=== PATIENT | male | born 1945 | race Two or more races ===

== ENCOUNTER → 2016-08-05 | Outpatient (CLI) | payer OTHER ==
--- NOTE | 2016-08-05 10:56 | RAD ---
Abdominal ultrasound - limited to the kidneys Indication: Stage III chronic kidney disease. Comparison: CT abdomen pelvis 11/04/2010. Procedure: Transabdominal ultrasound images are obtained of the kidneys and bladder. Findings: Right kidney measures 11.4 cm in length. Right kidney is without evidence of obstruction or stone. Parenchymal echogenicity of the right kidney appears appropriate. Left kidney demonstrates severe hydronephrosis which has developed from the previous study. Left kidney measures 10.2 cm in length. There is marked cortical thinning of left kidney. Visualized left ureter is also dilated. Urinary bladder wall appears thickened. The prevoid bladder volume is estimated at 75 mL. Post void bladder volume is small 45 mL. Impression: 1. Severe left hydroureteronephrosis. Definitive cause is not identified.Severe cortical thinning and atrophy of left kidney. 2. Unremarkable appearance of the right kidney. 3. Urinary bladder wall appears thickened. This is nonspecific, but could be indicative of chronic bladder outlet obstruction or cystitis. Recommend clinical correlation.
== END | disposition home or self-care (01) ==
LOC: US 09:04
PROVIDERS: ATTEND Internal Medicine Nephrology
DX: N18.3 Chronic kidney disease, stage 3 (moderate) (principal); N13.30 Unspecified hydronephrosis
CPT/HCPCS: 76770

== ENCOUNTER 2018-03-02 13:20 | Emergency (ER) | payer OTHER ==
[2018-03-02] MEDS ORDERED: ASPIRIN 81 MG TAB.CHEW PO ONE (13:45)
--- NOTE | 2018-03-02 13:49 | RAD ---
CT head without contrast 03/02/2018 CLINICAL INDICATION: Facial droop, left-sided weakness. COMPARISON: None. TECHNIQUE: Right temporal left occipital encephalomalacia. Patchy and confluent periventricular and deep white matter low-attenuation. No midline shift. No acute intracranial hemorrhage. Mild prominence of the ventricles and subarachnoid spaces. Incidental dural calcifications of the tentorium cerebelli the basal cisterns are patent. The visualized mastoid air cells and paranasal sinuses are well aerated. IMPRESSION: 1. No acute intracranial hemorrhage. 2. 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 3. Moderate nonspecific white matter disease, most commonly seen with chronic small vessel ischemic disease. These results were discussed with Dr. Simmons of the emergency service by telephone at 1:45 PM 03/02/[address] Reece Sigala. Electronically signed by: Reece Sigala MD (03/02/2018 1:46 PM) [facility]
[2018-03-02 13:59] LABS: BASO # 0.1 x10^3/uL (0.0-0.2); BASO % 1 % (0-3); EOS # 0.2 x10^3/uL (0.0-0.7); EOS % 2 % (0-3); HEMATOCRIT 41.2 % (39.0-53.0); HEMOGLOBIN 13.6 g/dL (13.0-17.5); LYMPH # 1.2 x10^3/uL (1.0-4.8); LYMPH % 17 % (24-48); MEAN CORPUSCULAR HEMOGLOBIN 30 pg (25-35); MEAN CORPUSCULAR HGB CONC 33 g/dL (31-37); MEAN CORPUSCULAR VOLUME 92 fL (79-100); MONO # 0.8 x10^3/uL (0.0-1.1); MONO % 11 % (0-9); NEUT % 70 % (31-73); PLATELET COUNT 236 x10^3/uL (140-400); RED BLOOD COUNT 4.48 x10^6/uL (4.30-5.70); RED CELL DISTRIBUTION WIDTH 13.9 % (11.5-14.5); WHITE BLOOD COUNT 7.2 x10^3/uL (4.0-11.0)
[2018-03-02] MEDS ORDERED: IV NORMAL SALINE 50ML 50 ML IV ONE (14:00)
[2018-03-02] MEDS ORDERED: ALTEPLASE 0 MG IV ONE (14:00)
[2018-03-02] MEDS ORDERED: LABETALOL 20 MG/4 ML DISP.SYRIN. IV PRN (14:00)
[2018-03-02] MEDS ORDERED: ALTEPLASE 0 MG IV SCH (14:00)
--- NOTE | 2018-03-02 14:13 | EKG ---
[address] [address] Test Date: 2018-03-02 Test Time: 13:35:39 Pat Name: TIESHA YOUSIF Department: Room: Gender: M Branch Assistant: : 1945 Requested By: ANGLE OVALLES Order Number: [id number] Reading MD: Deep Spaulding Measurements Intervals [place] Rate: 78 P: 31 TN: 174 QRS: -3 QRSD: 82 T: 11 QT: 364 QTc: 418 Interpretive Statements SINUS RHYTHM LEFTWARD AXIS LOW LIMB LEAD VOLTAGE QRS(T) CONTOUR ABNORMALITY CONSIDER ANTEROSEPTAL MYOCARDIAL DAMAGE POSSIBLY ABNORMAL ECG Electronically Signed On 03-06-2018 10:53:19 [employer] by Deep Spaulding
--- NOTE | 2018-03-02 14:29 | PHYS DOC ---
Adult General Chief Complaint Chief Complaint: NEURO SYMPTOMS/DEFICITS HPI HPI Patient is a 72-year-old male who presents with acute onset of left-sided weakness and facial droop. EMS had reported symptom onset at 12:15 PM. Upon arrival, patient has a complete left sided david-neglect. Upon patient's sister arrival, she indicates that patient had actually started with symptoms at about 11 PM. She states that he had gone to the bathroom and had fallen and when family went to help him up, he was slurring speech. Symptoms had acutely worsened at about 12:15 after which she was noted to have a left-sided facial droop and left-sided weakness. Patient denies any chest pain or shortness of breath. He also denies any headache. Review of Systems Review of Systems Constitutional: Denies fever or chills [] Respiratory: Denies cough or shortness of breath [] Cardiovascular: No additional information not addressed in HPI [] GI: Denies abdominal pain, nausea, vomiting or diarrhea [] Neurologic: Denies headache. Positive left sided weakness, sensory change and facial droop. [] All other systems were reviewed and found to be within normal limits, except as documented in this note. Current Medications Current Medications Current Medications Medications (Trade) Dose Ordered Sig/Sabi Start Time Stop Time Status Last Admin Dose Admin Alteplase, Recombinant 0 ml @ 0 mls/hr Q1H 03/02/18 14:00 03/02/18 14:01 UNV Aspirin (Children'S Aspirin) 324 mg 1X ONCE 03/02/18 13:45 03/02/18 13:46 UNV Labetalol HCl (Normodyne) 10 mg PRN Q10MIN PRN 03/02/18 14:00 UNV Nicardipine HCl 50 mg/Sodium Chloride 270 ml @ 27 mls/hr CONT PRN PRN 03/02/18 14:00 UNV Sodium Chloride 50 ml @ 0 mls/hr 1X ONCE 03/02/18 14:00 03/02/18 14:01 UNV Physical Exam Physical Exam Constitutional: Well developed, well nourished, no acute distress, non-toxic appearance. [] HENT: Normocephalic, atraumatic, bilateral external ears normal, oropharynx moist, no oral exudates, nose normal. [] Eyes: PERRLA, EOMI, conjunctiva normal, no discharge. [] Neck: Normal range of motion, no tenderness, supple. [] Cardiovascular: Regular rate and rhythm[] Lungs & Thorax: Bilateral breath sounds clear to auscultation [] Abdomen: Bowel sounds normal, soft, no tenderness. [] Skin: Warm, dry, no erythema, no rash. [] Back: No tenderness, no CVA tenderness. [] Extremities: No tenderness, no cyanosis, no clubbing, ROM intact, no edema. [] Neurologic: Awake and alert. Cranial nerve testing demonstrates cranial nerve deficits 2, 3, 5, 7 and 12 on the left, there is markedly left-sided weakness with near flaccid paralysis of the left upper extremity and significant weakness of 1+ to 2 minus out of 5 in the lower extremity, patient has full loss of sensation in the left arm and loss of light touch in the leg. [] Current Patient Data Lab Results Laboratory Tests Test 03/02/18 13:35 White Blood Count 7.2 x10^3/uL (4.0-11.0) Red Blood Count 4.48 x10^6/uL (4.30-5.70) Hemoglobin 13.6 g/dL (13.0-17.5) Hematocrit 41.2 % (39.0-53.0) Mean Corpuscular Volume 92 fL (79-100) Mean Corpuscular Hemoglobin 30 pg (25-35) Mean Corpuscular Hemoglobin Concent 33 g/dL (31-37) Red Cell Distribution Width 13.9 % (11.5-14.5) Platelet Count 236 x10^3/uL (140-400) Neutrophils (%) (Auto) 70 % (31-73) Lymphocytes (%) (Auto) 17 % (24-48) L Monocytes (%) (Auto) 11 % (0-9) H Eosinophils (%) (Auto) 2 % (0-3) Basophils (%) (Auto) 1 % (0-3) Neutrophils # (Auto) 5.0 x10^3uL (1.8-7.7) Lymphocytes # (Auto) 1.2 x10^3/uL (1.0-4.8) Monocytes # (Auto) 0.8 x10^3/uL (0.0-1.1) Eosinophils # (Auto) 0.2 x10^3/uL (0.0-0.7) Basophils # (Auto) 0.1 x10^3/uL (0.0-0.2) EKG EKG [] Radiology/Procedures Radiology/Procedures [] Impressions: CT head without contrast 03/02/2018 CLINICAL INDICATION: Facial droop, left-sided weakness. COMPARISON: None. TECHNIQUE: Right temporal left occipital encephalomalacia. Patchy and confluent periventricular and deep white matter low-attenuation. No midline shift. No acute intracranial hemorrhage. Mild prominence of the ventricles and subarachnoid spaces. Incidental dural calcifications of the tentorium cerebelli the basal cisterns are patent. The visualized mastoid air cells and paranasal sinuses are well aerated. IMPRESSION: 1. No acute intracranial hemorrhage. 2. 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 3. Moderate nonspecific white matter disease, most commonly seen with chronic small vessel ischemic disease. These results were discussed with Dr. Simmons of the emergency service by telephone at 1:45 PM 03/02/[address] Reece Sigala. Course & Med Decision Making Course & Med Decision Making Pertinent Labs and Imaging studies reviewed. (See chart for details) Patient moved to CT scanner upon arrival and upon arrival back from CT scanner was evaluated by your medical staff. IV was established and blood work drawn. NIH stroke scale was completed to the best of staff ability. Please refer to report. [facility] urology was consultation and they recommend transfer to for possible thrombectomy. At this point the bat line was contacted and Dr. Viera will accept patient in transfer. Dragon Disclaimer Dragon Disclaimer This electronic medical record was generated, in whole or in part, using a voice recognition dictation system. Departure Departure: Impression: Primary Impression: Neurologic deficit due to acute ischemic cerebrovascular accident (CVA) Disposition: 02 XFER SHT-TRM HOSP Condition: GUARDED Referrals: KATHIA EASTON (PCP) ANGLE SIMMONS Jr. DO Mar 02, 2018 14:29
[2018-03-02 14:35] LABS: ALBUMIN 2.5 g/dL (3.4-5.0); ALBUMIN/GLOBULIN RATIO 0.8 (1.0-1.7); CREATININE 1.5 mg/dL (0.7-1.3); POTASSIUM 3.4 mmol/L (3.5-5.1); TOTAL BILIRUBIN 0.6 mg/dL (0.2-1.0); TOTAL PROTEIN 5.6 g/dL (6.4-8.2)
[2018-03-02 15:16] VITALS: BP 145/71
--- NOTE | 2018-03-02 16:17 | RAD ---
Single view chest 03/02/2018 CLINICAL INDICATION: Code stroke. COMPARISON: None. FINDINGS: There is a rounded mass overlying the left lung base does not silhouette the left heart border. Right lung is clear. No pneumothorax. IMPRESSION: Suspicion for left lower lobe mass. CT chest is recommended for further evaluation. This result was discussed with Dr. Simmons of the emergency service by telephone at 4:15 PM 03/02/[address] Reece Sigala. Electronically signed by: Reece Sigala MD (03/02/2018 4:14 PM) [facility]
== END 2018-03-02 14:10 | disposition short-term general hospital (02) ==
LOC: ER 13:20
DX: I63.89 Other cerebral infarction (principal); G93.89 Other specified disorders of brain
CPT/HCPCS: 36415; 37195; 70450; 71045; 80053; 84484; 85025; 85610; 85730; 93005; 99285; J2997

== ENCOUNTER 2018-06-04 09:26 | Emergency (ER) | payer OTHER ==
[2018-06-04 09:49] VITALS: BP 138/84
--- NOTE | 2018-06-04 10:15 | PHYS DOC ---
Past History Past Medical History: CVA, Diabetes, Hypertension Past Surgical History: No Surgical History Alcohol Use: None Drug Use: None Adult General Chief Complaint Chief Complaint: FOOT INJURY PAIN HPI HPI 72-year-old male presents with right foot pain. The patient states that he noticed the ends of his toe starting a black 4 days ago. He comes in today because he took off his sock and had soreness and pain in his distal foot and noticed there was lots of black skin across his toes. The patient is a diabetic. He admits his blood sugar is not well-controlled though does not know what his usual blood sugar is. He denies fever or chills. He also has an ulcer on the bottom of his left big toe but that has been there for a long time. Review of Systems Review of Systems Constitutional: Denies fever or chills [] Eyes: Denies change in visual acuity, redness, or eye pain [] HENT: Denies nasal congestion or sore throat [] Respiratory: Denies cough or shortness of breath [] Cardiovascular: No additional information not addressed in HPI [] GI: Denies abdominal pain, nausea, vomiting, bloody stools or diarrhea [] : Denies dysuria or hematuria [] Musculoskeletal: Right foot pain[] Integument: Denies rash or skin lesions [] Neurologic: Denies headache, focal weakness or sensory changes [] Endocrine: Denies polyuria or polydipsia [] All other systems were reviewed and found to be within normal limits, except as documented in this note. Allergies Allergies Allergies Coded Allergies Type Severity Reaction Last Updated Verified No Known Drug Allergies 03/02/18 No Physical Exam Physical Exam Constitutional: Well developed, well nourished, no acute distress, non-toxic appearance. [] HENT: Normocephalic, atraumatic, bilateral external ears normal, oropharynx moist, no oral exudates, nose normal. [] Eyes: PERRLA, EOMI, conjunctiva normal, no discharge. [] Neck: Normal range of motion, no tenderness, supple, no stridor. [] Cardiovascular:Heart rate regular rhythm, no murmur [] Lungs & Thorax: Bilateral breath sounds clear to auscultation [] Abdomen: Bowel sounds normal, soft, no tenderness, no masses, no pulsatile masses. [] Skin: Warm, dry, no erythema, no rash. [] Back: No tenderness, no CVA tenderness. [] Extremities: Right distal toes with black skin necrosis on all 5. Almost the entire fifth digit is involved. Half centimeter ulceration in the bottom of the left great toe. No obvious cellulitis. Surrounding skin with normal cap refill.[ ] Neurologic: Alert and oriented X 3, normal motor function, normal sensory function, no focal deficits noted. [] Psychologic: Affect normal, judgement normal, mood normal. [] Current Patient Data Vital Signs Vital Signs Date Time Temp Pulse Resp B/P (MAP) Pulse Ox O2 Delivery O2 Flow Rate FiO2 06/04/18 09:49 Room Air 06/04/18 09:49 97.8 83 20 99 EKG EKG [] Radiology/Procedures Radiology/Procedures [] Impressions: CT of the left foot without contrast Indication: RIGHT FOOT NECROSIS, ULCER ON BOTTOM ASPECT OF 1ST DIGIT, ALL OF DIGITS ARE BLACK ONSET 4 DAYS AGO PER PATIENT, OOZING, PT DIABETIC. FOOT IS PAINFUL TO TOUCH. Exposure: One or more of the following individualized dose reduction techniques were utilized for this examination: 1. Automated exposure control 2. Adjustment of the mA and/or kV according to patient size 3. Use of iterative reconstruction technique. Comparison: None are available. TECHNIQUE: Routine multiplanar reconstructions are obtained after scanning of the right foot. No intravenous contrast. FINDINGS: Generalized bone demineralization. Small accessory navicular bone identified with mild degenerative changes at the synchondrosis. No evidence of an acute fracture or dislocation. Primary osteoarthritis is identified. No aggressive bone destruction is suggested. No obvious acute soft tissue fluid collection. The distal tibia demonstrates fixation screws at the medial malleolus. There is also plate and screw fixation of the distal fibula with evidence of an old fracture. Calcaneal enthesophytes. IMPRESSION: Primary osteoarthritis. No acute fracture or aggressive bone destruction. MR of the foot could be of benefit to evaluate for osteomyelitis or abscess. Electronically signed by: Toni Lopez MD (06/04/2018 10:56 AM) [facility] DICTATED AND SIGNED BY: TONI LOPEZ MD DATE: 06/04/18 1046 CC: CELINA JOYNER DO; KATHIA EASTON Course & Med Decision Making Course & Med Decision Making Pertinent Labs and Imaging studies reviewed. (See chart for details) The patient has obvious ischemic ulcers on the right distal toes. I have ordered a CT of the foot. The CT does not show any aggressive bone erosion. His chest x-ray is negative for acute findings. I will consult orthopedics work on transferring him to [facility]. I discussed the patient with Dr. Rucker, orthopedics and he would like the patient transferred to [facility]. I discussed the patient with Dr. Perez, the hospitalist and he has accepted the patient for transfer and admission. [] Dragon Disclaimer Dragon Disclaimer This electronic medical record was generated, in whole or in part, using a voice recognition dictation system. Departure Departure: Impression: Primary Impression: Dry gangrene Disposition: XFER SHT-TRM HOSP Condition: STABLE Referrals: KATHIA EASTON (PCP) CELINA JOYNER DO Jun 04, 2018 10:15
--- NOTE | 2018-06-04 10:32 | RAD ---
CHEST PA LATERAL History: PRE OP FOR RIGHT FOOT. RIGHT FOOT NECROSIS. DIABETIC PT. Comparison: March 02, 2018 Heart size is not enlarged. No evidence of pneumothorax, pleural effusion or focal airspace consolidation. Straightening of the normal thoracic kyphosis. Mild wedging of thoracolumbar vertebral body could be developmental or due to a prior compression fracture. IMPRESSION: No acute consolidating infiltrate. Electronically signed by: Wilson Lopez MD (06/04/2018 10:29 AM) [facility]
[2018-06-04 10:39] LABS: BASO # 0.1 x10^3/uL (0.0-0.2); BASO % 1 % (0-3); EOS # 0.1 x10^3/uL (0.0-0.7); EOS % 1 % (0-3); HEMATOCRIT 35.3 % (39.0-53.0); HEMOGLOBIN 11.7 g/dL (13.0-17.5); LYMPH # 1.6 x10^3/uL (1.0-4.8); LYMPH % 13 % (24-48); MEAN CORPUSCULAR HEMOGLOBIN 30 pg (25-35); MEAN CORPUSCULAR HGB CONC 33 g/dL (31-37); MEAN CORPUSCULAR VOLUME 91 fL (79-100); MONO # 1.2 x10^3/uL (0.0-1.1); MONO % 10 % (0-9); NEUT # 9.6 x10^3uL (1.8-7.7); NEUT % 76 % (31-73); PLATELET COUNT 519 x10^3/uL (140-400); RED CELL DISTRIBUTION WIDTH 14.1 % (11.5-14.5); WHITE BLOOD COUNT 12.7 x10^3/uL (4.0-11.0)
[2018-06-04 10:54] LABS: ALBUMIN 2.6 g/dL (3.4-5.0); ALBUMIN/GLOBULIN RATIO 0.5 (1.0-1.7); CALCIUM 9.5 mg/dL (8.5-10.1); POTASSIUM 4.1 mmol/L (3.5-5.1); TOTAL BILIRUBIN 0.7 mg/dL (0.2-1.0); TOTAL PROTEIN 8.3 g/dL (6.4-8.2)
--- NOTE | 2018-06-04 10:59 | RAD ---
CT of the left foot without contrast Indication: RIGHT FOOT NECROSIS, ULCER ON BOTTOM ASPECT OF 1ST DIGIT, ALL OF DIGITS ARE BLACK ONSET 4 DAYS AGO PER PATIENT, OOZING, PT DIABETIC. FOOT IS PAINFUL TO TOUCH. Exposure: One or more of the following individualized dose reduction techniques were utilized for this examination: 1. Automated exposure control 2. Adjustment of the mA and/or kV according to patient size 3. Use of iterative reconstruction technique. Comparison: None are available. TECHNIQUE: Routine multiplanar reconstructions are obtained after scanning of the right foot. No intravenous contrast. FINDINGS: Generalized bone demineralization. Small accessory navicular bone identified with mild degenerative changes at the synchondrosis. No evidence of an acute fracture or dislocation. Primary osteoarthritis is identified. No aggressive bone destruction is suggested. No obvious acute soft tissue fluid collection. The distal tibia demonstrates fixation screws at the medial malleolus. There is also plate and screw fixation of the distal fibula with evidence of an old fracture. Calcaneal enthesophytes. IMPRESSION: Primary osteoarthritis. No acute fracture or aggressive bone destruction. MR of the foot could be of benefit to evaluate for osteomyelitis or abscess. Electronically signed by: Wilson Lopez MD (06/04/2018 10:56 AM) [facility]
[2018-06-04 11:33] LABS: BACTERIA,URINE 0 /HPF (0-FEW); BILIRUBIN,URINE NEG (NEG); CLARITY,URINE CLEAR; COLOR,URINE YELLOW; GLUCOSE,URINE NEG (NEG); NITRITE,URINE NEG (NEG); RBC,URINE 0 /HPF (0-2); UROBILINOGEN,URINE 0.2 mg/dL (0.2 mg/dL); WBC,URINE RARE /HPF (0-4)
[2018-07-28] MEDS ORDERED: METO5TAB4 PO (12:12)
[2018-07-28] MEDS ORDERED: AMOX1TAB58 PO (12:12)
[2018-07-28] MEDS ORDERED: FURO-68 PO (12:12)
== END 2018-06-04 14:27 | disposition short-term general hospital (02) ==
LOC: ER 09:26
DX: E11.52 Type 2 diabetes mellitus with diabetic peripheral angiopathy with gangrene (principal); I96 Gangrene, not elsewhere classified; I10 Essential (primary) hypertension; M19.072 Primary osteoarthritis, left ankle and foot; Z86.73 Personal history of transient ischemic attack (TIA), and cerebral infarction without residual deficits
CPT/HCPCS: 36415; 71046; 73700; 80053; 81001; 85025; 85610; 85730; 99285

== ENCOUNTER 2018-06-23 19:26 | Inpatient (IN) | payer OTHER ==
[~2018-06-23] VITALS: Ht 170.2 cm; Wt 103.1 kg
[2018-06-23 20:15] LABS: BASO % 1 % (0-3); EOS # 0.2 x10^3/uL (0.0-0.7); EOS % 5 % (0-3); HEMATOCRIT 20.3 % (39.0-53.0); LYMPH # 0.8 x10^3/uL (1.0-4.8); LYMPH % 17 % (24-48); MEAN CORPUSCULAR HEMOGLOBIN 30 pg (25-35); MEAN CORPUSCULAR HGB CONC 34 g/dL (31-37); MEAN CORPUSCULAR VOLUME 89 fL (79-100); MONO # 0.5 x10^3/uL (0.0-1.1); MONO % 10 % (0-9); NEUT # 3.1 x10^3uL (1.8-7.7); NEUT % 66 % (31-73); PLATELET COUNT 103 x10^3/uL (140-400); RED BLOOD COUNT 2.29 x10^6/uL (4.30-5.70); RED CELL DISTRIBUTION WIDTH 13.9 % (11.5-14.5); WHITE BLOOD COUNT 4.6 x10^3/uL (4.0-11.0)
[2018-06-23 20:21] LABS: HEMOGLOBIN 6.9 g/dL (13.0-17.5)
[2018-06-23 20:34] LABS: ALBUMIN 2.2 g/dL (3.4-5.0); ALBUMIN/GLOBULIN RATIO 0.7 (1.0-1.7); CALCIUM 8.4 mg/dL (8.5-10.1); CREATININE 1.8 mg/dL (0.7-1.3); GFR 37.3; MAGNESIUM 1.6 mg/dL (1.8-2.4); TOTAL BILIRUBIN 0.6 mg/dL (0.2-1.0); TOTAL PROTEIN 5.5 g/dL (6.4-8.2)
--- NOTE | 2018-06-23 20:59 | PHYS DOC ---
Past History Past Medical History: CVA, Diabetes, Hypertension Past Surgical History: Other Alcohol Use: None Drug Use: None Adult General Chief Complaint Chief Complaint: ALTERED MENTAL STATUS [facility] HPI Patient is a 72-year-old male who presents via EMS with reports of mental status change. Patient reportedly had woken up from a nap and was confused as to his surroundings, with report that he Stating that he was not in his room when it was indeed his room. Upon arrival, patient is oriented 4 and states that he was confused because when he awoke he found that his furniture had been moved around and that made him feel disoriented. Currently he denies any complaints to include chest pain, shortness of breath, abdominal pain, nausea or vomiting. Review of Systems Review of Systems Constitutional: Denies fever or chills [] Respiratory: Denies cough or shortness of breath [] Cardiovascular: No additional information not addressed in HPI [] GI: Denies abdominal pain, nausea, vomiting, bloody stools. Patient does admit to diarrhea. [] Neurologic: Denies headache, focal weakness or sensory changes [] All other systems were reviewed and found to be within normal limits, except as documented in this note. Allergies Allergies Allergies Coded Allergies Type Severity Reaction Last Updated Verified No Known Drug Allergies 03/02/18 No Physical Exam Physical Exam Constitutional: Well developed, well nourished, no acute distress, non-toxic appearance. [] HENT: Normocephalic, atraumatic, bilateral external ears normal, oropharynx moist, no oral exudates, nose normal. [] Eyes: PERRLA, EOMI, conjunctiva normal, no discharge. [] Neck: Normal range of motion, no tenderness, supple, no stridor. [] Cardiovascular:Heart rate regular rhythm, no murmur [] Lungs & Thorax: Bilateral breath sounds clear to auscultation [] Abdomen: Bowel sounds normal, soft, no tenderness. [] Skin: Warm, dry, no erythema, no rash. [] Extremities: No tenderness, no cyanosis, ROM intact. [] Neurologic: Alert and oriented X 3, no focal deficits noted. [] Current Patient Data Vital Signs Vital Signs Date Time Temp Pulse Resp B/P (MAP) Pulse Ox O2 Delivery O2 Flow Rate FiO2 06/23/18 19:45 98.0 78 18 98 Room Air Lab Results Laboratory Tests Test 06/23/18 20:03 White Blood Count 4.6 x10^3/uL (4.0-11.0) Red Blood Count 2.29 x10^6/uL (4.30-5.70) L Hemoglobin 6.9 g/dL (13.0-17.5) *L Hematocrit 20.3 % (39.0-53.0) L Mean Corpuscular Volume 89 fL (79-100) Mean Corpuscular Hemoglobin 30 pg (25-35) Mean Corpuscular Hemoglobin Concent 34 g/dL (31-37) Red Cell Distribution Width 13.9 % (11.5-14.5) Platelet Count 103 x10^3/uL (140-400) L Neutrophils (%) (Auto) 66 % (31-73) Lymphocytes (%) (Auto) 17 % (24-48) L Monocytes (%) (Auto) 10 % (0-9) H Eosinophils (%) (Auto) 5 % (0-3) H Basophils (%) (Auto) 1 % (0-3) Neutrophils # (Auto) 3.1 x10^3uL (1.8-7.7) Lymphocytes # (Auto) 0.8 x10^3/uL (1.0-4.8) L Monocytes # (Auto) 0.5 x10^3/uL (0.0-1.1) Eosinophils # (Auto) 0.2 x10^3/uL (0.0-0.7) Basophils # (Auto) 0.0 x10^3/uL (0.0-0.2) Sodium Level 143 mmol/L (136-145) Potassium Level 4.0 mmol/L (3.5-5.1) Chloride Level 108 mmol/L (98-107) H Carbon Dioxide Level 27 mmol/L (21-32) Anion Gap 8 (6-14) Blood Urea Nitrogen 17 mg/dL (8-26) Creatinine 1.8 mg/dL (0.7-1.3) H Estimated GFR (Cockcroft-Gault) 37.3 BUN/Creatinine Ratio 9 (6-20) Glucose Level 103 mg/dL (70-99) H Calcium Level 8.4 mg/dL (8.5-10.1) L Magnesium Level 1.6 mg/dL (1.8-2.4) L Total Bilirubin 0.6 mg/dL (0.2-1.0) Aspartate Amino Transferase (AST) 22 U/L (15-37) Alanine Aminotransferase (ALT) 18 U/L (16-63) Alkaline Phosphatase 105 U/L (46-116) Total Protein 5.5 g/dL (6.4-8.2) L Albumin 2.2 g/dL (3.4-5.0) L Albumin/Globulin Ratio 0.7 (1.0-1.7) L EKG EKG [] Radiology/Procedures Radiology/Procedures [] Course & Med Decision Making Course & Med Decision Making Pertinent Labs and Imaging studies reviewed. (See chart for details) [] Dragon Disclaimer Dragon Disclaimer This electronic medical record was generated, in whole or in part, using a voice recognition dictation system. Departure Departure: Impression: Primary Impression: Anemia Disposition: ADMITTED INPATIENT Admitting Physician: Vitor Rg Condition: GOOD Referrals: KATHIA STEELE MD (PCP) Problem Qualifiers Primary Impression: Anemia Anemia type: unspecified type Qualified Codes: D64.9 - Anemia, unspecified ANGLE OVALLES Jr. DO Jun 23, 2018 20:59
[2018-06-23] MEDS ORDERED: ACETAMINOPHEN 325 MG TABLET PO PRN (21:15)
[2018-06-23] MEDS ORDERED: MAGNESIUM OXIDE 400 MG TABLET PO ONE (21:30)
[2018-06-23 21:55] VITALS: BP 150/86
[2018-06-23] MEDS ORDERED: ACET-704 PO (22:08)
[2018-06-23] MEDS ORDERED: AMLO5TAB10 PO (22:10)
[2018-06-23] MEDS ORDERED: ATOR40TA59 PO (22:10)
[2018-06-23] MEDS ORDERED: ASPI-630 PO (22:10)
[2018-06-23 22:20] VITALS: BP 150/86
[2018-06-23] MEDS ORDERED: PIPE2.255 IV (22:38)
[2018-06-23] MEDS ORDERED: CHOL2000 PO (22:38)
[2018-06-23] MEDS ORDERED: DULA1.5P SQ (22:38)
[2018-06-23] MEDS ORDERED: INSU300I SQ (22:38)
[2018-06-23] MEDS ORDERED: METO-239 PO (22:38)
[2018-06-23] MEDS ORDERED: GLIM1TAB2 PO (22:38)
[2018-06-23] MEDS ORDERED: TAMS0.4C97 PO (22:38)
[2018-06-23] MEDS ORDERED: NIAC500T PO (22:38)
[2018-06-23] MEDS ORDERED: HYDR-2145 PO (22:38)
[2018-06-23] MEDS ORDERED: LEVO50TA5 PO (22:38)
[2018-06-23] MEDS ORDERED: MULT1TAB52 PO (22:38)
[2018-06-23] MEDS ORDERED: CLOP75TA PO (22:38)
[2018-06-23] MEDS ORDERED: LACT1CAP2 PO (22:38)
[2018-06-23 22:40] VITALS: BP_SYST 139; BP_DIAS 64; BP_DIAS 67
[2018-06-23 23:39] VITALS: BP 148/73
[2018-06-23 23:40] VITALS: BP 148/73
[2018-06-23] MEDS ORDERED: PIP/TAZO PER PHARMACY MC PRN (23:45)
[2018-06-24] VITALS (7 sets, daily range): BP systolic 111–153; BP diastolic 66–78
[2018-06-24] MEDS: PIPERACILLIN/TAZOBACTAM 2.25 GM in IV NORMAL SALINE 50ML 50 ML IV SCH ×4 (01:25→16:43)
[2018-06-24 06:05] LABS: CALCIUM 8.5 mg/dL (8.5-10.1); CREATININE 1.8 mg/dL (0.7-1.3); GFR 37.3; POTASSIUM 3.8 mmol/L (3.5-5.1)
[2018-06-24 06:12] LABS: BASO % 1 % (0-3); EOS # 0.2 x10^3/uL (0.0-0.7); EOS % 5 % (0-3); HEMATOCRIT 22.7 % (39.0-53.0); HEMOGLOBIN 7.7 g/dL (13.0-17.5); LYMPH # 0.9 x10^3/uL (1.0-4.8); LYMPH % 20 % (24-48); MEAN CORPUSCULAR HEMOGLOBIN 30 pg (25-35); MEAN CORPUSCULAR HGB CONC 34 g/dL (31-37); MEAN CORPUSCULAR VOLUME 88 fL (79-100); MONO # 0.5 x10^3/uL (0.0-1.1); MONO % 11 % (0-9); NEUT # 2.7 x10^3uL (1.8-7.7); NEUT % 62 % (31-73); PLATELET COUNT 92 x10^3/uL (140-400); RED BLOOD COUNT 2.58 x10^6/uL (4.30-5.70); RED CELL DISTRIBUTION WIDTH 13.9 % (11.5-14.5); WHITE BLOOD COUNT 4.3 x10^3/uL (4.0-11.0)
[2018-06-24] MEDS ORDERED: DEXTROSE 50% 25 GM / 50ML DISP.SYRIN. IV PRN (11:45)
[2018-06-24] MEDS ORDERED: GLIMEPIRIDE 2 MG TABLET PO SCH (12:00)
[2018-06-24] MEDS: INSULIN LISPRO 300 UNITS/3 ML INSULN.PEN. SQ SCH ×2 (12:00→17:00)
[2018-06-24] MEDS ORDERED: PIPERACILLIN/TAZOBACTAM 2.25 GM VIAL IV SCH (12:00)
[2018-06-24] MEDS: CHOLECALCIFEROL (VITAMIN D3) 1,000 UNIT TABLET PO SCH (12:25)
[2018-06-24] MEDS: LEVOTHYROXINE 50 MCG TABLET PO SCH (12:25)
[2018-06-24] MEDS: CLOPIDOGREL BISULFATE 75 MG TABLET PO SCH (12:25)
[2018-06-24] MEDS: ASPIRIN ENTERIC COATED 81 MG TABLET.DR. PO SCH (12:25)
[2018-06-24] MEDS: MULTIVITAMIN with MINERAL TABLET. PO SCH (12:26)
[2018-06-24] MEDS: METOPROLOL SUCC 24HR ER 25 MG TAB.ER.24H. PO SCH (12:26)
[2018-06-24] MEDS: hydroCHLOROthiazide 25 MG TABLET PO SCH (12:26)
[2018-06-24] MEDS: amLODIPine BESYLATE 5 MG TABLET PO SCH (12:26)
[2018-06-24] MEDS ORDERED: MAGNESIUM SULFATE 2GM 50 ML IV ONE (12:45)
[2018-06-24 12:50] LABS: FECAL OB PT NEGATIVE (NEG)
--- NOTE | 2018-06-24 16:28 | PDOC1 ---
History and Physical Chief Complaint: Chief Complain: confusion and weakness ProblemList: Anemia HPI: HPI: The patient is a 72 year old male with diabetes type 2, hyperlipidemia, coronary artery disease, hypothyroidism. He comes to the hospital because he woke up confused. He came to the ER and was admitted to the hospital because his hemoglobin 6.9. he recently had an amputation of his right toes last Tuesday. He states that he has been having some oozing around that area. He denies any hematemesis or hematochezia. He denies any fever, chills, nausea, vomiting, abdominal pain, constipation dysuria. He states that he has been having a lot of diarrhea, about 4 or 6 times per day. He received antibiotics while he was at [facility]. He also has swelling on his legs which he doesn't know the reason why. He doesn't have the diagnosis of heart failure. Past Medical History: PMH: coronary artery disease, diabetes type 2, hypothyroidism, hyperlipidemia Cardiovascular: CAD Infectious disease: Other (Osteomyelitis) Endocrine: Diabetes Past Surgical History: PSH: R toe amputations Allergies: Allergies: Coded Allergies: No Known Drug Allergies (Unverified , 03/02/18) Current Medications: Current Medications: Current Medications Medications (Trade) Dose Ordered Sig/Sabi Start Time Stop Time Status Last Admin Dose Admin Acetaminophen (Tylenol) 650 mg PRN Q4HRS PRN 06/23/18 21:15 06/24/18 21:14 Acetaminophen/ Codeine Phosphate (Tylenol #3) 1 tab Q6HRS PRN 06/24/18 11:30 Amlodipine Besylate (Norvasc) 5 mg DAILY 06/24/18 12:00 06/24/18 12:26 Aspirin (Aspirin Enteric Coated) 81 mg DAILYWBKFT 06/24/18 12:00 06/24/18 12:25 Atorvastatin Calcium (Lipitor) 40 mg QHS 06/24/18 21:00 Clopidogrel Bisulfate (Plavix) 75 mg DAILY 06/24/18 12:00 06/24/18 12:25 Dextrose 12.5 gm PRN Q15MIN PRN 06/24/18 11:45 Glimepiride (Amaryl) 1 mg BID 06/24/18 12:00 06/24/18 12:25 Hydrochlorothiazide (Hydrodiuril) 25 mg DAILY 06/24/18 12:00 06/24/18 12:26 Insulin Glargine (Lantus) 40 units HS 06/24/18 21:00 Insulin Human Lispro (HumaLOG) 0-5 UNITS TIDWMEALS 06/24/18 12:00 Lactobacillus Rhamnosus (Culturelle) 1 cap BID 06/24/18 21:00 Levothyroxine Sodium (Synthroid) 50 mcg DAILY06 06/24/18 12:00 06/24/18 12:25 Magnesium Oxide (Magnesium Oxide) 400 mg 1X ONCE 06/23/18 21:30 06/23/18 21:31 DC 06/23/18 21:26 Magnesium Sulfate 50 ml @ 25 mls/hr 1X ONCE 06/24/18 12:45 06/24/18 14:44 DC 06/24/18 13:14 Metoprolol Succinate (Toprol Xl) 25 mg DAILY 06/24/18 12:00 06/24/18 12:26 Multivitamins/ Calcium (Thera-M Plus) 1 tab DAILY 06/24/18 12:00 06/24/18 12:26 Niacin (Slo-Niacin) 500 mg QHS 06/24/18 21:00 Non-Formulary Medication (Dulaglutide (Trulicity)) 1.5 mg DAILY 06/25/18 09:00 06/25/18 09:00 DC Non-Formulary Medication (Lactobacillus Acidophilus (Acidophilus)) 1 each BID 06/24/18 21:00 UNV Piperacillin Sod/ Tazobactam Sod (Zosyn Per Pharmacy) 1 each PRN DAILY PRN 06/23/18 23:45 Piperacillin Sod/ Tazobactam Sod (Zosyn) 2.25 gm Q6HRS 06/24/18 12:00 UNV Piperacillin Sod/ Tazobactam Sod 2.25 gm/Sodium Chloride 50 ml @ 100 mls/hr Q6HRS 06/24/18 00:00 06/24/18 12:25 Tamsulosin HCl (Flomax) 0.4 mg HS 06/24/18 21:00 Vitamin D (Vitamin D3) 5,000 unit DAILY 06/24/18 12:00 06/24/18 12:25 ROS: ROS: Constitutional: No fever or chills Eyes: No eye pain or blurred vision Skin: the patient is having some oozing from his right foot Cardiovascular: No chest pain, syncope, palpitations, dyspnea on exertion, or edema Respiratory: No cough or difficulty breathing Gastrointestinal: No nausea, vomiting, or abdominal pain Neurologic: No headaches or focal neurologic deficits Endocrine: No heat or cold intolerance Genitourinary: No incontinence or hematuria Musculoskeletal: No joint pain, the patient has some swelling on his lower extremities Lymphatics: No enlarged lymph nodes Psychiatric: No anxiety or depression PE: PE: Gen.: Alert, pleasant, no apparent distress HEENT: Normocephalic atraumatic, PERRLA EOMI, no scleral icterus, oral mucosa pink and moist Neck: Supple, no lymphadenopathy, nontender Cardiovascular: Normal S1 and S2 no murmurs Pulmonary: Lungs are clear bilaterally with good air movement no respiratory distress Abdomen: Soft nontender non-distended, bowel sounds present no masses Extremities: No clubbing, cyanosis, +2 pitting edema bilaterally on his lower extremities Neuro: Alert and oriented 3, cranial nerves II through XII grossly intact, no lateralizing neuro deficits Skin: Right toes amputated, incision clear dry and intact with sutures, non- tender Vitals: Vitals: Vital Signs Date Time Temp Pulse Resp B/P (MAP) Pulse Ox O2 Delivery O2 Flow Rate FiO2 06/24/18 14:38 85 20 141/74 (96) 94 Room Air 06/24/18 10:35 97.7 Labs: Labs: Laboratory Tests Test 06/23/18 20:03 06/23/18 22:52 06/23/18 23:15 06/24/18 05:30 White Blood Count 4.6 x10^3/uL (4.0-11.0) 4.3 x10^3/uL (4.0-11.0) Red Blood Count 2.29 x10^6/uL (4.30-5.70) 2.58 x10^6/uL (4.30-5.70) Hemoglobin 6.9 g/dL (13.0-17.5) 7.7 g/dL (13.0-17.5) Hematocrit 20.3 % (39.0-53.0) 22.7 % (39.0-53.0) Mean Corpuscular Volume 89 fL (79-100) 88 fL (79-100) Mean Corpuscular Hemoglobin 30 pg (25-35) 30 pg (25-35) Mean Corpuscular Hemoglobin Concent 34 g/dL (31-37) 34 g/dL (31-37) Red Cell Distribution Width 13.9 % (11.5-14.5) 13.9 % (11.5-14.5) Platelet Count 103 x10^3/uL (140-400) 92 x10^3/uL (140-400) Neutrophils (%) (Auto) 66 % (31-73) 62 % (31-73) Lymphocytes (%) (Auto) 17 % (24-48) 20 % (24-48) Monocytes (%) (Auto) 10 % (0-9) 11 % (0-9) Eosinophils (%) (Auto) 5 % (0-3) 5 % (0-3) Basophils (%) (Auto) 1 % (0-3) 1 % (0-3) Neutrophils # (Auto) 3.1 x10^3uL (1.8-7.7) 2.7 x10^3uL (1.8-7.7) Lymphocytes # (Auto) 0.8 x10^3/uL (1.0-4.8) 0.9 x10^3/uL (1.0-4.8) Monocytes # (Auto) 0.5 x10^3/uL (0.0-1.1) 0.5 x10^3/uL (0.0-1.1) Eosinophils # (Auto) 0.2 x10^3/uL (0.0-0.7) 0.2 x10^3/uL (0.0-0.7) Basophils # (Auto) 0.0 x10^3/uL (0.0-0.2) 0.0 x10^3/uL (0.0-0.2) Sodium Level 143 mmol/L (136-145) 143 mmol/L (136-145) Potassium Level 4.0 mmol/L (3.5-5.1) 3.8 mmol/L (3.5-5.1) Chloride Level 108 mmol/L (98-107) 109 mmol/L (98-107) Carbon Dioxide Level 27 mmol/L (21-32) 27 mmol/L (21-32) Anion Gap 8 (6-14) 7 (6-14) Blood Urea Nitrogen 17 mg/dL (8-26) 17 mg/dL (8-26) Creatinine 1.8 mg/dL (0.7-1.3) 1.8 mg/dL (0.7-1.3) Estimated GFR (Cockcroft-Gault) 37.3 37.3 BUN/Creatinine Ratio 9 (6-20) Glucose Level 103 mg/dL (70-99) 90 mg/dL (70-99) Calcium Level 8.4 mg/dL (8.5-10.1) 8.5 mg/dL (8.5-10.1) Magnesium Level 1.6 mg/dL (1.8-2.4) 1.5 mg/dL (1.8-2.4) Total Bilirubin 0.6 mg/dL (0.2-1.0) Aspartate Amino Transf (AST/SGOT) 22 U/L (15-37) Alanine Aminotransferase (ALT/SGPT) 18 U/L (16-63) Alkaline Phosphatase 105 U/L (46-116) Total Protein 5.5 g/dL (6.4-8.2) Albumin 2.2 g/dL (3.4-5.0) Albumin/Globulin Ratio 0.7 (1.0-1.7) Glucose (Fingerstick) 105 mg/dL (70-99) Nasal Screen MRSA (PCR) Negative (Negative) [id number]-Type Natriuretic Peptide 3541 pg/mL (0-124) Test 06/24/18 07:27 06/24/18 11:17 06/24/18 11:45 Glucose (Fingerstick) 48 mg/dL (70-99) 83 mg/dL (70-99) Stool Occult Blood Negative (NEG) VTE Prophylaxis: VTE Prophylaxis Devices: No VTE Pharmacological Prophylaxi: Contraindicated Assessment/Plan: A/P: Acute blood loss anemia likely to to post surgical reasons - - - we will check hemoglobin tomorrow, we will also check for occult blood, we will transfuse for hemoglobin less than 7 Diarrhea - - - checking stool culture, c-diff Osteomyelitis -- undergoing treatment, continuous zosyn for now Leg swelling - checking BNP, the patient likely needs an echocardiogram as an outpatient and a cardiology evaluation since he has history of coronary artery disease, if BNP elevated we might start him on diuretics. Hypertension - - continue home medications Hypothyroidism - - continue home medications Diabetes type 2 -- continue long-acting insulin, and add sliding scale insulin EMMA CRUZ MD Jun 24, 2018 16:28
[2018-06-24] MEDS ORDERED: FUROSEMIDE 40 MG/4 ML VIAL IVP ONE (17:00)
--- NOTE | 2018-06-24 18:07 | RAD ---
Chest AP portable at 1740: Reason for examination: Elevated blood pressure and confusion. Comparison is made to previous study dated 06/04/2018. PICC line is present on the right with the tip in the superior vena cava. Heart and mediastinum are unremarkable. Lung garcia show some blunting of the costophrenic angle on the left consistent with a pleural effusion which is new since previous exam. The right lung field is clear. No acute bony abnormalities are seen. IMPRESSION: Hazy density at the left lateral costophrenic angle consistent with pleural effusion which is new since previous exam. Electronically signed by: Jyotsna Sagastume MD (06/24/2018 6:04 PM) [id number]
[2018-06-24] MEDS ORDERED: NON FORMULARY ITEM (Lactobacillus Acidophilus (Acidophilus) 1 EACH) PO SCH (21:00)
[2018-06-24] MEDS: LACTOBACILLUS RHAMNOSUS GG 1 CAPSULE. PO SCH (21:13)
[2018-06-24] MEDS: TAMSULOSIN 0.4 MG CAP.ER.24H. PO SCH (21:13)
[2018-06-24] MEDS: ATORVASTATIN CALCIUM 20 MG TABLET PO SCH (21:13)
[2018-06-24] MEDS: NIACIN ER 500 MG TABLET.ER PO SCH (21:13)
[2018-06-24] MEDS: INSULIN GLARGINE 300 UNITS/3 ML INSULN.PEN. SQ SCH (21:16)
[2018-06-24] MEDS ORDERED: ALTEPLASE 2 MG VIAL INT CAT ONE (23:00)
[2018-06-25] MEDS: PIPERACILLIN/TAZOBACTAM 2.25 GM in IV NORMAL SALINE 50ML 50 ML IV SCH ×4 (00:19→17:18)
[2018-06-25] MEDS: ACETAMINOPHEN/CODEINE 300/30MG TABLET PO PRN ×2 (02:45→21:19)
[2018-06-25 03:00] VITALS: BP 99/51
[2018-06-25 05:47] VITALS: BP 119/62
[2018-06-25] MEDS: LEVOTHYROXINE 50 MCG TABLET PO SCH (05:51)
[2018-06-25 07:17] LABS: CALCIUM 8.4 mg/dL (8.5-10.1); CREATININE 1.7 mg/dL (0.7-1.3); GFR 39.8; MAGNESIUM 2.1 mg/dL (1.8-2.4); POTASSIUM 3.7 mmol/L (3.5-5.1)
[2018-06-25 07:20] LABS: HEMATOCRIT 22.2 % (39.0-53.0); HEMOGLOBIN 7.6 g/dL (13.0-17.5); RED BLOOD COUNT 2.52 x10^6/uL (4.30-5.70); RED CELL DISTRIBUTION WIDTH 14.1 % (11.5-14.5); WHITE BLOOD COUNT 5.2 x10^3/uL (4.0-11.0)
[2018-06-25] MEDS: INSULIN LISPRO 300 UNITS/3 ML INSULN.PEN. SQ SCH ×3 (08:00→17:00)
[2018-06-25] MEDS ORDERED: NON FORMULARY ITEM (Dulaglutide (Trulicity) 1.5 MG) SQ SCH (09:00)
[2018-06-25] MEDS: CLOPIDOGREL BISULFATE 75 MG TABLET PO SCH (09:09)
[2018-06-25] MEDS: CHOLECALCIFEROL (VITAMIN D3) 1,000 UNIT TABLET PO SCH (09:09)
[2018-06-25] MEDS: hydroCHLOROthiazide 25 MG TABLET PO SCH (09:09)
[2018-06-25] MEDS: LACTOBACILLUS RHAMNOSUS GG 1 CAPSULE. PO SCH ×2 (09:09→21:20)
[2018-06-25] MEDS: MULTIVITAMIN with MINERAL TABLET. PO SCH (09:09)
[2018-06-25] MEDS: ASPIRIN ENTERIC COATED 81 MG TABLET.DR. PO SCH (09:09)
[2018-06-25] MEDS: amLODIPine BESYLATE 5 MG TABLET PO SCH (09:11)
[2018-06-25] MEDS: METOPROLOL SUCC 24HR ER 25 MG TAB.ER.24H. PO SCH (09:22)
[2018-06-25 10:27] VITALS: BP 118/62
--- NOTE | 2018-06-25 15:50 | CONS ---
DATE OF CONSULTATION: 06/25/2018 REASON FOR CONSULTATION: Heart failure. HISTORY OF PRESENT ILLNESS: The patient is a pleasant 72-year-old man with past medical history as noted below, who presented to [facility] in the setting of what was reported as confusion. He upon arrival to [place] was noted to have anemia and hypoglycemia and this was corrected and the Cardiology team was asked to evaluate him for heart failure. Of note, his history dates back to late May when he was found to have ischemic lower extremity disease and ultimately underwent bilateral lower extremity arterial intervention with subsequent right lower extremity transmetatarsal amputations. He was then discharged to the rehab facility for recovery and he has been there since a week or so ago. His family states that he did have bilateral lower extremity edema upon discharge from [place] and continues to do so today. The patient denies any dyspnea, but he has had some difficulty with ambulation, mostly related to his recent amputation. PAST MEDICAL HISTORY: 1. Hypertension. 2. CVA. 3. CAD, status post remote PCI. 4. Peripheral arterial disease as noted above. 5. Diabetes type 2. 6. Anemia of chronic disease. 7. Chronic kidney disease with baseline creatinine of 2.0. SOCIAL HISTORY: The patient denies any current alcohol, tobacco or illicit drug use. He has 1 son. He is currently residing at a rehab facility. FAMILY HISTORY: Noncontributory. REVIEW OF SYSTEMS: Negative for 10 out of 14 systems reviewed, unless otherwise mentioned above in HPI. ALLERGIES: No known drug allergies. CURRENT CARDIOVASCULAR MEDICATIONS: As follows: 1. Atorvastatin 40 mg daily. 2. Niacin 500 mg daily. 3. Aspirin 81 mg daily. 4. Amlodipine 5 mg daily. 5. Metoprolol XL 25 mg daily. 6. Hydrochlorothiazide 25 mg daily. 7. Plavix 75 mg daily. PHYSICAL EXAMINATION: VITAL SIGNS: Afebrile, 82, 18, 118/62, 95% on room air. GENERAL: He is alert and oriented, in no acute distress. HEAD AND NECK: Unremarkable. No carotid bruits. HEART: Normal heart tones without any obvious murmurs. LUNGS: Clear to auscultation bilaterally. ABDOMEN: Protuberant, obese, nontender, nondistended. LOWER EXTREMITIES: Notable for significant 3+ pitting edema up to the knee. NEUROLOGIC: No focal deficits. MUSCULOSKELETAL: No obvious trauma with diminished radial and nonpalpable pedal pulses. DIAGNOSTIC STUDIES: Hemoglobin 6.9, now increased to 7.6 after 1 unit transfusion and white blood cell count of 5.2. Platelet count is 97 decreased from previous in the 400s. Creatinine 1.7 with a baseline creatinine of 2.0. Chest x-ray without any significant infiltrates, but does have a possible new left lower lobe pleural effusion. IMPRESSION: 1. Acute on chronic, presumed diastolic heart failure in the setting of severe PAD and probable venous insufficiency. 2. Known prior coronary artery disease and multiple other cardiovascular comorbidities as noted above. RECOMMENDATIONS: 1. Would plan for diuresis with addition of Lasix 40 mg IV push. 2. Continue aspirin and Plavix for now with close monitoring of his platelet count and hemoglobin and may ultimately need to stop them if he has any further deterioration in his hemoglobin. 3. Close monitoring of renal function. 4. Evaluation by the primary service for any occult this infectious process given his hypoglycemia and recent interventions. We will obtain records from [facility] for his previous evaluation at the time of his CVA in 02/2018 to determine if there was any prior cardiac evaluation. Thank you for this consultation. ELVIRA HAJI MD DR: ANTONIO/shahla JOB#: [id number] / [id number]
[2018-06-25 16:02] VITALS: BP 120/69
[2018-06-25] MEDS ORDERED: FUROSEMIDE 40 MG/4 ML VIAL IVP ONE (16:10)
[2018-06-25 19:57] VITALS: BP 114/66
[2018-06-25] MEDS: NIACIN ER 500 MG TABLET.ER PO SCH (21:19)
[2018-06-25] MEDS: TAMSULOSIN 0.4 MG CAP.ER.24H. PO SCH (21:20)
[2018-06-25] MEDS: ATORVASTATIN CALCIUM 20 MG TABLET PO SCH (21:20)
[2018-06-25] MEDS: INSULIN GLARGINE 300 UNITS/3 ML INSULN.PEN. SQ SCH (21:20)
--- NOTE | 2018-06-25 22:27 | PDOC ---
PROGRESS NOTES Diagnosis Problem Problems Medical Problems: (1) Anemia Status: Acute DRAGON ASSESSMENT AND PLAN: Acute blood loss anemia likely to to post surgical reasons - - - we will check hemoglobin tomorrow, - we will transfuse for hemoglobin less than 7 Presumed acute on chronic heart failure -cardiology consult -Diuresis per cardiology -Labs in the morning -Echocardiogram Diabetes type 2 -with hypoglycemic episode -holding Lantus for now -sliding scale insulin Diarrhea -NOT C DIFF - improving -we can use Imodium if needed Osteomyelitis -- undergoing treatment, -continuous zosyn for now Hypertension - - continue home medications Hypothyroidism - - continue home medications SUBJECTIVE: the patient is feeling better No fevers or chills Leg swelling continues OBJECTIVE: Gen.: Alert, pleasant, no apparent distress HEENT: Normocephalic atraumatic, PERRLA EOMI, no scleral icterus, oral mucosa pink and moist Neck: Supple, no lymphadenopathy, nontender Cardiovascular: Normal S1 and S2 no murmurs Pulmonary: Lungs are clear bilaterally with good air movement no respiratory distress Abdomen: Soft nontender non-distended, bowel sounds present no masses Extremities: No clubbing, cyanosis, +2 pitting edema bilaterally on his lower extremities Neuro: Alert and oriented 3, cranial nerves II through XII grossly intact, no lateralizing neuro deficits Skin: Right toes amputated, incision clear dry and intact with sutures, non- tender Assessment Problems Medical Problems: (1) Anemia Status: Acute Objective Vital Signs Date Time Temp Pulse Resp B/P (MAP) Pulse Ox O2 Delivery O2 Flow Rate FiO2 06/25/18 22:17 16 Room Air 06/25/18 21:19 98 06/25/18 19:57 98.0 83 114/66 (82) Intake and Output 06/25/18 07:00 Intake Total 1468.67 ml Output Total 2 ml Balance 1466.67 ml Intake Oral 1280 ml IV Total 188.67 ml Output Urine Total 2 ml # Voids 4 # Bowel Movements 1 Review of Relevant I have reviewed the following items cathy (where applicable) has been applied. Labs Laboratory Tests Test 06/23/18 22:52 06/23/18 23:15 06/24/18 05:30 06/24/18 07:27 Glucose (Fingerstick) 105 mg/dL (70-99) 48 mg/dL (70-99) Nasal Screen MRSA (PCR) Negative (Negative) White Blood Count 4.3 x10^3/uL (4.0-11.0) Red Blood Count 2.58 x10^6/uL (4.30-5.70) Hemoglobin 7.7 g/dL (13.0-17.5) Hematocrit 22.7 % (39.0-53.0) Mean Corpuscular Volume 88 fL (79-100) Mean Corpuscular Hemoglobin 30 pg (25-35) Mean Corpuscular Hemoglobin Concent 34 g/dL (31-37) Red Cell Distribution Width 13.9 % (11.5-14.5) Platelet Count 92 x10^3/uL (140-400) Neutrophils (%) (Auto) 62 % (31-73) Lymphocytes (%) (Auto) 20 % (24-48) Monocytes (%) (Auto) 11 % (0-9) Eosinophils (%) (Auto) 5 % (0-3) Basophils (%) (Auto) 1 % (0-3) Neutrophils # (Auto) 2.7 x10^3uL (1.8-7.7) Lymphocytes # (Auto) 0.9 x10^3/uL (1.0-4.8) Monocytes # (Auto) 0.5 x10^3/uL (0.0-1.1) Eosinophils # (Auto) 0.2 x10^3/uL (0.0-0.7) Basophils # (Auto) 0.0 x10^3/uL (0.0-0.2) Sodium Level 143 mmol/L (136-145) Potassium Level 3.8 mmol/L (3.5-5.1) Chloride Level 109 mmol/L (98-107) Carbon Dioxide Level 27 mmol/L (21-32) Anion Gap 7 (6-14) Blood Urea Nitrogen 17 mg/dL (8-26) Creatinine 1.8 mg/dL (0.7-1.3) Estimated GFR (Cockcroft-Gault) 37.3 Glucose Level 90 mg/dL (70-99) Calcium Level 8.5 mg/dL (8.5-10.1) Magnesium Level 1.5 mg/dL (1.8-2.4) VL-[id number]-[id number]-Type Natriuretic Peptide 3541 pg/mL (0-124) Test 06/24/18 11:17 06/24/18 11:45 06/24/18 16:15 06/24/18 20:39 Glucose (Fingerstick) 83 mg/dL (70-99) 74 mg/dL (70-99) 164 mg/dL (70-99) Stool Occult Blood Negative (NEG) Clostridium difficile Toxin B Gene Negative (Negative) Test 06/25/18 02:42 06/25/18 02:55 06/25/18 04:44 06/25/18 05:22 Glucose (Fingerstick) 32 mg/dL (70-99) 142 mg/dL (70-99) 60 mg/dL (70-99) 78 mg/dL (70-99) Test 06/25/18 06:16 06/25/18 06:25 06/25/18 07:35 06/25/18 12:19 Glucose (Fingerstick) 86 mg/dL (70-99) 91 mg/dL (70-99) 96 mg/dL (70-99) White Blood Count 5.2 x10^3/uL (4.0-11.0) Red Blood Count 2.52 x10^6/uL (4.30-5.70) Hemoglobin 7.6 g/dL (13.0-17.5) Hematocrit 22.2 % (39.0-53.0) Mean Corpuscular Volume 88 fL (79-100) Mean Corpuscular Hemoglobin 30 pg (25-35) Mean Corpuscular Hemoglobin Concent 34 g/dL (31-37) Red Cell Distribution Width 14.1 % (11.5-14.5) Platelet Count 97 x10^3/uL (140-400) Sodium Level 141 mmol/L (136-145) Potassium Level 3.7 mmol/L (3.5-5.1) Chloride Level 105 mmol/L (98-107) Carbon Dioxide Level 26 mmol/L (21-32) Anion Gap 10 (6-14) Blood Urea Nitrogen 18 mg/dL (8-26) Creatinine 1.7 mg/dL (0.7-1.3) Estimated GFR (Cockcroft-Gault) 39.8 Glucose Level 128 mg/dL (70-99) Calcium Level 8.4 mg/dL (8.5-10.1) Magnesium Level 2.1 mg/dL (1.8-2.4) Test 06/25/18 17:07 06/25/18 20:16 Glucose (Fingerstick) 81 mg/dL (70-99) 82 mg/dL (70-99) Medications Current Medications Acetaminophen (Tylenol) 650 mg PRN Q4HRS PRN PO FEVER; Start 06/23/18 at 21:15 ; Stop 06/24/18 at 21:14; Status DC Magnesium Oxide (Magnesium Oxide) 400 mg 1X ONCE PO Last administered on at 21:26; Start 06/23/18 at 21:30; Stop 06/23/18 at 21:31; Status DC Piperacillin Sod/ Tazobactam Sod (Zosyn Per Pharmacy) 1 each PRN DAILY PRN MC SEE COMMENTS; Start 06/23/18 at 23:45 Piperacillin Sod/ Tazobactam Sod 2.25 gm/Sodium Chloride 50 ml @ 100 mls/hr Q6HRS IV Last administered on 06/25/18at 17:18; Start 06/24/18 at 00:00 Lactobacillus Rhamnosus (Culturelle) 1 cap BID PO Last administered on at 21:20; Start 06/24/18 at 21:00 Clopidogrel Bisulfate (Plavix) 75 mg DAILY PO Last administered on 06/25/18at 09 :09; Start 06/24/18 at 12:00 Hydrochlorothiazide (Hydrodiuril) 25 mg DAILY PO Last administered on at 09:09; Start 06/24/18 at 12:00 Metoprolol Succinate (Toprol Xl) 25 mg DAILY PO Last administered on 06/25/18at 09:22; Start 06/24/18 at 12:00 Niacin (Slo-Niacin) 500 mg QHS PO Last administered on 06/25/18at 21:19; Start 06/24/18 at 21:00 Piperacillin Sod/ Tazobactam Sod (Zosyn) 2.25 gm Q6HRS IV ; Start 06/24/18 at 12 :00; Status UNV Tamsulosin HCl (Flomax) 0.4 mg HS PO Last administered on 06/25/18at 21:20; Start 06/24/18 at 21:00 Acetaminophen/ Codeine Phosphate (Tylenol #3) 1 tab Q6HRS PRN PO PAIN Last administered on 06/25/18 21:19; Start 06/24/18 at 11:30 Amlodipine Besylate (Norvasc) 5 mg DAILY PO Last administered on 06/25/18 09: 11; Start 06/24/18 at 12:00 Aspirin (Aspirin Enteric Coated) 81 mg DAILYWBKFT PO Last administered on 09:09; Start 06/24/18 at 12:00 Atorvastatin Calcium (Lipitor) 40 mg QHS PO Last administered on 06/25/18 21: 20; Start 06/24/18 at 21:00 Vitamin D (Vitamin D3) 5,000 unit DAILY PO Last administered on 06/25/18 09:09 ; Start 06/24/18 at 12:00 Non-Formulary Medication (Dulaglutide (Trulicity)) 1.5 mg DAILY SQ ; Start 06/25 at 09:00; Stop 06/25/18 at 09:00; Status DC Glimepiride (Amaryl) 1 mg BID PO Last administered on 06/24/18 12:25; Start at 12:00; Status Future Hold Insulin Glargine (Lantus) 40 units HS SQ Last administered on 06/24/18 21:16; Start 06/24/18 at 21:00 Non-Formulary Medication (Lactobacillus Acidophilus (Acidophilus)) 1 each BID PO ; Start 06/24/18 at 21:00; Status UNV Levothyroxine Sodium (Synthroid) 50 mcg DAILY06 PO Last administered on 05:51; Start 06/24/18 at 12:00 Multivitamins/ Calcium (Thera-M Plus) 1 tab DAILY PO Last administered on 09:09; Start 06/24/18 at 12:00 Insulin Human Lispro (HumaLOG) 0-5 UNITS TIDWMEALS SQ ; Start 06/24/18 at 12:00 Dextrose 12.5 gm PRN Q15MIN PRN IV SEE COMMENTS Last administered on 06/25/18at 02:47; Start 06/24/18 at 11:45 Magnesium Sulfate 50 ml @ 25 mls/hr 1X ONCE IV Last administered on 06/24/18 13:14; Start 06/24/18 at 12:45; Stop 06/24/18 at 14:44; Status DC Furosemide (Lasix) 40 mg 1X ONCE IVP Last administered on 06/24/18at 16:42; Start 06/24/18 at 17:00; Stop 06/24/18 at 17:01; Status DC Alteplase, Recombinant (Cathflo) 2 mg 1X ONCE INT CAT Last administered on at 01:27; Start 06/24/18 at 23:00; Stop 06/24/18 at 23:01; Status DC Furosemide (Lasix) 40 mg 1X ONCE IVP Last administered on 06/25/18at 16:18; Start 06/25/18 at 16:10; Stop 06/25/18 at 16:11; Status DC Active Scripts Active Reported Zosyn 2.25 Gram Vial (Piperacillin Sodium/Tazobactam) 2.25 Gm Vial 2.25 Gm IV Q6HRS Trulicity (Dulaglutide) 1.5 Mg/0.5 Ml Pen.injctr 1.5 Mg SQ DAILY Toujeo Solostar (Insulin Glargine,Hum.rec.anlog) 300 Unit/1 Ml Insuln.pen 40 Unit SQ HS Flomax (Tamsulosin Hcl) 0.4 Mg Cap.er.24h 1 Cap PO HS Niaspan (Niacin) 500 Mg Tab.er.24h 1 Tab PO QHS Multivitamins (Multivitamin) 1 Each Tablet 1 Tab PO DAILY Metoprolol Succinate ( Xl ) (Metoprolol Succinate) 25 Mg Tab.er.24h 1 Tab PO DAILY Levothyroxine Sodium 50 Mcg Tablet 1 Tab PO DAILY06 Acidophilus (Lactobacillus Acidophilus) 1 Each Capsule 1 Each PO BID Hydrochlorothiazide Tablet (Hydrochlorothiazide) 25 Mg Tablet 25 Mg PO DAILY Glimepiride 1 Mg Tablet 1 Tab PO BID Clopidogrel (Clopidogrel Bisulfate) 75 Mg Tablet 1 Tab PO DAILY Vitamin D (Cholecalciferol (Vitamin D3)) 2,000 Unit Capsule 5,000 Unit PO DAILY Atorvastatin Calcium 40 Mg Tablet 1 Tab PO QHS Aspirin 81 Mg Tab.chew 81 Mg PO DAILY Amlodipine Besylate 5 Mg Tablet 1 Tab PO DAILY Tylenol With Codeine #3 Tablet (Acetaminophen With Codeine) 1 Each Tablet 1 Tab PO Q6HRS PRN Vitals/I & O Vital Sign - Last 24 Hours 06/24/18 06/25/18 06/25/18 06/25/18 22:45 02:45 03:00 03:45 Temp 97.6 Pulse 76 74 Resp 20 18 16 B/P (MAP) 116/70 (85) 99/51 (67) Pulse Ox 99 93 93 O2 Delivery Room Air Room Air 06/25/18 06/25/18 06/25/18 06/25/18 05:47 09:00 09:11 09:22 Temp 97.8 Pulse 74 74 74 Resp 18 B/P (MAP) 119/62 (81) 119/62 119/62 Pulse Ox 97 O2 Delivery Room Air Room Air 06/25/18 06/25/18 06/25/18 06/25/18 10:27 16:02 19:57 21:19 Temp 97.5 97.8 98.0 Pulse 82 85 83 Resp 18 20 20 20 B/P (MAP) 118/62 (80) 120/69 (86) 114/66 (82) Pulse Ox 95 94 98 98 O2 Delivery Room Air Room Air Room Air Room Air 06/25/18 22:17 Resp 16 O2 Delivery Room Air Intake and Output 06/24/18 06/24/18 06/25/18 15:00 23:00 07:00 Intake Total 410 ml 480 ml 578.67 ml Output Total 2 ml Balance 410 ml 480 ml 576.67 ml EMMA CRUZ MD Jun 25, 2018 22:27
[2018-06-25 23:16] VITALS: BP 145/65
[2018-06-26] MEDS: PIPERACILLIN/TAZOBACTAM 2.25 GM in IV NORMAL SALINE 50ML 50 ML IV SCH ×4 (00:47→18:26)
[2018-06-26 05:01] VITALS: BP 116/63
[2018-06-26] MEDS: LEVOTHYROXINE 50 MCG TABLET PO SCH (05:35)
[2018-06-26 07:31] LABS: HEMATOCRIT 21.8 % (39.0-53.0); HEMOGLOBIN 7.3 g/dL (13.0-17.5); RED BLOOD COUNT 2.46 x10^6/uL (4.30-5.70); RED CELL DISTRIBUTION WIDTH 14.4 % (11.5-14.5); WHITE BLOOD COUNT 4.2 x10^3/uL (4.0-11.0)
[2018-06-26 07:46] LABS: CALCIUM 8.3 mg/dL (8.5-10.1); CREATININE 1.9 mg/dL (0.7-1.3); MAGNESIUM 1.9 mg/dL (1.8-2.4); POTASSIUM 3.9 mmol/L (3.5-5.1)
[2018-06-26] MEDS: INSULIN LISPRO 300 UNITS/3 ML INSULN.PEN. SQ SCH ×3 (08:00→17:19)
[2018-06-26] MEDS: ASPIRIN ENTERIC COATED 81 MG TABLET.DR. PO SCH (08:54)
[2018-06-26] MEDS: MULTIVITAMIN with MINERAL TABLET. PO SCH (08:54)
[2018-06-26] MEDS: LACTOBACILLUS RHAMNOSUS GG 1 CAPSULE. PO SCH ×2 (08:54→20:47)
[2018-06-26] MEDS: CHOLECALCIFEROL (VITAMIN D3) 1,000 UNIT TABLET PO SCH (08:55)
[2018-06-26] MEDS: amLODIPine BESYLATE 5 MG TABLET PO SCH (08:55)
[2018-06-26] MEDS: CLOPIDOGREL BISULFATE 75 MG TABLET PO SCH (08:55)
[2018-06-26] MEDS: METOPROLOL SUCC 24HR ER 25 MG TAB.ER.24H. PO SCH (08:56)
--- NOTE | 2018-06-26 09:19 | PDOC ---
ROMAINE PEREZ COMPUTER EQUIPMENT REPAIRER 06/26/18 0919: PROGRESS NOTES Diagnosis Problem Problems Medical Problems: (1) Anemia Status: Acute Assessment Problems Medical Problems: (1) Anemia Status: Acute 1. Acute on chronic diastolic heart failure - clinically compensated. 2. Known prior coronary artery disease - echo completed as below at . No other documentations of CV testing 3. recent cryptogenic stroke - event monitoring ordered but not completed. consider loop implantation as outpatient. 4. Anemia - Hgb/Hct/Plt normal on 06/07/18, down to ~7.5 on 06/15/18, 6.9 on admit to [facility] s/p PRBCs yesterday. Hgb from 6.9 -> 7.3. Hemoccult neg x 1. mgmt per PCP. Consider CT abd. 5. Renal insufficiency - Cr appears to be baseline ~1.5. Monitor closely. Echo 03/06/18 Interpretation Summary The left ventricle is normal in size and function, estimated ejection fraction is 55%. There are no regional wall motion abnormalities present though limited visualization of endocardium. The right ventricle is normal in size and function. The left atrium is normal in size, right atrium poorly seen. Agitated saline contrast injection with and without Valsalva demonstrates no evidence of right to left interatrial shunt. Valve structures appear normal, poor visualization. Inadequate tricuspid regurgitation signal, unable to accurately estimate PA systolic pressure with this study. No gross mass, thrombus or vegetation is identified. Subjective no dyspnea, no chest pain, legs still swollen, worried about anemia. no lightheadedness or palpitations. Objective Vital Signs Date Time Temp Pulse Resp B/P (MAP) Pulse Ox O2 Delivery O2 Flow Rate FiO2 06/26/18 08:56 89 116/63 06/26/18 05:01 98.3 24 92 Room Air Intake and Output 06/26/18 07:00 Intake Total 2200 ml Balance 2200 ml Intake Oral 2000 ml IV Total 200 ml # Voids 10 # Bowel Movements 1 Physical Exam gen: awake, alert, no acute distress CV: reg rate and rhythm, no gallops, clicks or rubs Lungs: CTA abd: +bowel sounds ext: continued edema skin: multiple areas of ecchymosis Review of Relevant I have reviewed the following items cathy (where applicable) has been applied. Labs Laboratory Tests Test 06/24/18 11:17 06/24/18 11:45 3/16/19 16:15 06/24/18 20:39 Glucose (Fingerstick) 83 mg/dL (70-99) 74 mg/dL (70-99) 164 mg/dL (70-99) Stool Occult Blood Negative (NEG) Clostridium difficile Toxin B Gene Negative (Negative) Test 06/25/18 02:42 06/25/18 02:55 06/25/18 04:44 06/25/18 05:22 Glucose (Fingerstick) 32 mg/dL (70-99) 142 mg/dL (70-99) 60 mg/dL (70-99) 78 mg/dL (70-99) Test 06/25/18 06:16 06/25/18 06:25 06/25/18 07:35 06/25/18 12:19 Glucose (Fingerstick) 86 mg/dL (70-99) 91 mg/dL (70-99) 96 mg/dL (70-99) White Blood Count 5.2 x10^3/uL (4.0-11.0) Red Blood Count 2.52 x10^6/uL (4.30-5.70) Hemoglobin 7.6 g/dL (13.0-17.5) Hematocrit 22.2 % (39.0-53.0) Mean Corpuscular Volume 88 fL (79-100) Mean Corpuscular Hemoglobin 30 pg (25-35) Mean Corpuscular Hemoglobin Concent 34 g/dL (31-37) Red Cell Distribution Width 14.1 % (11.5-14.5) Platelet Count 97 x10^3/uL (140-400) Sodium Level 141 mmol/L (136-145) Potassium Level 3.7 mmol/L (3.5-5.1) Chloride Level 105 mmol/L (98-107) Carbon Dioxide Level 26 mmol/L (21-32) Anion Gap 10 (6-14) Blood Urea Nitrogen 18 mg/dL (8-26) Creatinine 1.7 mg/dL (0.7-1.3) Estimated GFR (Cockcroft-Gault) 39.8 Glucose Level 128 mg/dL (70-99) Calcium Level 8.4 mg/dL (8.5-10.1) Magnesium Level 2.1 mg/dL (1.8-2.4) Test 06/25/18 17:07 06/25/18 20:16 06/25/18 22:37 06/26/18 00:58 Glucose (Fingerstick) 81 mg/dL (70-99) 82 mg/dL (70-99) 98 mg/dL (70-99) 122 mg/dL (70-99) Test 06/26/18 07:20 06/26/18 07:33 White Blood Count 4.2 x10^3/uL (4.0-11.0) Red Blood Count 2.46 x10^6/uL (4.30-5.70) Hemoglobin 7.3 g/dL (13.0-17.5) Hematocrit 21.8 % (39.0-53.0) Mean Corpuscular Volume 88 fL (79-100) Mean Corpuscular Hemoglobin 30 pg (25-35) Mean Corpuscular Hemoglobin Concent 34 g/dL (31-37) Red Cell Distribution Width 14.4 % (11.5-14.5) Platelet Count 100 x10^3/uL (140-400) Sodium Level 145 mmol/L (136-145) Potassium Level 3.9 mmol/L (3.5-5.1) Chloride Level 107 mmol/L (98-107) Carbon Dioxide Level 29 mmol/L (21-32) Anion Gap 9 (6-14) Blood Urea Nitrogen 21 mg/dL (8-26) Creatinine 1.9 mg/dL (0.7-1.3) Estimated GFR (Cockcroft-Gault) 35.0 Glucose Level 79 mg/dL (70-99) Calcium Level 8.3 mg/dL (8.5-10.1) Magnesium Level 1.9 mg/dL (1.8-2.4) Glucose (Fingerstick) 72 mg/dL (70-99) Medications Current Medications Acetaminophen (Tylenol) 650 mg PRN Q4HRS PRN PO FEVER; Start 06/23/18 at 21:15 ; Stop 06/24/18 at 21:14; Status DC Magnesium Oxide (Magnesium Oxide) 400 mg 1X ONCE PO Last administered on at 21:26; Start 06/23/18 at 21:30; Stop 06/23/18 at 21:31; Status DC Piperacillin Sod/ Tazobactam Sod (Zosyn Per Pharmacy) 1 each PRN DAILY PRN [facility] SEE COMMENTS; Start 06/23/18 at 23:45 Piperacillin Sod/ Tazobactam Sod 2.25 gm/Sodium Chloride 50 ml @ 100 mls/hr Q6HRS IV Last administered on 06/26/18 05:36; Start 06/24/18 at 00:00 Lactobacillus Rhamnosus (Culturelle) 1 cap BID PO Last administered on 08:54; Start 06/24/18 at 21:00 Clopidogrel Bisulfate (Plavix) 75 mg DAILY PO Last administered on 06/26/18 08 :55; Start 06/24/18 at 12:00 Hydrochlorothiazide (Hydrodiuril) 25 mg DAILY PO Last administered on 09:09; Start 06/24/18 at 12:00; Status Future Hold Metoprolol Succinate (Toprol Xl) 25 mg DAILY PO Last administered on 06/26/18 08:56; Start 06/24/18 at 12:00 Niacin (Slo-Niacin) 500 mg QHS PO Last administered on 06/25/18 21:19; Start 06/24/18 at 21:00 Piperacillin Sod/ Tazobactam Sod (Zosyn) 2.25 gm Q6HRS IV ; Start 06/24/18 at 12 :00; Status UNV Tamsulosin HCl (Flomax) 0.4 mg HS PO Last administered on 06/25/18 21:20; Start 06/24/18 at 21:00 Acetaminophen/ Codeine Phosphate (Tylenol #3) 1 tab Q6HRS PRN PO PAIN Last administered on 06/25/18 21:19; Start 06/24/18 at 11:30 Amlodipine Besylate (Norvasc) 5 mg DAILY PO Last administered on 06/26/18 08: 55; Start 06/24/18 at 12:00 Aspirin (Aspirin Enteric Coated) 81 mg DAILYWBKFT PO Last administered on 08:54; Start 06/24/18 at 12:00 Atorvastatin Calcium (Lipitor) 40 mg QHS PO Last administered on 06/25/18 21: 20; Start 06/24/18 at 21:00 Vitamin D (Vitamin D3) 5,000 unit DAILY PO Last administered on 06/26/18at 08:55 ; Start 06/24/18 at 12:00 Non-Formulary Medication (Dulaglutide (Trulicity)) 1.5 mg DAILY SQ ; Start 06/25 at 09:00; Stop 06/25/18 at 09:00; Status DC Glimepiride (Amaryl) 1 mg BID PO Last administered on 06/24/18at 12:25; Start at 12:00; Status Future Hold Insulin Glargine (Lantus) 40 units HS SQ Last administered on 06/24/18at 21:16; Start 06/24/18 at 21:00; Stop 06/25/18 at 22:53; Status DC Non-Formulary Medication (Lactobacillus Acidophilus (Acidophilus)) 1 each BID PO ; Start 06/24/18 at 21:00; Status UNV Levothyroxine Sodium (Synthroid) 50 mcg DAILY06 PO Last administered on at 05:35; Start 06/24/18 at 12:00 Multivitamins/ Calcium (Thera-M Plus) 1 tab DAILY PO Last administered on at 08:54; Start 06/24/18 at 12:00 Insulin Human Lispro (HumaLOG) 0-5 UNITS TIDWMEALS SQ ; Start 06/24/18 at 12:00 Dextrose 12.5 gm PRN Q15MIN PRN IV SEE COMMENTS Last administered on 06/25/18at 02:47; Start 06/24/18 at 11:45 Magnesium Sulfate 50 ml @ 25 mls/hr 1X ONCE IV Last administered on 06/24/18at 13:14; Start 06/24/18 at 12:45; Stop 06/24/18 at 14:44; Status DC Furosemide (Lasix) 40 mg 1X ONCE IVP Last administered on 06/24/18at 16:42; Start 06/24/18 at 17:00; Stop 06/24/18 at 17:01; Status DC Alteplase, Recombinant (Cathflo) 2 mg 1X ONCE INT CAT Last administered on at 01:27; Start 06/24/18 at 23:00; Stop 06/24/18 at 23:01; Status DC Furosemide (Lasix) 40 mg 1X ONCE IVP Last administered on 06/25/18at 16:18; Start 06/25/18 at 16:10; Stop 06/25/18 at 16:11; Status DC Insulin Glargine (Lantus) 15 units HS SQ ; Start 06/26/18 at 21:00 Ferrous Sulfate (Feosol) 325 mg DAILYWBKFT PO ; Start 06/27/18 at 08:00; Status UNV Active Scripts Active Reported Zosyn 2.25 Gram Vial (Piperacillin Sodium/Tazobactam) 2.25 Gm Vial 2.25 Gm IV Q6HRS Trulicity (Dulaglutide) 1.5 Mg/0.5 Ml Pen.injctr 1.5 Mg SQ DAILY Toujeo Solostar (Insulin Glargine,Hum.rec.anlog) 300 Unit/1 Ml Insuln.pen 40 Unit SQ HS Flomax (Tamsulosin Hcl) 0.4 Mg Cap.er.24h 1 Cap PO HS Niaspan (Niacin) 500 Mg Tab.er.24h 1 Tab PO QHS Multivitamins (Multivitamin) 1 Each Tablet 1 Tab PO DAILY Metoprolol Succinate ( Xl ) (Metoprolol Succinate) 25 Mg Tab.er.24h 1 Tab PO DAILY Levothyroxine Sodium 50 Mcg Tablet 1 Tab PO DAILY06 Acidophilus (Lactobacillus Acidophilus) 1 Each Capsule 1 Each PO BID Hydrochlorothiazide Tablet (Hydrochlorothiazide) 25 Mg Tablet 25 Mg PO DAILY Glimepiride 1 Mg Tablet 1 Tab PO BID Clopidogrel (Clopidogrel Bisulfate) 75 Mg Tablet 1 Tab PO DAILY Vitamin D (Cholecalciferol (Vitamin D3)) 2,000 Unit Capsule 5,000 Unit PO DAILY Atorvastatin Calcium 40 Mg Tablet 1 Tab PO QHS Aspirin 81 Mg Tab.chew 81 Mg PO DAILY Amlodipine Besylate 5 Mg Tablet 1 Tab PO DAILY Tylenol With Codeine #3 Tablet (Acetaminophen With Codeine) 1 Each Tablet 1 Tab PO Q6HRS PRN Vitals/I & O Vital Sign - Last 24 Hours 06/25/18 06/25/18 06/25/18 06/25/18 09:22 10:27 16:02 19:57 Temp 97.5 97.8 98.0 Pulse 74 82 85 83 Resp 18 20 20 B/P (MAP) 119/62 118/62 (80) 120/69 (86) 114/66 (82) Pulse Ox 95 94 98 O2 Delivery Room Air Room Air Room Air 06/25/18 06/25/18 06/25/18 06/25/18 20:25 21:19 22:17 23:16 Temp 98.0 Pulse 105 Resp 20 16 24 B/P (MAP) 145/65 (91) Pulse Ox 98 96 O2 Delivery Room Air Room Air Room Air Room Air 06/26/18 06/26/18 06/26/18 05:01 08:55 08:56 Temp 98.3 Pulse 89 89 89 Resp 24 B/P (MAP) 116/63 (80) 116/63 116/63 Pulse Ox 92 O2 Delivery Room Air Intake and Output 06/25/18 06/25/18 06/26/18 15:00 23:00 07:00 Intake Total 990 ml 800 ml 410 ml Balance 990 ml 800 ml 410 ml ELVIRA HAJI MD 06/26/18 5005: PROGRESS NOTES Review of Relevant Pt. seen and examined. Agree with above MALE MODEL note with following comments: Patient has severe LE edema, 3+. No significant improvement clinically He has worsening renal function. He is critically ill with severe anemia, diastolic HF and CKD. Will need to consider possible transfer to [place] [facility] Will stop Plavix. Thanks ROMAINE PEREZ APRN Jun 26, 2018 09:19 ELVIRA HAJI MD Jun 26, 2018 22:18
[2018-06-26] MEDS: FERROUS SULFATE 325 MG TABLET. PO SCH (10:56)
[2018-06-26] MEDS ORDERED: INSU100I11 SQ (13:46)
[2018-06-26] MEDS ORDERED: FERR325T72 PO (13:46)
[2018-06-26 15:12] VITALS: BP 108/66
[2018-06-26] MEDS: FUROSEMIDE 40 MG/4 ML VIAL IVP SCH (16:18)
[2018-06-26 18:57] VITALS: BP 106/68
[2018-06-26] MEDS: NIACIN ER 500 MG TABLET.ER PO SCH (20:47)
[2018-06-26] MEDS: TAMSULOSIN 0.4 MG CAP.ER.24H. PO SCH (20:47)
[2018-06-26] MEDS: ATORVASTATIN CALCIUM 20 MG TABLET PO SCH (20:47)
[2018-06-26 20:51] LABS: BACTERIA,URINE 0 /HPF (0-FEW); BILIRUBIN,URINE NEG (NEG); CLARITY,URINE CLEAR; COLOR,URINE YELLOW; GLUCOSE,URINE NEG (NEG); NITRITE,URINE NEG (NEG); RBC,URINE 0 /HPF (0-2); SQUAMOUS EPITHELIAL CELL,UR OCC /LPF; UROBILINOGEN,URINE 0.2 mg/dL (0.2 mg/dL); WBC,URINE 0 /HPF (0-4)
[2018-06-26] MEDS: INSULIN GLARGINE 300 UNITS/3 ML INSULN.PEN. SQ SCH (20:53)
[2018-06-26 22:59] VITALS: BP 135/74
[2018-06-27] VITALS (9 sets, daily range): BP systolic 117–148; BP diastolic 56–72
[2018-06-27] MEDS: PIPERACILLIN/TAZOBACTAM 2.25 GM in IV NORMAL SALINE 50ML 50 ML IV SCH ×4 (00:15→17:22)
[2018-06-27] MEDS: ACETAMINOPHEN/CODEINE 300/30MG TABLET PO PRN ×3 (04:40→21:18)
[2018-06-27] MEDS: LEVOTHYROXINE 50 MCG TABLET PO SCH (05:19)
[2018-06-27 06:41] LABS: BASO # 0.1 x10^3/uL (0.0-0.2); BASO % 1 % (0-3); EOS # 0.3 x10^3/uL (0.0-0.7); EOS % 5 % (0-3); HEMATOCRIT 21.4 % (39.0-53.0); HEMOGLOBIN 7.3 g/dL (13.0-17.5); LYMPH # 1.1 x10^3/uL (1.0-4.8); LYMPH % 19 % (24-48); MEAN CORPUSCULAR HEMOGLOBIN 30 pg (25-35); MEAN CORPUSCULAR HGB CONC 34 g/dL (31-37); MEAN CORPUSCULAR VOLUME 88 fL (79-100); MONO # 0.8 x10^3/uL (0.0-1.1); MONO % 14 % (0-9); NEUT # 3.6 x10^3uL (1.8-7.7); NEUT % 62 % (31-73); PLATELET COUNT 110 x10^3/uL (140-400); RED BLOOD COUNT 2.42 x10^6/uL (4.30-5.70); RED CELL DISTRIBUTION WIDTH 13.9 % (11.5-14.5); WHITE BLOOD COUNT 5.8 x10^3/uL (4.0-11.0)
[2018-06-27 07:04] LABS: CALCIUM 8.6 mg/dL (8.5-10.1); POTASSIUM 3.7 mmol/L (3.5-5.1)
[2018-06-27] MEDS: CHOLECALCIFEROL (VITAMIN D3) 1,000 UNIT TABLET PO SCH (07:56)
[2018-06-27] MEDS: FERROUS SULFATE 325 MG TABLET. PO SCH (07:56)
[2018-06-27] MEDS: ASPIRIN ENTERIC COATED 81 MG TABLET.DR. PO SCH (07:56)
[2018-06-27] MEDS: amLODIPine BESYLATE 5 MG TABLET PO SCH (08:00)
[2018-06-27] MEDS: MULTIVITAMIN with MINERAL TABLET. PO SCH (08:00)
[2018-06-27] MEDS: FUROSEMIDE 40 MG/4 ML VIAL IVP SCH (08:00)
[2018-06-27] MEDS: LACTOBACILLUS RHAMNOSUS GG 1 CAPSULE. PO SCH ×2 (08:00→21:17)
[2018-06-27] MEDS: INSULIN LISPRO 300 UNITS/3 ML INSULN.PEN. SQ SCH ×3 (08:00→17:00)
[2018-06-27] MEDS: METOPROLOL SUCC 24HR ER 25 MG TAB.ER.24H. PO SCH (08:02)
--- NOTE | 2018-06-27 09:13 | PDOC ---
ROMAINE PEREZ CHIEF PHARMACIST 06/27/18 0913: PROGRESS NOTES Diagnosis Problem Problems Medical Problems: (1) Anemia Status: Acute Assessment Problems Medical Problems: (1) Anemia Status: Acute 1. Acute on chronic diastolic heart failure/RHF - clinically compensated CHF but continues to have signs of RHF and significant lower extremity edema unchanged with lasix. 2. Known prior coronary artery disease - echo completed as below at [facility]. No other documentations of CV testing 3. recent cryptogenic stroke - event monitoring ordered but not completed. consider loop implantation as outpatient. 4. Anemia - Hgb remains stable at 7.3.x 2 days. Hemoccult negative x1. Consider CT abd. 5. Renal insufficiency - Cr appears to be baseline ~1.5 - 1.7, up today 2.0 6. protein malnutrition - per PCP 7. PAD s/p recent HOUSE DETECTIVE bilateral lower extremities 8. 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 consider RHC. Subjective denies dyspnea, denies chest pain, reports mild abdominal discomfort on palpation, reports no change in edema Objective Vital Signs Date Time Temp Pulse Resp B/P (MAP) Pulse Ox O2 Delivery O2 Flow Rate FiO2 06/27/18 08:02 81 128/70 06/27/18 06:00 20 Room Air 06/27/18 05:47 98.1 96 Intake and Output 06/27/18 07:00 Intake Total 1181.27 ml Balance 1181.27 ml Intake Oral 840 ml IV Total 341.27 ml # Voids 9 # Bowel Movements 1 Physical Exam gen: sleepy, wakens easily, pale, no acute distress CV: irreg, no gallops, clicks or rubs Lungs: clear abd: soft, mild diffuse tenderness reported on palpation, +bowel sounds ext: +3 pitting edema without obvious improvement Review of Relevant I have reviewed the following items cathy (where applicable) has been applied. Labs Laboratory Tests Test 06/25/18 12:19 06/25/18 17:07 06/25/18 20:16 06/25/18 22:37 Glucose (Fingerstick) 96 mg/dL (70-99) 81 mg/dL (70-99) 82 mg/dL (70-99) 98 mg/dL (70-99) Test 06/26/18 00:58 3/18/19 07:20 06/26/18 07:33 06/26/18 09:44 Glucose (Fingerstick) 122 mg/dL (70-99) 72 mg/dL (70-99) White Blood Count 4.2 x10^3/uL (4.0-11.0) Red Blood Count 2.46 x10^6/uL (4.30-5.70) Hemoglobin 7.3 g/dL (13.0-17.5) Hematocrit 21.8 % (39.0-53.0) Mean Corpuscular Volume 88 fL (79-100) Mean Corpuscular Hemoglobin 30 pg (25-35) Mean Corpuscular Hemoglobin Concent 34 g/dL (31-37) Red Cell Distribution Width 14.4 % (11.5-14.5) Platelet Count 100 x10^3/uL (140-400) Sodium Level 145 mmol/L (136-145) Potassium Level 3.9 mmol/L (3.5-5.1) Chloride Level 107 mmol/L (98-107) Carbon Dioxide Level 29 mmol/L (21-32) Anion Gap 9 (6-14) Blood Urea Nitrogen 21 mg/dL (8-26) Creatinine 1.9 mg/dL (0.7-1.3) Estimated GFR (Cockcroft-Gault) 35.0 Glucose Level 79 mg/dL (70-99) Calcium Level 8.3 mg/dL (8.5-10.1) Magnesium Level 1.9 mg/dL (1.8-2.4) Iron Level 96 ug/dL (65-175) Total Iron Binding Capacity 156 ug/dL (250-450) Iron Saturation 62 % (15-34) Lactic Acid Level 1.7 mmol/L (0.4-2.0) Test 06/26/18 11:52 06/26/18 16:47 06/26/18 20:02 06/26/18 20:31 Glucose (Fingerstick) 121 mg/dL (70-99) 156 mg/dL (70-99) 192 mg/dL (70-99) Urine Collection Type Unknown Urine Color Yellow Urine Clarity Clear Urine pH 5.0 Urine Specific [place] 1.010 Urine Protein Neg (NEG-TRACE) Urine Glucose (UA) Neg mg/dL (NEG) Urine Ketones (Stick) Neg mg/dL (NEG) Urine Blood Neg (NEG) Urine Nitrite Neg (NEG) Urine Bilirubin Neg (NEG) Urine Urobilinogen Dipstick 0.2 mg/dL (0.2 mg/dL) Urine Leukocyte Esterase Neg (NEG) Urine RBC 0 /HPF (0-2) Urine WBC 0 /HPF (0-4) Urine Squamous Epithelial Cells Occ /LPF Urine Bacteria 0 /HPF (0-FEW) Test 06/26/18 22:51 06/27/18 06:30 06/27/18 07:26 Glucose (Fingerstick) 154 mg/dL (70-99) 62 mg/dL (70-99) White Blood Count 5.8 x10^3/uL (4.0-11.0) Red Blood Count 2.42 x10^6/uL (4.30-5.70) Hemoglobin 7.3 g/dL (13.0-17.5) Hematocrit 21.4 % (39.0-53.0) Mean Corpuscular Volume 88 fL (79-100) Mean Corpuscular Hemoglobin 30 pg (25-35) Mean Corpuscular Hemoglobin Concent 34 g/dL (31-37) Red Cell Distribution Width 13.9 % (11.5-14.5) Platelet Count 110 x10^3/uL (140-400) Neutrophils (%) (Auto) 62 % (31-73) Lymphocytes (%) (Auto) 19 % (24-48) Monocytes (%) (Auto) 14 % (0-9) Eosinophils (%) (Auto) 5 % (0-3) Basophils (%) (Auto) 1 % (0-3) Neutrophils # (Auto) 3.6 x10^3uL (1.8-7.7) Lymphocytes # (Auto) 1.1 x10^3/uL (1.0-4.8) Monocytes # (Auto) 0.8 x10^3/uL (0.0-1.1) Eosinophils # (Auto) 0.3 x10^3/uL (0.0-0.7) Basophils # (Auto) 0.1 x10^3/uL (0.0-0.2) Sodium Level 144 mmol/L (136-145) Potassium Level 3.7 mmol/L (3.5-5.1) Chloride Level 107 mmol/L (98-107) Carbon Dioxide Level 27 mmol/L (21-32) Anion Gap 10 (6-14) Blood Urea Nitrogen 23 mg/dL (8-26) Creatinine 2.0 mg/dL (0.7-1.3) Estimated GFR (Cockcroft-Gault) 33.0 Glucose Level 75 mg/dL (70-99) Calcium Level 8.6 mg/dL (8.5-10.1) [id number]-Type Natriuretic Peptide 2826 pg/mL (0-124) Medications Current Medications Acetaminophen (Tylenol) 650 mg PRN Q4HRS PRN PO FEVER; Start 06/23/18 at 21:15 ; Stop 06/24/18 at 21:14; Status DC Magnesium Oxide (Magnesium Oxide) 400 mg 1X ONCE PO Last administered on at 21:26; Start 06/23/18 at 21:30; Stop 06/23/18 at 21:31; Status DC Piperacillin Sod/ Tazobactam Sod (Zosyn Per Pharmacy) 1 each PRN DAILY PRN [facility] SEE COMMENTS; Start 06/23/18 at 23:45 Piperacillin Sod/ Tazobactam Sod 2.25 gm/Sodium Chloride 50 ml @ 100 mls/hr Q6HRS IV Last administered on 06/27/18at 05:20; Start 06/24/18 at 00:00 Lactobacillus Rhamnosus (Culturelle) 1 cap BID PO Last administered on at 08:00; Start 06/24/18 at 21:00 Clopidogrel Bisulfate (Plavix) 75 mg DAILY PO Last administered on 06/26/18at 08 :55; Start 06/24/18 at 12:00; Stop 06/26/18 at 22:15; Status DC Hydrochlorothiazide (Hydrodiuril) 25 mg DAILY PO Last administered on at 09:09; Start 06/24/18 at 12:00; Status Future Hold Metoprolol Succinate (Toprol Xl) 25 mg DAILY PO Last administered on 06/27/18at 08:02; Start 06/24/18 at 12:00 Niacin (Slo-Niacin) 500 mg QHS PO Last administered on 06/26/18at 20:47; Start 06/24/18 at 21:00 Piperacillin Sod/ Tazobactam Sod (Zosyn) 2.25 gm Q6HRS IV ; Start 06/24/18 at 12 :00; Status UNV Tamsulosin HCl (Flomax) 0.4 mg HS PO Last administered on 06/26/18 20:47; Start 06/24/18 at 21:00 Acetaminophen/ Codeine Phosphate (Tylenol #3) 1 tab Q6HRS PRN PO PAIN Last administered on 06/27/18 04:40; Start 06/24/18 at 11:30 Amlodipine Besylate (Norvasc) 5 mg DAILY PO Last administered on 06/27/18 08: 00; Start 06/24/18 at 12:00 Aspirin (Aspirin Enteric Coated) 81 mg DAILYWBKFT PO Last administered on 07:56; Start 06/24/18 at 12:00 Atorvastatin Calcium (Lipitor) 40 mg QHS PO Last administered on 06/26/18 20: 47; Start 06/24/18 at 21:00 Vitamin D (Vitamin D3) 5,000 unit DAILY PO Last administered on 06/27/18 07:56 ; Start 06/24/18 at 12:00 Non-Formulary Medication (Dulaglutide (Trulicity)) 1.5 mg DAILY SQ ; Start 06/25 at 09:00; Stop 06/25/18 at 09:00; Status DC Glimepiride (Amaryl) 1 mg BID PO Last administered on 06/24/18at 12:25; Start at 12:00; Status Future Hold Insulin Glargine (Lantus) 40 units HS SQ Last administered on 06/24/18at 21:16; Start 06/24/18 at 21:00; Stop 06/25/18 at 22:53; Status DC Non-Formulary Medication (Lactobacillus Acidophilus (Acidophilus)) 1 each BID PO ; Start 06/24/18 at 21:00; Status UNV Levothyroxine Sodium (Synthroid) 50 mcg DAILY06 PO Last administered on 05:19; Start 06/24/18 at 12:00 Multivitamins/ Calcium (Thera-M Plus) 1 tab DAILY PO Last administered on at 08:00; Start 06/24/18 at 12:00 Insulin Human Lispro (HumaLOG) 0-5 UNITS TIDWMEALS SQ Last administered on 06/26at 17:19; Start 06/24/18 at 12:00 Dextrose 12.5 gm PRN Q15MIN PRN IV SEE COMMENTS Last administered on 06/25/18at 02:47; Start 06/24/18 at 11:45 Magnesium Sulfate 50 ml @ 25 mls/hr 1X ONCE IV Last administered on 06/24/18at 13:14; Start 06/24/18 at 12:45; Stop 06/24/18 at 14:44; Status DC Furosemide (Lasix) 40 mg 1X ONCE IVP Last administered on 06/24/18at 16:42; Start 06/24/18 at 17:00; Stop 06/24/18 at 17:01; Status DC Alteplase, Recombinant (Cathflo) 2 mg 1X ONCE INT CAT Last administered on at 01:27; Start 06/24/18 at 23:00; Stop 06/24/18 at 23:01; Status DC Furosemide (Lasix) 40 mg 1X ONCE IVP Last administered on 06/25/18at 16:18; Start 06/25/18 at 16:10; Stop 06/25/18 at 16:11; Status DC Insulin Glargine (Lantus) 15 units HS SQ Last administered on 06/26/18at 20:53; Start 06/26/18 at 21:00 Ferrous Sulfate (Feosol) 325 mg DAILYWBKFT PO Last administered on 06/27/18 07 :56; Start 06/26/18 at 09:30 Furosemide (Lasix) 40 mg DAILY IVP Last administered on 06/27/18at 08:00; Start 06/26/18 at 15:15 Active Scripts Active Reported Zosyn 2.25 Gram Vial (Piperacillin Sodium/Tazobactam) 2.25 Gm Vial 2.25 Gm IV Q6HRS Trulicity (Dulaglutide) 1.5 Mg/0.5 Ml Pen.injctr 1.5 Mg SQ DAILY Toujuan manuel Solostar (Insulin Glargine,Hum.rec.anlog) 300 Unit/1 Ml Insuln.pen 40 Unit SQ HS Flomax (Tamsulosin Hcl) 0.4 Mg Cap.er.24h 1 Cap PO HS Niaspan (Niacin) 500 Mg Tab.er.24h 1 Tab PO QHS Multivitamins (Multivitamin) 1 Each Tablet 1 Tab PO DAILY Metoprolol Succinate ( Xl ) (Metoprolol Succinate) 25 Mg Tab.er.24h 1 Tab PO DAILY Levothyroxine Sodium 50 Mcg Tablet 1 Tab PO DAILY06 Acidophilus (Lactobacillus Acidophilus) 1 Each Capsule 1 Each PO BID Hydrochlorothiazide Tablet (Hydrochlorothiazide) 25 Mg Tablet 25 Mg PO DAILY Glimepiride 1 Mg Tablet 1 Tab PO BID Clopidogrel (Clopidogrel Bisulfate) 75 Mg Tablet 1 Tab PO DAILY Vitamin D (Cholecalciferol (Vitamin D3)) 2,000 Unit Capsule 5,000 Unit PO DAILY Atorvastatin Calcium 40 Mg Tablet 1 Tab PO QHS Aspirin 81 Mg Tab.chew 81 Mg PO DAILY Amlodipine Besylate 5 Mg Tablet 1 Tab PO DAILY Tylenol With Codeine #3 Tablet (Acetaminophen With Codeine) 1 Each Tablet 1 Tab PO Q6HRS PRN Vitals/I & O Vital Sign - Last 24 Hours 06/26/18 06/26/18 06/26/18 06/26/18 15:12 18:57 19:30 22:59 Temp 98.2 98.1 98.2 Pulse 86 88 79 Resp 20 18 20 B/P (MAP) 108/66 (80) 106/68 (81) 135/74 (94) Pulse Ox 93 94 95 O2 Delivery Room Air Room Air Room Air Room Air 06/27/18 06/27/18 06/27/18 06/27/18 04:40 05:47 06:00 08:00 Temp 98.1 Pulse 81 81 Resp 20 20 20 B/P (MAP) 128/70 (89) 128/70 Pulse Ox 96 O2 Delivery Room Air Room Air Room Air 06/27/18 08:02 Pulse 81 B/P (MAP) 128/70 Intake and Output 06/26/18 06/26/18 06/27/18 15:00 23:00 07:00 Intake Total 431.27 ml 530 ml 220 ml Balance 431.27 ml 530 ml 220 ml Nutrition Consultation Dietary Evaluation: Comments: Continue current diet of 2000 calorie ADA, cardiac diet with 2000 cc fluid restriction. Encourage 75-100% intake. If PO intake <50%, supplement with Glucerna Expected Outcomes/Goals: Stable weight/PO intake 75-100% Malnutrition Findings: Food and Nutrition Intake (Mod: <75% est energy req 7days Malnutrition related to morbid: No Weight Status: Obese ELVIRA HAJI MD 06/28/18 1929: ROMAINE PEREZ APRN Jun 27, 2018 09:13 ELVIRA HAJI MD Jun 28, 2018 19:29
--- NOTE | 2018-06-27 10:14 | PN ---
DATE: SUBJECTIVE: This is a 72-year-old male visiting from [place] apparently came in through the Emergency Room, had a low hemoglobin of 6.9, recently had amputation of his right toes down in the [facility]. He has been oozing since then, went to a nursing facility and the patient noted that his hemoglobin has been dropping, became increasingly weakened, came in through the Emergency Room where his hemoglobin and hematocrit dropped down to 6.9 and 20. The patient was transfused 2 units of packed RBCs. His hemoglobin did go up to 7.7; however, has come down to 7.3 and 21. As a result of this, he will continue to be monitored carefully and make further evaluation of possible continued bleeding. C. diff was negative. OBJECTIVE: VITAL SIGNS: Blood pressure 110/60, respiratory rate 20, pulse 86, afebrile. GENERAL: The patient is alert and oriented. LUNGS: Diminished throughout, but clear. CARDIOVASCULAR: Regular sinus rhythm, 1/6 systolic ejection murmur. ABDOMEN: Soft, nontender. The patient will continue to be monitored carefully and make further evaluation on him. He has also been seen by Cardiology. IMPRESSION: Anemia secondary to probable surgical procedure. Acute on chronic diastolic heart failure, compensated. History of coronary artery disease, chronic renal insufficiency, hypoglycemia, severe protein malnutrition, low magnesium. KONG JOYCE MD DR: LISSA/shahla JOB#: [id number] / [id number]
--- NOTE | 2018-06-27 13:47 | RAD ---
PQRS Compliance statement: One or more of the following individualized dose reduction techniques were utilized for this examination: 1. Automated exposure control. 2. Adjustment of the mA and/or kV according to patient size. 3. Use of iterative reconstruction technique. Indication:anemia TECHNIQUE: CT abdomen without IV contrast with multiplanar reformats. COMPARISON: 11/04/2010 FINDINGS: Limited evaluation of solid abdominal and pelvic organs due to lack of IV contrast. Heart is normal in size. No pericardial or pleural effusion. Motion artifact is seen in the lung bases limiting optimal evaluation. Noncontrast appearance of the liver, spleen, pancreas, adrenals within normal limits. Gallstones noted. No pericholecystic fluid. No nephrolithiasis. Moderate left hydroureteronephrosis with thinning of the cortex. The distal left ureter is not included in the [id number]. No enlarged retroperitoneal lymph nodes. No retroperitoneal hematoma. Moderate diffuse atherosclerotic disease seen of the abdominal aorta. No evidence of bowel obstruction. Normal appendix. No pneumoperitoneum. Bilateral L5 pars defect. Mild anterior wedge-shaped compression deformity seen of the T12 vertebral body most likely chronic. IMPRESSION: Limited evaluation of solid abdominal and pelvic organs due to lack of IV contrast. 1. Cholelithiasis without imaging evidence of acute cholecystitis. 2. Moderate to severe left hydroureteronephrosis most likely chronic given diffuse atrophy of the renal parenchyma. Distal obstructing stone, stricture or mass is not ruled out as the distal ureter was not included in the [id number]. 2. Mild T12 compression deformity most likely chronic. Electronically signed by: Rohith Raymundo DO (06/27/2018 1:44 PM) [facility]
[2018-06-27] MEDS: TAMSULOSIN 0.4 MG CAP.ER.24H. PO SCH (21:17)
[2018-06-27] MEDS: NIACIN ER 500 MG TABLET.ER PO SCH (21:17)
[2018-06-27] MEDS: ATORVASTATIN CALCIUM 20 MG TABLET PO SCH (21:18)
[2018-06-27] MEDS: INSULIN GLARGINE 300 UNITS/3 ML INSULN.PEN. SQ SCH (21:30)
[2018-06-27 22:52] LABS: HEMATOCRIT 24.6 % (39.0-53.0); HEMOGLOBIN 8.3 g/dL (13.0-17.5)
--- NOTE | 2018-06-28 00:12 | PN ---
DATE: 06/27/2018 SUBJECTIVE: The patient is a 72-year-old male patient who was admitted originally with a complaint of increasing confusion and investigation showed that he was also found to be anemic with hemoglobin 6.9. He apparently was at [facility] for severe peripheral vascular disease. An attempt was made to revascularize his right foot; however, he ended up with the right forefoot amputation. He has also severe peripheral vascular disease in his left lower extremity and he has also revascularization procedures to the left leg according to his son and he apparently has also a stroke about 5 months ago, especially in [facility]. He has problem with memory. He was actually admitted and was continued on his IV antibiotics for his osteomyelitis that he is getting since he was discharged from as he continues to be on IV piperacillin and tazobactam. He did receive 2 units of packed RBCs; however, his hemoglobin has only to about 7.3 and hematocrit 21, and there was some concern that he might have internal bleeding, so he has had a CT scan of the abdomen and pelvis without contrast this morning, which basically showed that the patient has no retroperitoneal bleeding or hematoma; however, he has moderate left hydroureteronephrosis with thinning of the cortex. The distal left ureter is not included in the field of view. No enlarged retroperitoneal lymph nodes, no retroperitoneal hematoma, moderate diffuse atherosclerotic disease of the abdominal aorta. No evidence of bowel obstruction, normal appendix, no pneumoperitoneum. He has mild anterior wedge compression fracture deformities seen at T12 vertebral body, most likely chronic. PHYSICAL EXAMINATION: GENERAL: When I examined him this afternoon, he looked pale, but no jaundice, cyanosis, or thyromegaly. No jugular venous distension. No lower limb edema. He has 2+ bilateral lower limb edema. VITAL SIGNS: His heart rate was 77, blood pressure was 120/72, temperature was 97.6, respiratory rate 20, and oxygen saturation was 90-99% on room air. HEAD, EYES, EARS, NOSE, AND THROAT: Showed normocephalic, atraumatic. NECK: Supple. HEART: Showed normal first and second heart sounds. No gallop, rub, or murmur. CHEST: Clear to auscultation. No crepitation or rhonchi. ABDOMEN: Distended, soft, nontender. NEUROLOGIC: He is somewhat hard of hearing and at times confused, but generally all his cranial nerves seem to be grossly intact. He moves extremities without difficulty. He ambulates with a walker. His intake over the last 24 hours was 2200, no output was recorded. LABORATORY DATA: His lab work this morning showed a white cell count 5800, hemoglobin 7.3, hematocrit 21.4, MCV 88, and platelet count of 110,000. His chemistry showed a serum sodium 144, potassium 3.7, chloride 107, bicarbonate 27, anion gap of 10, BUN 23, creatinine 2, estimated GFR was 33, blood glucose was 75, calcium was 8.6. Beta natriuretic peptide was 2826. His C. diff toxins were negative. His stool for occult blood were negative. ASSESSMENT: 1. Osteomyelitis of the right foot for which he continues to be on Zosyn 2.75 grams IV q.8 hourly. 2. Peripheral vascular disease, status post right forefoot amputation. 3. Coronary artery disease. 4. Cryptogenic stroke. 5. Normochromic normocytic anemia with hemoglobin of 7.3. Hemoccult negative. CT scan of the abdomen showed no evidence of retroperitoneal bleed, acute on chronic kidney injury. His creatinine has risen from 1.5-2. The patient has severe protein-calorie malnutrition. PLAN: My plan is to arrange for him to be transfused 1 more unit of blood. He should receive also human albumin tomorrow with Lasix. Apparently, Dr. Bernabe is considering a right heart catheterization. ABDON MABRY MD DR: KHADAR/shahla JOB#: [id number] / [id number]
[2018-06-28] MEDS: PIPERACILLIN/TAZOBACTAM 2.25 GM in IV NORMAL SALINE 50ML 50 ML IV SCH ×4 (00:20→17:43)
[2018-06-28 05:35] VITALS: BP 128/68
[2018-06-28 05:41] LABS: HEMATOCRIT 23.4 % (39.0-53.0); HEMOGLOBIN 7.9 g/dL (13.0-17.5); RED BLOOD COUNT 2.66 x10^6/uL (4.30-5.70); WHITE BLOOD COUNT 5.9 x10^3/uL (4.0-11.0)
[2018-06-28 05:45] LABS: CALCIUM 8.4 mg/dL (8.5-10.1); CREATININE 1.9 mg/dL (0.7-1.3); POTASSIUM 3.7 mmol/L (3.5-5.1)
[2018-06-28] MEDS: LEVOTHYROXINE 50 MCG TABLET PO SCH (06:04)
[2018-06-28] MEDS: INSULIN LISPRO 300 UNITS/3 ML INSULN.PEN. SQ SCH ×3 (07:48→17:51)
[2018-06-28] MEDS: FERROUS SULFATE 325 MG TABLET. PO SCH (08:40)
[2018-06-28] MEDS: CHOLECALCIFEROL (VITAMIN D3) 1,000 UNIT TABLET PO SCH (08:40)
[2018-06-28] MEDS: LACTOBACILLUS RHAMNOSUS GG 1 CAPSULE. PO SCH (08:41)
[2018-06-28] MEDS: ASPIRIN ENTERIC COATED 81 MG TABLET.DR. PO SCH (08:41)
[2018-06-28] MEDS: amLODIPine BESYLATE 5 MG TABLET PO SCH (08:41)
[2018-06-28] MEDS: METOPROLOL SUCC 24HR ER 25 MG TAB.ER.24H. PO SCH (08:41)
[2018-06-28] MEDS: MULTIVITAMIN with MINERAL TABLET. PO SCH (08:41)
[2018-06-28] MEDS: FUROSEMIDE 40 MG/4 ML VIAL IVP SCH (08:42)
--- NOTE | 2018-06-28 09:37 | PDOC ---
ROMAINE PEREZ DIRECTOR TELEVISION NEWS 06/28/18 0937: PROGRESS NOTES Diagnosis Problem Problems Medical Problems: (1) Anemia Status: Acute Assessment Problems Medical Problems: (1) Anemia Status: Acute 1. Acute on chronic diastolic heart failure/RHF 2. Known prior coronary artery disease - angina free 3. recent cryptogenic stroke - event monitoring ordered but not completed. consider loop implantation as outpatient. 4. Anemia - Hgb minimally increased s/p PRBCs 5. Renal insufficiency - Cr appears to be baseline ~1.5 - 1.7, 1.9 today 6. protein malnutrition - per PCP add albumin to lasix 7. PAD s/p recent BLOWER FEEDER DYED RAW STOCK bilateral lower extremities 8. s/p recent amputation toes secondary to gangrene and osteomyelitis Objective Vital Signs Date Time Temp Pulse Resp B/P (MAP) Pulse Ox O2 Delivery O2 Flow Rate FiO2 06/28/18 08:41 84 128/68 06/28/18 08:00 Room Air 06/28/18 05:35 97.6 20 94 Intake and Output 06/28/18 07:00 Intake Total 1370 ml Balance 1370 ml Intake Oral 1140 ml IV Total 200 ml Other 30 ml # Voids 9 # Bowel Movements 4 Review of Relevant I have reviewed the following items cathy (where applicable) has been applied. Labs Laboratory Tests Test 06/26/18 09:44 06/26/18 11:52 06/26/18 16:47 06/26/18 20:02 Lactic Acid Level 1.7 mmol/L (0.4-2.0) Glucose (Fingerstick) 121 mg/dL (70-99) 156 mg/dL (70-99) 192 mg/dL (70-99) Test 06/26/18 20:31 06/26/18 22:51 06/27/18 06:30 06/27/18 07:26 Urine Collection Type Unknown Urine Color Yellow Urine Clarity Clear Urine pH 5.0 Urine Specific Dewar 1.010 Urine Protein Neg (NEG-TRACE) Urine Glucose (UA) Neg mg/dL (NEG) Urine Ketones (Stick) Neg mg/dL (NEG) Urine Blood Neg (NEG) Urine Nitrite Neg (NEG) Urine Bilirubin Neg (NEG) Urine Urobilinogen Dipstick 0.2 mg/dL (0.2 mg/dL) Urine Leukocyte Esterase Neg (NEG) Urine RBC 0 /HPF (0-2) Urine WBC 0 /HPF (0-4) Urine Squamous Epithelial Cells Occ /LPF Urine Bacteria 0 /HPF (0-FEW) Glucose (Fingerstick) 154 mg/dL (70-99) 62 mg/dL (70-99) White Blood Count 5.8 x10^3/uL (4.0-11.0) Red Blood Count 2.42 x10^6/uL (4.30-5.70) Hemoglobin 7.3 g/dL (13.0-17.5) Hematocrit 21.4 % (39.0-53.0) Mean Corpuscular Volume 88 fL (79-100) Mean Corpuscular Hemoglobin 30 pg (25-35) Mean Corpuscular Hemoglobin Concent 34 g/dL (31-37) Red Cell Distribution Width 13.9 % (11.5-14.5) Platelet Count 110 x10^3/uL (140-400) Neutrophils (%) (Auto) 62 % (31-73) Lymphocytes (%) (Auto) 19 % (24-48) Monocytes (%) (Auto) 14 % (0-9) Eosinophils (%) (Auto) 5 % (0-3) Basophils (%) (Auto) 1 % (0-3) Neutrophils # (Auto) 3.6 x10^3uL (1.8-7.7) Lymphocytes # (Auto) 1.1 x10^3/uL (1.0-4.8) Monocytes # (Auto) 0.8 x10^3/uL (0.0-1.1) Eosinophils # (Auto) 0.3 x10^3/uL (0.0-0.7) Basophils # (Auto) 0.1 x10^3/uL (0.0-0.2) Sodium Level 144 mmol/L (136-145) Potassium Level 3.7 mmol/L (3.5-5.1) Chloride Level 107 mmol/L (98-107) Carbon Dioxide Level 27 mmol/L (21-32) Anion Gap 10 (6-14) Blood Urea Nitrogen 23 mg/dL (8-26) Creatinine 2.0 mg/dL (0.7-1.3) Estimated GFR (Cockcroft-Gault) 33.0 Glucose Level 75 mg/dL (70-99) Calcium Level 8.6 mg/dL (8.5-10.1) [id number]-Rph-[id number]-Type Natriuretic Peptide 2826 pg/mL (0-124) Test 06/27/18 12:19 06/27/18 16:28 06/27/18 20:03 06/27/18 22:47 Glucose (Fingerstick) 176 mg/dL (70-99) 160 mg/dL (70-99) 263 mg/dL (70-99) Hemoglobin 8.3 g/dL (13.0-17.5) Hematocrit 24.6 % (39.0-53.0) Test 06/28/18 05:25 06/28/18 07:32 White Blood Count 5.9 x10^3/uL (4.0-11.0) Red Blood Count 2.66 x10^6/uL (4.30-5.70) Hemoglobin 7.9 g/dL (13.0-17.5) Hematocrit 23.4 % (39.0-53.0) Mean Corpuscular Volume 88 fL (79-100) Mean Corpuscular Hemoglobin 30 pg (25-35) Mean Corpuscular Hemoglobin Concent 34 g/dL (31-37) Red Cell Distribution Width 14.0 % (11.5-14.5) Platelet Count 114 x10^3/uL (140-400) Sodium Level 145 mmol/L (136-145) Potassium Level 3.7 mmol/L (3.5-5.1) Chloride Level 107 mmol/L (98-107) Carbon Dioxide Level 29 mmol/L (21-32) Anion Gap 9 (6-14) Blood Urea Nitrogen 22 mg/dL (8-26) Creatinine 1.9 mg/dL (0.7-1.3) Estimated GFR (Cockcroft-Gault) 35.0 Glucose Level 105 mg/dL (70-99) Calcium Level 8.4 mg/dL (8.5-10.1) Glucose (Fingerstick) 99 mg/dL (70-99) Microbiology 06/24/18 Stool Culture - Final, Resulted 06/24/18 Stool Culture Result 1 (HEBER) - Final, Resulted 06/24/18 Campylobacter Antigen Assay - Preliminary, Resulted 06/24/18 Campylobactor Result 1 - Preliminary, Resulted 06/24/18 Shiga Toxin Test - Final, Resulted Medications Current Medications Acetaminophen (Tylenol) 650 mg PRN Q4HRS PRN PO FEVER; Start 06/23/18 at 21:15 ; Stop 06/24/18 at 21:14; Status DC Magnesium Oxide (Magnesium Oxide) 400 mg 1X ONCE PO Last administered on at 21:26; Start 06/23/18 at 21:30; Stop 06/23/18 at 21:31; Status DC Piperacillin Sod/ Tazobactam Sod (Zosyn Per Pharmacy) 1 each PRN DAILY PRN MC SEE COMMENTS; Start 06/23/18 at 23:45 Piperacillin Sod/ Tazobactam Sod 2.25 gm/Sodium Chloride 50 ml @ 100 mls/hr Q6HRS IV Last administered on 06/28/18at 05:21; Start 06/24/18 at 00:00 Lactobacillus Rhamnosus (Culturelle) 1 cap BID PO Last administered on at 08:41; Start 06/24/18 at 21:00 Clopidogrel Bisulfate (Plavix) 75 mg DAILY PO Last administered on 06/26/18at 08 :55; Start 06/24/18 at 12:00; Stop 06/26/18 at 22:15; Status DC Hydrochlorothiazide (Hydrodiuril) 25 mg DAILY PO Last administered on at 09:09; Start 06/24/18 at 12:00; Status Future Hold Metoprolol Succinate (Toprol Xl) 25 mg DAILY PO Last administered on 06/28/18at 08:41; Start 06/24/18 at 12:00 Niacin (Slo-Niacin) 500 mg QHS PO Last administered on 06/27/18at 21:17; Start 06/24/18 at 21:00 Piperacillin Sod/ Tazobactam Sod (Zosyn) 2.25 gm Q6HRS IV ; Start 06/24/18 at 12 :00; Status UNV Tamsulosin HCl (Flomax) 0.4 mg HS PO Last administered on 06/27/18at 21:17; Start 06/24/18 at 21:00 Acetaminophen/ Codeine Phosphate (Tylenol #3) 1 tab Q6HRS PRN PO PAIN Last administered on 06/27/18at 21:18; Start 06/24/18 at 11:30 Amlodipine Besylate (Norvasc) 5 mg DAILY PO Last administered on 06/28/18 08: 41; Start 06/24/18 at 12:00 Aspirin (Aspirin Enteric Coated) 81 mg DAILYWBKFT PO Last administered on 08:41; Start 06/24/18 at 12:00 Atorvastatin Calcium (Lipitor) 40 mg QHS PO Last administered on 06/27/18 21: 18; Start 06/24/18 at 21:00 Vitamin D (Vitamin D3) 5,000 unit DAILY PO Last administered on 06/28/18 08:40 ; Start 06/24/18 at 12:00 Non-Formulary Medication (Dulaglutide (Trulicity)) 1.5 mg DAILY SQ ; Start 06/25 at 09:00; Stop 06/25/18 at 09:00; Status DC Glimepiride (Amaryl) 1 mg BID PO Last administered on 06/24/18 12:25; Start at 12:00; Status Future Hold Insulin Glargine (Lantus) 40 units HS SQ Last administered on 06/24/18 21:16; Start 06/24/18 at 21:00; Stop 06/25/18 at 22:53; Status DC Non-Formulary Medication (Lactobacillus Acidophilus (Acidophilus)) 1 each BID PO ; Start 06/24/18 at 21:00; Status UNV Levothyroxine Sodium (Synthroid) 50 mcg DAILY06 PO Last administered on 06:04; Start 06/24/18 at 12:00 Multivitamins/ Calcium (Thera-M Plus) 1 tab DAILY PO Last administered on 08:41; Start 06/24/18 at 12:00 Insulin Human Lispro (HumaLOG) 0-5 UNITS TIDWMEALS SQ Last administered on 06/27 13:32; Start 06/24/18 at 12:00 Dextrose 12.5 gm PRN Q15MIN PRN IV SEE COMMENTS Last administered on 06/25/18 02:47; Start 06/24/18 at 11:45 Magnesium Sulfate 50 ml @ 25 mls/hr 1X ONCE IV Last administered on 06/24/18 13:14; Start 06/24/18 at 12:45; Stop 06/24/18 at 14:44; Status DC Furosemide (Lasix) 40 mg 1X ONCE IVP Last administered on 06/24/18at 16:42; Start 06/24/18 at 17:00; Stop 06/24/18 at 17:01; Status DC Alteplase, Recombinant (Cathflo) 2 mg 1X ONCE INT CAT Last administered on at 01:27; Start 06/24/18 at 23:00; Stop 06/24/18 at 23:01; Status DC Furosemide (Lasix) 40 mg 1X ONCE IVP Last administered on 06/25/18at 16:18; Start 06/25/18 at 16:10; Stop 06/25/18 at 16:11; Status DC Insulin Glargine (Lantus) 15 units HS SQ Last administered on 06/27/18at 21:30; Start 06/26/18 at 21:00 Ferrous Sulfate (Feosol) 325 mg DAILYWBKFT PO Last administered on 06/28/18at 08 :40; Start 06/26/18 at 09:30 Furosemide (Lasix) 40 mg DAILY IVP Last administered on 06/28/18at 08:42; Start 06/26/18 at 15:15 Active Scripts Active Reported Zosyn 2.25 Gram Vial (Piperacillin Sodium/Tazobactam) 2.25 Gm Vial 2.25 Gm IV Q6HRS Trulicity (Dulaglutide) 1.5 Mg/0.5 Ml Pen.injctr 1.5 Mg SQ DAILY Toujeo Solostar (Insulin Glargine,Hum.rec.anlog) 300 Unit/1 Ml Insuln.pen 40 Unit SQ HS Flomax (Tamsulosin Hcl) 0.4 Mg Cap.er.24h 1 Cap PO HS Niaspan (Niacin) 500 Mg Tab.er.24h 1 Tab PO QHS Multivitamins (Multivitamin) 1 Each Tablet 1 Tab PO DAILY Metoprolol Succinate ( Xl ) (Metoprolol Succinate) 25 Mg Tab.er.24h 1 Tab PO DAILY Levothyroxine Sodium 50 Mcg Tablet 1 Tab PO DAILY06 Acidophilus (Lactobacillus Acidophilus) 1 Each Capsule 1 Each PO BID Hydrochlorothiazide Tablet (Hydrochlorothiazide) 25 Mg Tablet 25 Mg PO DAILY Glimepiride 1 Mg Tablet 1 Tab PO BID Clopidogrel (Clopidogrel Bisulfate) 75 Mg Tablet 1 Tab PO DAILY Vitamin D (Cholecalciferol (Vitamin D3)) 2,000 Unit Capsule 5,000 Unit PO DAILY Atorvastatin Calcium 40 Mg Tablet 1 Tab PO QHS Aspirin 81 Mg Tab.chew 81 Mg PO DAILY Amlodipine Besylate 5 Mg Tablet 1 Tab PO DAILY Tylenol With Codeine #3 Tablet (Acetaminophen With Codeine) 1 Each Tablet 1 Tab PO Q6HRS PRN Vitals/I & O Vital Sign - Last 24 Hours 06/27/18 06/27/18 06/27/18 06/27/18 10:20 15:25 15:43 19:28 Temp 97.6 97.9 97.8 Pulse 77 80 82 Resp 20 20 20 B/P (MAP) 120/72 (88) 120/63 (82) 123/59 (80) Pulse Ox 92 98 92 99 O2 Delivery Room Air Room Air Room Air Room Air 06/27/18 06/27/18 06/27/18 06/27/18 20:00 20:00 20:00 20:27 Temp 97.8 97.8 97.9 Pulse 88 88 87 Resp 18 B/P (MAP) 123/66 123/66 (85) 137/56 Pulse Ox 98 O2 Delivery Room Air Room Air 06/27/18 06/27/18 06/27/18 06/27/18 21:18 21:27 22:27 22:35 Temp 96.8 97.9 Pulse 91 88 Resp 18 B/P (MAP) 117/60 148/65 Pulse Ox 98 98 O2 Delivery Room Air Room Air 06/27/18 06/28/18 06/28/18 06/28/18 23:27 05:35 08:00 08:41 Temp 97.7 97.6 Pulse 82 84 84 Resp 18 20 B/P (MAP) 128/64 (85) 128/68 (88) 128/68 Pulse Ox 95 94 O2 Delivery Room Air Room Air Room Air 06/28/18 08:41 Pulse 84 B/P (MAP) 128/68 Intake and Output 06/27/18 06/27/18 06/28/18 15:00 23:00 07:00 Intake Total 650 ml 520 ml 200 ml Balance 650 ml 520 ml 200 ml Nutrition Consultation Dietary Evaluation: Comments: Continue current diet of 2000 calorie ADA, cardiac diet with 2000 cc fluid restriction. Encourage 75-100% intake. If PO intake <50%, supplement with Glucerna Expected Outcomes/Goals: Stable weight/PO intake 75-100% Malnutrition Findings: Food and Nutrition Intake (Mod: <75% est energy req 7days Malnutrition related to morbid: No Weight Status: Obese ELVIRA HAJI MD 06/28/180: PROGRESS NOTES Review of Relevant Patient seen and examined. Agree with above nurse practitioner note. He has not had any significant improvement in his lower extremities. He continues to remain anemic. We will plan for a right heart catheterization and determine any need for titration of his diuretics especially in light of his renal dysfunction. Discussed with Dr. Rg. ROMAINE PEREZ APRN Jun 28, 2018 09:37 ELVIRA HAJI MD Jun 28, 2018 19:30
[2018-06-28] MEDS ORDERED: ALBUMIN HUMAN 25% 50 ML IV ONE (09:45)
[2018-06-28 12:35] VITALS: BP 119/71
[2018-06-28 15:34] VITALS: BP 120/66
--- NOTE | 2018-06-29 03:27 | DS ---
DATE OF DISCHARGE: 06/28/2018 DISCHARGE AND TRANSFER SUMMARY HOSPITAL COURSE: The patient is a 72-year-old male patient, who was admitted originally with altered mental status with confusion. He was found also to be anemic with hemoglobin of 6.9. He has received at least 2 units of packed RBCs here. He continued to have marked swelling of both lower extremities. He has not really responded to IV Lasix. We added some human albumin without much improvement. His hemoglobin has risen from 7.3 to 8.3 yesterday and this morning came down to 7.9. Dr. Bernabe recommended transferring the patient to [facility] for right heart catheterization with wound care consult as well as office clin asst and he probably require Procrit as his anemia is very refractory, although there is no evidence of any deficiency of hematinics. PHYSICAL EXAMINATION: GENERAL: When I saw him this afternoon, he looked well and was really in no apparent respiratory distress, pale, but no jaundice, cyanosis, or thyromegaly. No jugular venous distension. No lower limb edema. VITAL SIGNS: His heart rate was 82, blood pressure was 120/66, temperature was 97.6, respiratory rate was 20, and oxygen saturation was 94%. HEAD, EYES, EARS, NOSE AND THROAT: Showed normocephalic, atraumatic. NECK: Supple. HEART: Showed normal first and second heart sounds. No gallop, rub or murmur. CHEST: Clear to auscultation. No crepitation or rhonchi. ABDOMEN: Distended, soft, nontender. No guarding or rigidity. No organomegaly. All hernial orifices are intact. Bowel sounds normal. NEUROLOGIC: He is awake, alert, responding appropriately. Cranial nerves intact. EXTREMITIES: He moves extremities without difficulty, ambulates with a walker. He has wounds in his right foot, has also with underlying osteomyelitis for which he is on IV meropenem. His intake was 1200, no output was recorded. LABORATORY DATA: His lab work this morning showed a white cell count 5900, hemoglobin 8, hematocrit 23, MCV 88 and platelet count 114,000. His chemistry showed a serum sodium of 145, potassium 3.7, chloride 107, bicarbonate 29, anion gap of 9, BUN 22, creatinine 1.9, estimated GFR was 55 mL per minute, his glucose 105 and calcium was 8.4. DISCHARGE MEDICATIONS: He was discharged and transferred to [facility] to continue on ferrous sulfate 325 mg daily with breakfast. He is on Humalog insulin as the sliding scale before meals, Tylenol with Codeine 1 tablet every 6 hours, amlodipine besylate 5 mg once a day, aspirin 81 mg once a day, atorvastatin calcium 40 mg at bedtime, vitamin D3 5000 units daily, Plavix 75 mg once a day, Trulicity 1.5 mg 0.5 mL subcutaneous daily, glimepiride 1 mg twice a day, hydrochlorothiazide 25 mg once a day and Lantus insulin 40 units at bedtime, Lactobacillus acidophilus 1 twice a day, levothyroxine sodium 50 mcg once a day, metoprolol 25 mg extended release once a day, multivitamin 1 tablet once a day, Niaspan 500 mg at bedtime. He is on Zosyn 2.25 g IV every 6 hours, Flomax 0.4 mg at bedtime. FINAL DISCHARGE DIAGNOSES: 1. Osteomyelitis of the right foot for which he continues to be on Zosyn 2.25 g IV q.8 hourly. 2. Peripheral vascular disease, status post right forefoot amputation. 3. Coronary artery disease. 4. Cryptogenic stroke. 5. Normochromic normocytic anemia with hemoglobin 7.3. Stool for occult blood was negative. Iron studies are consistent with anemia of chronic disease. CT scan showed no evidence of retroperitoneal bleed. 6. [id number] kidney injury. His creatinine has risen from 1.5 to 2. 7. Severe protein-calorie malnutrition. PLAN: The patient will be transferred to [facility] with a plan to arrange for right heart catheterization. Consult the Nephrology team as well as the wound care team. ABDON MABRY MD DR: KHADAR/shahla JOB#: [id number] / [id number]
== END 2018-06-28 19:00 | disposition short-term general hospital (02) | DRG 637 ==
LOC: ER 19:26 → 1 SOUTH 21:00
PROVIDERS: ADMIT Internal Medicine; ATTEND Internal Medicine
PROC: 30233N1 Transfusion of Nonautologous Red Blood Cells into Peripheral Vein, Percutaneous Approach (ICD-10-PCS; principal; 2018-06-23)
DX: E11.69 Type 2 diabetes mellitus with other specified complication (principal); I50.33 Acute on chronic diastolic (congestive) heart failure; E43 Unspecified severe protein-calorie malnutrition; I13.0 Hypertensive heart and chronic kidney disease with heart failure and stage 1 through stage 4 chronic kidney disease, or unspecified chronic kidney disease; D62 Acute posthemorrhagic anemia; M86.8X7 Other osteomyelitis, ankle and foot; N17.9 Acute kidney failure, unspecified; M79.89 Other specified soft tissue disorders; I25.10 Atherosclerotic heart disease of native coronary artery without angina pectoris; N18.9 Chronic kidney disease, unspecified; I87.2 Venous insufficiency (chronic) (peripheral); E11.51 Type 2 diabetes mellitus with diabetic peripheral angiopathy without gangrene; D63.8 Anemia in other chronic diseases classified elsewhere; E03.9 Hypothyroidism, unspecified; E11.22 Type 2 diabetes mellitus with diabetic chronic kidney disease; E78.5 Hyperlipidemia, unspecified; I07.1 Rheumatic tricuspid insufficiency; Z86.73 Personal history of transient ischemic attack (TIA), and cerebral infarction without residual deficits; Z89.431 Acquired absence of right foot; Z98.61 Coronary angioplasty status; Z79.4 Long term (current) use of insulin
CPT/HCPCS: 36415; 71045; 74150; 80048; 80053; 81001; 82248; 82274; 82947; 83010; 83540; 83550; 83605; 83735; 83880; 85014; 85018; 85025; 85027; 85045; 86850; 86880; 86900; 86901; 86920; 87045; 87493; 87641; J1815; J1940; J2543; J2997; J3475; P9016; P9046; 97110; 97116; 97530; 99285-25

== ENCOUNTER 2018-07-24 02:06 | Inpatient (IN) | payer OTHER ==
[~2018-07-24] VITALS: Ht 170.2 cm; Wt 106.8 kg
[~2018-07-24 02:06] MED LIST: ACET-704 PO; AMLO5TAB10 PO; ASPI-630 PO; ATOR40TA59 PO; CHOL2000 PO; CLOP75TA PO; DULA1.5P SQ; FERR325T72 PO; GLIM1TAB2 PO; HYDR-2145 PO; INSU100I11 SQ; INSU300I SQ; LACT1CAP2 PO; LEVO50TA5 PO; METO-239 PO; MULT1TAB52 PO; NIAC500T PO; PIPE2.255 IV; TAMS0.4C97 PO
--- NOTE | 2018-07-24 02:31 | PHYS DOC ---
Past History Past Medical History: CVA, Diabetes, Hypertension Past Surgical History: Other Alcohol Use: None Drug Use: None Adult General Chief Complaint Chief Complaint: DYSPNEA/RESPIRATOY DISTRESS HPI HPI Patient is a 73-year-old male who presents with shortness of breath that has been going on for the past 48 hours. Worse with laying flat. Improved with upright position. Patient has recently returned home from stroke rehabilitation therapy. Denies any new weakness or numbness. Denies any fever or cough. Symptoms are moderate to severe when laying down and have been getting worse over time. He reports that he is supposed to be on a water pill but was not discharged with one from the rehabilitation facility. He and his family are unable to recall which diuretic he was taking.[] Review of Systems Review of Systems Constitutional: Denies fever or chills [] Eyes: Denies change in visual acuity, redness, or eye pain [] HENT: Denies nasal congestion or sore throat [] Respiratory: See history of present illness[] Cardiovascular: No chest pain or palpitations[] GI: Denies abdominal pain, nausea, vomiting, bloody stools or diarrhea [] : Denies dysuria or hematuria [] Musculoskeletal: Denies back pain or joint pain [] Integument: Denies rash or skin lesions [] Neurologic: Denies headache, focal weakness or sensory changes [] Endocrine: Denies polyuria or polydipsia [] All other systems were reviewed and found to be within normal limits, except as documented in this note. Current Medications Current Medications Current Medications Medications (Trade) Dose Ordered Sig/Sabi Start Time Stop Time Status Last Admin Dose Admin Albuterol Sulfate (Ventolin) 2.5 mg 1X ONCE 07/24/18 03:00 07/24/18 03:01 Allergies Allergies Allergies Coded Allergies Type Severity Reaction Last Updated Verified No Known Drug Allergies 07/24/18 No Physical Exam Physical Exam Constitutional: Well developed, well nourished, no acute distress, non-toxic appearance. [] HENT: Normocephalic, atraumatic, bilateral external ears normal, oropharynx moist, no oral exudates, nose normal. [] Eyes: PERRLA, EOMI, conjunctiva normal, no discharge. [] Neck: Normal range of motion, no tenderness, supple, no stridor. [] Cardiovascular:Heart rate regular rhythm, no murmur [] Lungs & Thorax: Bilateral breath sounds are decreased throughout, no increased work of breathing noted while the patient is sitting in a wheelchair[] Abdomen: Bowel sounds normal, soft, no tenderness, no masses, no pulsatile masses. [] Skin: Warm, dry, no erythema, no rash. [] Back: No tenderness, no CVA tenderness. [] Extremities: No tenderness, no cyanosis, no clubbing, ROM intact, 2-3+ pretibial edema. [] Neurologic: Alert and oriented X 3, normal motor function, normal sensory function, no focal deficits noted. [] Psychologic: Affect normal, judgement normal, mood normal. [] EKG EKG EKG shows a sinus rhythm at 78 bpm, left axis at -3, QTC of 448 ms, no ST elevations. Interpreted by me at 0239. Compared with EKG from 03/02/2018 shows no acute changes[] Radiology/Procedures Radiology/Procedures Chest x-ray shows bilateral pleural effusions that are worse when compared with chest x-ray of 06/24/2018[] Course & Med Decision Making Course & Med Decision Making Pertinent Labs and Imaging studies reviewed. (See chart for details) [] Dragon Disclaimer Dragon Disclaimer This electronic medical record was generated, in whole or in part, using a voice recognition dictation system. Departure Departure: Impression: Primary Impression: CHF (congestive heart failure) Disposition: ADMITTED INPATIENT Admitting Physician: Gurinder Lee Condition: IMPROVED Referrals: KATHIA EASTON (PCP) Problem Qualifiers Primary Impression: CHF (congestive heart failure) Heart failure type: unspecified Heart failure chronicity: acute on chronic Qualified Codes: I50.9 - Heart failure, unspecified FARA DEL TORO DO Jul 24, 2018 02:31
[2018-07-24] MEDS ORDERED: ALBUTEROL SULFATE 2.5 MG/3 ML NEBU. NEB ONE (03:00)
[2018-07-24] MEDS: IPRATRPIUM/ALBUTEROL 0.5/2.5MG 3 ML NEBU. NEB SCH ×4 (03:02→20:53)
[2018-07-24 03:19] LABS: BASO # 0.1 x10^3/uL (0.0-0.2); BASO % 1 % (0-3); EOS # 0.3 x10^3/uL (0.0-0.7); EOS % 4 % (0-3); HEMATOCRIT 31.2 % (39.0-53.0); HEMOGLOBIN 9.9 g/dL (13.0-17.5); LYMPH # 0.8 x10^3/uL (1.0-4.8); LYMPH % 10 % (24-48); MEAN CORPUSCULAR HEMOGLOBIN 30 pg (25-35); MEAN CORPUSCULAR HGB CONC 32 g/dL (31-37); MEAN CORPUSCULAR VOLUME 93 fL (79-100); MONO % 11 % (0-9); NEUT # 6.4 x10^3uL (1.8-7.7); NEUT % 75 % (31-73); PLATELET COUNT 173 x10^3/uL (140-400); RED BLOOD COUNT 3.35 x10^6/uL (4.30-5.70); WHITE BLOOD COUNT 8.6 x10^3/uL (4.0-11.0)
[2018-07-24] MEDS ORDERED: FUROSEMIDE 40 MG/4 ML VIAL IVP ONE (03:30)
[2018-07-24 03:43] LABS: ALBUMIN 2.6 g/dL (3.4-5.0); ALBUMIN/GLOBULIN RATIO 0.6 (1.0-1.7); CREATININE 1.6 mg/dL (0.7-1.3); GFR 42.6; POTASSIUM 4.4 mmol/L (3.5-5.1); TOTAL BILIRUBIN 1.2 mg/dL (0.2-1.0); TOTAL PROTEIN 6.9 g/dL (6.4-8.2)
[2018-07-24] MEDS ORDERED: NITROGLYCERIN SUBLINGUAL 0.4 MG BOTTLE OF 25. SL PRN (04:00)
[2018-07-24] MEDS ORDERED: ONDANSETRON PF 4 MG/2 ML VIAL. IV PRN (04:00)
[2018-07-24] MEDS ORDERED: ACETAMINOPHEN 325 MG TABLET PO PRN (04:00)
[2018-07-24 05:00] VITALS: BP 153/73
--- NOTE | 2018-07-24 07:43 | RAD ---
Chest, 2 views, 07/24/2018: HISTORY: Heart and lung disease, respiratory distress Comparison is made to a study from 06/24/2018. The right PICC has been removed. Moderate patchy bilateral pulmonary infiltrates have developed with dominant involvement of in the right parahilar region. The underlying pulmonary vascularity is poorly defined. There is a moderate volume of left-sided pleural fluid which has increased as well as a smaller amount of right-sided pleural fluid. The heart is at the upper limits of normal in size with obscuration of the cardiac margins due to the basilar opacities. IMPRESSION: Moderate bilateral pulmonary infiltrates suggesting pulmonary edema, with a moderate amount of associated bilateral pleural fluid. Electronically signed by: Amador Suarez MD (07/24/2018 7:40 AM) [facility]
[2018-07-24] MEDS: NON FORMULARY ITEM (Dulaglutide (Trulicity) 1.5 MG) SQ SCH (09:00)
[2018-07-24] MEDS ORDERED: ACETAMINOPHEN/CODEINE 300/30MG TABLET PO PRN (09:00)
[2018-07-24] MEDS: CHOLECALCIFEROL (VITAMIN D3) 1,000 UNIT TABLET PO SCH (09:00)
[2018-07-24] MEDS ORDERED: FUROSEMIDE 40 MG TABLET PO SCH (09:00)
[2018-07-24] MEDS: amLODIPine BESYLATE 5 MG TABLET PO SCH (10:40)
[2018-07-24] MEDS: LEVOTHYROXINE 50 MCG TABLET PO SCH (10:40)
[2018-07-24] MEDS: CLOPIDOGREL BISULFATE 75 MG TABLET PO SCH (10:40)
[2018-07-24] MEDS: ASPIRIN 81 MG TAB.CHEW PO SCH (10:40)
[2018-07-24] MEDS: LACTOBACILLUS RHAMNOSUS GG 1 CAPSULE. PO SCH ×2 (10:40→20:42)
[2018-07-24] MEDS: FERROUS SULFATE 325 MG TABLET. PO SCH (10:40)
[2018-07-24] MEDS: METOPROLOL SUCC 24HR ER 25 MG TAB.ER.24H. PO SCH (10:40)
[2018-07-24] MEDS: GLIMEPIRIDE 2 MG TABLET PO SCH ×2 (10:41→20:42)
[2018-07-24] MEDS: MULTIVITAMIN with MINERAL TABLET. PO SCH (10:41)
[2018-07-24 11:00] VITALS: BP 141/58
[2018-07-24] MEDS ORDERED: INSULIN LISPRO 300 UNITS/3 ML INSULN.PEN. SQ SCH (12:00)
[2018-07-24] MEDS ORDERED: DEXTROSE 50% 25 GM / 50ML DISP.SYRIN. IV PRN (12:45)
[2018-07-24 15:25] VITALS: BP 148/77
--- NOTE | 2018-07-24 16:42 | HP ---
ADMIT DATE: 07/24/2018 HISTORY OF PRESENT ILLNESS: The patient is a 73-year-old male patient, who came to the Emergency Room complaining of shortness of breath. According to him, he was discharged from [facility] on Tuesday morning after he finished the last dose of his IV antibiotic in the form of Zosyn and was discharged home with oral Augmentin; however, he was not discharged with any script for his diuretics and apparently has been complaining of severe shortness of breath and end up coming to the Emergency Room of [facility] where he was treated with IV diuretics. By the time I saw him in the hospital, he was sitting on the edge of the bed, feeling much more comfortable, although continued to be hypoxic. Unfortunately, he does not tolerate nasal cannula and even the facemask and kept removing it and we did some investigative work and apparently he was discharged home with Augmentin, but not with his Lasix and given the fact that he continued to have fluid overload, markedly swollen legs and also crackles in both lungs, I convinced him to stay one more night to continue with IV Lasix and we will discharge him tomorrow with his oral furosemide. PAST MEDICAL HISTORY: Significant for coronary artery disease, type 2 diabetes, hypothyroidism, hyperlipidemia, has also osteomyelitis of his right big toe, status post transmetatarsal amputation, peripheral vascular disease, status post right forefoot amputation. He has cryptogenic stroke, normochromic normocytic anemia, acute on chronic kidney injury and severe protein-calorie malnutrition. Has also osteomyelitis of the right foot for which he was treated with Zosyn 2.25 grams IV q.8 hourly. He finished treatment 3 days ago. FAMILY HISTORY: Noncontributory. SOCIAL HISTORY: He apparently lives with his sister, has one son. He does not smoke, drink alcohol or use any recreational drugs. REVIEW OF SYSTEMS: As per history of present illness. PHYSICAL EXAMINATION: GENERAL: On arrival to the Emergency Room; he was pale, but no jaundice, cyanosis, or thyromegaly. No jugular venous distension. No lower limb edema. VITAL SIGNS: His heart rate was 83, blood pressure 142/80, temperature was 97.2, respiratory rate was 36 and oxygen saturation was 89% on room air. HEAD, EYES, EARS, NOSE, AND THROAT: Showed normocephalic, atraumatic. NECK: Supple. HEART: Showed normal first and second heart sounds with no gallop, rub or murmur. CHEST: He has bilateral crepitation, no audible rhonchi. ABDOMEN: Distended, soft, nontender. No guarding or rigidity. No organomegaly. All hernial orifice intact. Bowel sounds normal. NEUROLOGIC: He is awake, alert, somewhat confused. All his cranial nerves are intact. He moves his upper extremities without difficulty. He is actually able to ambulate. LABORATORY DATA: On arrival showed a white cell count of 8600, hemoglobin 9.9, hematocrit 31, MCV 93, and platelet count of 173,000. Serum sodium is 143, potassium 4.4, chloride 107, bicarbonate 27, anion gap of 9, BUN 19, creatinine 1.6, estimated GFR was 42 mL per minute. His glucose was 220, calcium was 9, magnesium 2. Total bilirubin, AST, ALT, alkaline phosphatase slightly elevated. BNP was 6836. Total protein was 6.9, albumin was 2.6. His prothrombin time was 11.6, INR 1.2. His chest x-ray showed the patient has moderate patchy bilateral pulmonary infiltrates have developed with dominant involvement of the right perihilar region. Underlying pulmonary vascularity is poorly defined. There is a moderate volume of left-sided pleural effusion, which has increased as well as smaller amount of right-sided pleural effusion. The heart at the upper limit of normal in size with obscuration of the cardiac margin due to basilar opacities. The patient was given IV Lasix at the Emergency Room as well as breathing treatment and was admitted for further evaluation and treatment. His first set of cardiac enzyme was only 0.017. His EKG showed that was in sinus rhythm at 78 beats per minute, left axis at normal QT interval, no ST elevation compared to another EKG done on 03/02/2018 showed no acute changes. PLAN: My plan is to do 2 more sets of cardiac enzymes and also to arrange for him to continue with IV Lasix at least tomorrow morning and then discharge him on oral Lasix. ABDON MABRY MD DR: KHADAR/shahla JOB#: [id number] / [id number]
[2018-07-24] MEDS: INSULIN LISPRO 300 UNITS/3 ML INSULN.PEN. SQ SCH (17:25)
[2018-07-24 20:00] VITALS: BP 151/72
[2018-07-24] MEDS: TAMSULOSIN 0.4 MG CAP.ER.24H. PO SCH (20:42)
[2018-07-24] MEDS: NIACIN ER 500 MG TABLET.ER PO SCH (20:42)
[2018-07-24] MEDS: ATORVASTATIN CALCIUM 20 MG TABLET PO SCH (20:42)
[2018-07-24] MEDS: AMOXICILLIN/K CLAV 500/125MG TABLET. PO SCH (20:43)
[2018-07-24] MEDS: INSULIN GLARGINE 300 UNITS/3 ML INSULN.PEN. SQ SCH (20:55)
[2018-07-24 23:00] VITALS: BP 133/53
[2018-07-25] MEDS: IPRATRPIUM/ALBUTEROL 0.5/2.5MG 3 ML NEBU. NEB SCH (05:26)
[2018-07-25 06:11] VITALS: BP 146/71
[2018-07-25] MEDS: LEVOTHYROXINE 50 MCG TABLET PO SCH (06:24)
[2018-07-25] MEDS: INSULIN LISPRO 300 UNITS/3 ML INSULN.PEN. SQ SCH ×3 (08:00→16:48)
[2018-07-25 08:25] LABS: ALBUMIN 2.4 g/dL (3.4-5.0); ALBUMIN/GLOBULIN RATIO 0.6 (1.0-1.7); CREATININE 1.6 mg/dL (0.7-1.3); GFR 42.6; POTASSIUM 3.5 mmol/L (3.5-5.1); TOTAL PROTEIN 6.7 g/dL (6.4-8.2)
[2018-07-25] MEDS: MULTIVITAMIN with MINERAL TABLET. PO SCH (08:25)
[2018-07-25] MEDS: ASPIRIN 81 MG TAB.CHEW PO SCH (08:25)
[2018-07-25] MEDS: CHOLECALCIFEROL (VITAMIN D3) 1,000 UNIT TABLET PO SCH (08:25)
[2018-07-25] MEDS: FERROUS SULFATE 325 MG TABLET. PO SCH (08:25)
[2018-07-25] MEDS: LACTOBACILLUS RHAMNOSUS GG 1 CAPSULE. PO SCH ×2 (08:25→21:27)
[2018-07-25] MEDS: amLODIPine BESYLATE 5 MG TABLET PO SCH (08:25)
[2018-07-25] MEDS: CLOPIDOGREL BISULFATE 75 MG TABLET PO SCH (08:25)
[2018-07-25] MEDS: AMOXICILLIN/K CLAV 500/125MG TABLET. PO SCH ×2 (08:26→21:27)
[2018-07-25] MEDS: METOPROLOL SUCC 24HR ER 25 MG TAB.ER.24H. PO SCH (08:26)
[2018-07-25] MEDS: GLIMEPIRIDE 2 MG TABLET PO SCH ×2 (08:30→21:28)
[2018-07-25] MEDS: NON FORMULARY ITEM (Dulaglutide (Trulicity) 1.5 MG) SQ SCH (08:31)
[2018-07-25 08:45] LABS: BASO # 0.1 x10^3/uL (0.0-0.2); BASO % 1 % (0-3); EOS # 0.4 x10^3/uL (0.0-0.7); EOS % 5 % (0-3); HEMATOCRIT 27.7 % (39.0-53.0); HEMOGLOBIN 9.2 g/dL (13.0-17.5); LYMPH # 1.1 x10^3/uL (1.0-4.8); LYMPH % 13 % (24-48); MEAN CORPUSCULAR HEMOGLOBIN 31 pg (25-35); MEAN CORPUSCULAR HGB CONC 33 g/dL (31-37); MEAN CORPUSCULAR VOLUME 92 fL (79-100); MONO # 1.1 x10^3/uL (0.0-1.1); MONO % 13 % (0-9); NEUT # 5.6 x10^3uL (1.8-7.7); NEUT % 68 % (31-73); PLATELET COUNT 184 x10^3/uL (140-400); RED CELL DISTRIBUTION WIDTH 18.1 % (11.5-14.5); WHITE BLOOD COUNT 8.2 x10^3/uL (4.0-11.0)
[2018-07-25] MEDS ORDERED: FUROSEMIDE 40 MG/4 ML VIAL IVP SCH (09:00)
[2018-07-25 10:53] VITALS: BP 138/59
--- NOTE | 2018-07-25 12:47 | PDOC2 ---
CONSULT Date of Admission DATE: 07/25/18 TIME: 12:26 Reason for Consult: CHF History of Present Illness Mr Mi is a 73 year old male who was recently discharged to home from a rehab facility after a stroke. He apparently was discharged home without his diuretic. He reports increasing swelling and shortness of breath over the last couple days. He reoprts significantly more dyspnea when trying to lay in bed. He has apparently been very forgetful, a poor historian and intermittently confused by nursing report. This am he appears appropriate and cooperative thought he reports a desire to go home. He denies chest pain, palpitations, lightheadedness or syncope. Past Medical History chronic diastolic heart failure Known prior coronary artery disease - angina free recent cryptogenic stroke Anemia - s/p recent PRBCs Renal insufficiency - Cr appears to be baseline ~1.5 protein malnutrition PAD s/p recent LICENSED THERAPIST bilateral lower extremities s/p recent amputation toes secondary to gangrene and osteomyelitis benign prostatic hypertrophy diabetes mellitus hypothyroidism Past Surgical History amputation of several toes Family History non contributory Social History The patient denies any current alcohol, tobacco or illicit drug use. He was recently discharged from a rehab facility and reports living with his sister and niece. . Current Medications Current Medications Albuterol Sulfate (Ventolin) 2.5 mg 1X ONCE NEB Last administered on at 03:01; Start 07/24/18 at 03:00; Stop 07/24/18 at 03:01; Status DC Furosemide (Lasix) 40 mg 1X ONCE IVP Last administered on 07/24/18at 03:11; Start 07/24/18 at 03:30; Stop 07/24/18 at 03:31; Status DC Ondansetron HCl (Zofran) 4 mg PRN Q4HRS PRN IV NAUSEA/VOMITING; Start 07/24/18 at 04:00; Stop 07/25/18 at 03:59; Status DC Acetaminophen (Tylenol) 650 mg PRN Q4HRS PRN PO FEVER; Start 07/24/18 at 04:00 ; Stop 07/25/18 at 03:59; Status DC Nitroglycerin (Nitrostat) 0.4 mg PRN Q5MIN PRN SL CHEST PAIN; Start 07/24/18 at 04:00; Stop 07/25/18 at 03:59; Status DC Albuterol/ Ipratropium (Duoneb) 3 ml RTQID NEB Last administered on 07/25/18 05:26; Start 07/24/18 at 08:00; Stop 07/25/18 at 07:59; Status DC Clopidogrel Bisulfate (Plavix) 75 mg DAILY PO Last administered on 07/25/18 08 :25; Start 07/24/18 at 09:00 Ferrous Sulfate (Feosol) 325 mg DAILYWBKFT PO Last administered on 07/25/18 08 :25; Start 07/24/18 at 09:00 Insulin Human Lispro (HumaLOG) TIDWMEALS SQ ; Start 07/24/18 at 12:00; Stop at 12:38; Status DC Metoprolol Succinate (Toprol Xl) 25 mg DAILY PO Last administered on 07/25/18 08:26; Start 07/24/18 at 09:00 Niacin (Slo-Niacin) 500 mg QHS PO Last administered on 07/24/18 20:42; Start 07/24/18 at 21:00 Tamsulosin HCl (Flomax) 0.4 mg HS PO Last administered on 07/24/18 20:42; Start 07/24/18 at 21:00 Acetaminophen/ Codeine Phosphate (Tylenol #3) 1 tab Q6HRS PRN PO PAIN; Start at 09:00 Amlodipine Besylate (Norvasc) 5 mg DAILY PO Last administered on 07/25/18 08: 25; Start 07/24/18 at 09:00 Aspirin (Children'S Aspirin) 81 mg DAILYWBKFT PO Last administered on 08:25; Start 07/24/18 at 09:00 Atorvastatin Calcium (Lipitor) 40 mg QHS PO Last administered on 07/24/18 20: 42; Start 07/24/18 at 21:00 Vitamin D (Vitamin D3) 5,000 unit DAILY PO Last administered on 07/25/18 08:25 ; Start 07/24/18 at 09:00 Non-Formulary Medication (Dulaglutide (Trulicity)) 1.5 mg DAILY SQ ; Start 07/24 at 09:00; Status UNV Glimepiride (Amaryl) 1 mg BID PO Last administered on 07/24/18 20:42; Start at 09:00 Insulin Glargine (Lantus) 40 units QHS SQ Last administered on 07/24/18 20:55 ; Start 07/24/18 at 21:00 Lactobacillus Rhamnosus (Culturelle) 1 cap BID PO Last administered on 08:25; Start 07/24/18 at 09:00 Levothyroxine Sodium (Synthroid) 50 mcg DAILY06 PO Last administered on 06:24; Start 07/24/18 at 11:00 Multivitamins/ Calcium (Thera-M Plus) 1 tab DAILY PO Last administered on 08:25; Start 07/24/18 at 09:00 Furosemide (Lasix) 40 mg DAILY PO Last administered on 07/24/18 10:39; Start 07/24/18 at 09:00; Stop 07/24/18 at 16:15; Status DC Insulin Human Lispro (HumaLOG) 0-5 UNITS TIDWMEALS SQ Last administered on 07/24 17:25; Start 07/24/18 at 17:00 Dextrose 12.5 gm PRN Q15MIN PRN IV SEE COMMENTS; Start 07/24/18 at 12:45 Furosemide (Lasix) 40 mg DAILY IVP Last administered on 07/25/18 08:26; Start 07/25/18 at 09:00 Amoxicillin/ Clavulanate Potassium (Augmentin 500/ 125mg) 1 tab BID PO Last administered on 07/25/18 08:26; Start 07/24/18 at 21:00; Stop 08/21/18 at 20:59 Active Scripts Active Humalog (Insulin Lispro) 100 Unit/1 Ml Insuln.pen 0 Units SQ TIDWMEALS Feosol (Ferrous Sulfate) 325 Mg Tablet 325 Mg PO DAILYWBKFT 30 Days Reported Zosyn 2.25 Gram Vial (Piperacillin Sodium/Tazobactam) 2.25 Gm Vial 2.25 Gm IV Q6HRS Trulicity (Dulaglutide) 1.5 Mg/0.5 Ml Pen.injctr 1.5 Mg SQ DAILY Tarsha Novakostar (Insulin Glargine,Hum.rec.anlog) 300 Unit/1 Ml Insuln.pen 40 Unit SQ HS Flomax (Tamsulosin Hcl) 0.4 Mg Cap.er.24h 1 Cap PO HS Niaspan (Niacin) 500 Mg Tab.er.24h 1 Tab PO QHS Multivitamins (Multivitamin) 1 Each Tablet 1 Tab PO DAILY Metoprolol Succinate ( Xl ) (Metoprolol Succinate) 25 Mg Tab.er.24h 1 Tab PO DAILY Levothyroxine Sodium 50 Mcg Tablet 1 Tab PO DAILY06 Acidophilus (Lactobacillus Acidophilus) 1 Each Capsule 1 Each PO BID Hydrochlorothiazide Tablet (Hydrochlorothiazide) 25 Mg Tablet 25 Mg PO DAILY Glimepiride 1 Mg Tablet 1 Tab PO BID Clopidogrel (Clopidogrel Bisulfate) 75 Mg Tablet 1 Tab PO DAILY Vitamin D (Cholecalciferol (Vitamin D3)) 2,000 Unit Capsule 5,000 Unit PO DAILY Atorvastatin Calcium 40 Mg Tablet 1 Tab PO QHS Aspirin 81 Mg Tab.chew 81 Mg PO DAILY Amlodipine Besylate 5 Mg Tablet 1 Tab PO DAILY Tylenol With Codeine #3 Tablet (Acetaminophen With Codeine) 1 Each Tablet 1 Tab PO Q6HRS PRN Allergies: Coded Allergies: No Known Drug Allergies (Unverified , 07/24/18) Review of System as per hpi, otherwise he denies complaints. General: Alert, Oriented X3, Cooperative, No acute distress HEENT: Atraumatic Lungs: Other (bibasilar crackles) Heart: Normal S1, Normal S2, Other (no gallops, clicks or rubs, +murmur) Abdomen: Normal bowel sounds, Soft Extremities: No cyanosis, Normal pulses, Other (+3 denisse bilaterally) Neuro: Normal speech, Strength at 5/5 X4 ext Psych/Mental Status: Mental status NL, Mood NL VITALS Vital Signs Date Time Temp Pulse Resp B/P (MAP) Pulse Ox O2 Delivery O2 Flow Rate FiO2 07/25/18 10:53 97.3 60 24 138/59 (85) 96 Nasal Cannula 3.0 Labs Laboratory Tests Test 07/24/18 02:25 07/24/18 07:48 07/24/18 12:01 07/24/18 16:28 White Blood Count 8.6 x10^3/uL (4.0-11.0) Red Blood Count 3.35 x10^6/uL (4.30-5.70) Hemoglobin 9.9 g/dL (13.0-17.5) Hematocrit 31.2 % (39.0-53.0) Mean Corpuscular Volume 93 fL (79-100) Mean Corpuscular Hemoglobin 30 pg (25-35) Mean Corpuscular Hemoglobin Concent 32 g/dL (31-37) Red Cell Distribution Width 19.0 % (11.5-14.5) Platelet Count 173 x10^3/uL (140-400) Neutrophils (%) (Auto) 75 % (31-73) Lymphocytes (%) (Auto) 10 % (24-48) Monocytes (%) (Auto) 11 % (0-9) Eosinophils (%) (Auto) 4 % (0-3) Basophils (%) (Auto) 1 % (0-3) Neutrophils # (Auto) 6.4 x10^3uL (1.8-7.7) Lymphocytes # (Auto) 0.8 x10^3/uL (1.0-4.8) Monocytes # (Auto) 1.0 x10^3/uL (0.0-1.1) Eosinophils # (Auto) 0.3 x10^3/uL (0.0-0.7) Basophils # (Auto) 0.1 x10^3/uL (0.0-0.2) Prothrombin Time 11.6 SEC (9.4-11.4) Prothromb Time International Ratio 1.2 (0.9-1.1) Sodium Level 143 mmol/L (136-145) Potassium Level 4.4 mmol/L (3.5-5.1) Chloride Level 107 mmol/L (98-107) Carbon Dioxide Level 27 mmol/L (21-32) Anion Gap 9 (6-14) Blood Urea Nitrogen 19 mg/dL (8-26) Creatinine 1.6 mg/dL (0.7-1.3) Estimated GFR (Cockcroft-Gault) 42.6 BUN/Creatinine Ratio 12 (6-20) Glucose Level 220 mg/dL (70-99) Calcium Level 9.0 mg/dL (8.5-10.1) Magnesium Level 2.0 mg/dL (1.8-2.4) Total Bilirubin 1.2 mg/dL (0.2-1.0) Aspartate Amino Transf (AST/SGOT) 49 U/L (15-37) Alanine Aminotransferase (ALT/SGPT) 36 U/L (16-63) Alkaline Phosphatase 347 U/L (46-116) Troponin I Quantitative < 0.017 ng/mL (0-0.055) 0.029 ng/mL (0-0.055) TZ-Mct-R-Type Natriuretic Peptide 6836 pg/mL (0-124) Total Protein 6.9 g/dL (6.4-8.2) Albumin 2.6 g/dL (3.4-5.0) Albumin/Globulin Ratio 0.6 (1.0-1.7) Lipase 52 U/L (73-393) Glucose (Fingerstick) 196 mg/dL (70-99) 201 mg/dL (70-99) Test 07/24/18 17:23 07/24/18 20:39 07/24/18 20:45 07/25/18 06:20 Glucose (Fingerstick) 230 mg/dL (70-99) 258 mg/dL (70-99) Troponin I Quantitative 0.030 ng/mL (0-0.055) White Blood Count 8.2 x10^3/uL (4.0-11.0) Red Blood Count 3.00 x10^6/uL (4.30-5.70) Hemoglobin 9.2 g/dL (13.0-17.5) Hematocrit 27.7 % (39.0-53.0) Mean Corpuscular Volume 92 fL (79-100) Mean Corpuscular Hemoglobin 31 pg (25-35) Mean Corpuscular Hemoglobin Concent 33 g/dL (31-37) Red Cell Distribution Width 18.1 % (11.5-14.5) Platelet Count 184 x10^3/uL (140-400) Neutrophils (%) (Auto) 68 % (31-73) Lymphocytes (%) (Auto) 13 % (24-48) Monocytes (%) (Auto) 13 % (0-9) Eosinophils (%) (Auto) 5 % (0-3) Basophils (%) (Auto) 1 % (0-3) Neutrophils # (Auto) 5.6 x10^3uL (1.8-7.7) Lymphocytes # (Auto) 1.1 x10^3/uL (1.0-4.8) Monocytes # (Auto) 1.1 x10^3/uL (0.0-1.1) Eosinophils # (Auto) 0.4 x10^3/uL (0.0-0.7) Basophils # (Auto) 0.1 x10^3/uL (0.0-0.2) Sodium Level 143 mmol/L (136-145) Potassium Level 3.5 mmol/L (3.5-5.1) Chloride Level 108 mmol/L (98-107) Carbon Dioxide Level 25 mmol/L (21-32) Anion Gap 10 (6-14) Blood Urea Nitrogen 16 mg/dL (8-26) Creatinine 1.6 mg/dL (0.7-1.3) Estimated GFR (Cockcroft-Gault) 42.6 BUN/Creatinine Ratio 10 (6-20) Glucose Level 66 mg/dL (70-99) Calcium Level 9.0 mg/dL (8.5-10.1) Magnesium Level 1.6 mg/dL (1.8-2.4) Total Bilirubin 1.0 mg/dL (0.2-1.0) Aspartate Amino Transf (AST/SGOT) 44 U/L (15-37) Alanine Aminotransferase (ALT/SGPT) 32 U/L (16-63) Alkaline Phosphatase 277 U/L (46-116) Total Protein 6.7 g/dL (6.4-8.2) Albumin 2.4 g/dL (3.4-5.0) Albumin/Globulin Ratio 0.6 (1.0-1.7) Test 07/25/18 07:16 07/25/18 07:42 07/25/18 11:14 Glucose (Fingerstick) 59 mg/dL (70-99) 100 mg/dL (70-99) 110 mg/dL (70-99) Images CXR - IMPRESSION: Moderate bilateral pulmonary infiltrates suggesting pulmonary edema, with a moderate amount of associated bilateral pleural fluid. Assessment/Plan 1. acute on chronic diastolic heart failure - resume home meds. Continue IV lasix 24hours then reassess. accurate I/Os, daily weight. 2. Known prior coronary artery disease - angina free 3. recent cryptogenic stroke - event monitoring ordered after TIA but not completed by patient. consider loop implantation as outpatient. Otherwise reorder MCT. 4. Anemia - Hgb stable. Required PRBCs last admission. 5. Renal insufficiency - Cr appears to be baseline ~1.5 - 1.7 6. protein malnutrition - per PCP add albumin to lasix 7. PAD s/p recent LICENSED THERAPIST bilateral lower extremities 8. s/p recent amputation toes secondary to gangrene and osteomyelitis ROMAINE PEREZ HORSE GROOMER Jul 25, 2018 12:47
[2018-07-25] MEDS: ALBUMIN HUMAN 25% 50 ML IV SCH (15:03)
[2018-07-25 15:23] VITALS: BP 146/75
--- NOTE | 2018-07-25 15:26 | CARD ---
MR#: [id number] Date of Study: 07/25/2018 Ordering Physician: ROMAINE PEREZ, Referring Physician: ABDON MABRY Tech: Mary Coyle RDCS APPROVED REPORT EXAM: Two-dimensional and M-mode echocardiogram with Doppler and color Doppler. Other Information Quality : Fair INDICATION Congestive Heart Failure 2D DIMENSIONS RVDd3.6 (2.9-3.5cm)Left Atrium(2D)3.4 (1.6-4.0cm) IVSd1.0 (0.7-1.1cm)Aortic Root(2D)2.4 (2.0-3.7cm) LVDd4.4 (3.9-5.9cm)LVOT Diameter2.3 (1.8-2.4cm) PWd1.0 (0.7-1.1cm)LVDs2.7 (2.5-4.0cm) FS (%) 30.0 %SV59.7 ml LVEF(%)60.0 (>50%) M-Mode DIMENSIONS Aortic Cusp Exc2.26 (1.5-2.0cm) Aortic Valve AoV Peak Saúl.111.6cm/sAoV VTI22.9cm AO Peak GR.5.0mmHgAO Mean GR.3mmHg MYLENE (VTI)2.89cm2 Mitral Valve MV E Ojawnxwi128.8cm/sMV DECEL [id number] MV A Wyjbvykv570.4cm/sE/A Ratio0.7 Tricuspid Valve TR P. Dzxsqzrm033ug/sRAP [id number] TR Peak Gr.40cyCsUESK85glIl LEFT VENTRICLE The left ventricle is normal size. There is normal left ventricular wall thickness. The left ventricu lar systolic function is normal. The Ejection Fraction is 55-60%. Transmitral Doppler flow pattern is Grade I-abnormal relaxation pattern. RIGHT VENTRICLE The right ventricle is normal size. The right ventricular systolic function is normal. ATRIA The left atrium size is normal. The right atrium size is normal. The interatrial septum is intact wit h no evidence for an atrial septal defect or patent foramen ovale as noted on 2-D or Doppler imaging. AORTIC VALVE The aortic valve is moderately thickened but opens well. Doppler and Color Flow revealed mild aortic regurgitation. There is no significant aortic valvular stenosis. MITRAL VALVE The mitral valve is calcified but opens well. There is no evidence of mitral valve prolapse. There is no mitral valve stenosis. Doppler and Color-flow revealed trace to mild mitral regurgitation. TRICUSPID VALVE The tricuspid valve is normal in structure and function. Doppler and Color Flow revealed mild tricusp id regurgitation. There is moderate pulmonary hypertension. The PA pressure was estimated at 45 mmHg. There is no tricuspid valve stenosis. PULMONIC VALVE The pulmonic valve is not well visualized. Doppler and Color Flow revealed no pulmonic valvular regur gitation. There is no pulmonic valvular stenosis. GREAT VESSELS The aortic root is normal in size. The ascending aorta is normal in size. The IVC is dilated and unre sponsive. PERICARDIAL EFFUSION There is small left pleural effusion. There is no evidence of significant pericardial effusion. Critical Notification Critical Value: No <Conclusion> The left ventricular systolic function is normal. The Ejection Fraction is 55-60%. Transmitral Doppler flow pattern is Grade I-abnormal relaxation pattern. Mild aortic regurgitation. Trace to mild mitral regurgitation. Mild tricuspid regurgitation. The PA pressure was estimated at 45 mmHg. There is no evidence of significant pericardial effusion. Signed by : Deep Spaulding, Electronically Approved : 07/25/2018 15:26:42
[2018-07-25 19:18] VITALS: BP 138/69
[2018-07-25] MEDS: INSULIN GLARGINE 300 UNITS/3 ML INSULN.PEN. SQ SCH (21:00)
[2018-07-25] MEDS: TAMSULOSIN 0.4 MG CAP.ER.24H. PO SCH (21:27)
[2018-07-25] MEDS: NIACIN ER 500 MG TABLET.ER PO SCH (21:27)
[2018-07-25] MEDS: ATORVASTATIN CALCIUM 20 MG TABLET PO SCH (21:28)
[2018-07-25] MEDS: FUROSEMIDE 40 MG/4 ML VIAL IVP SCH (21:28)
--- NOTE | 2018-07-25 21:50 | PN ---
DATE: 07/25/2018 SUBJECTIVE: The patient is resting, slightly propped up in bed, continued to complain of shortness of breath. He saturates dramatically when he gets off his oxygen mask. Unfortunately, he does not tolerate nasal cannula and he does not tolerate even the Venturi mask. He has had 3 sets of cardiac enzymes showed that the troponin was slightly elevated. No evidence of myocardial infarction. PHYSICAL EXAMINATION: GENERAL: When I examined him, he looked pale, no jaundice, cyanosis, or thyromegaly. No jugular venous distension. Marked bilateral lower limb edema. VITAL SIGNS: His heart rate was 60, blood pressure was 138/59, temperature was 97.3, respiratory rate was 24, and oxygen saturation was 96% on 3 liters of oxygen by nasal cannula. HEAD, EYES, EARS, NOSE, AND THROAT: Showed normocephalic, atraumatic. NECK: Supple. HEART: Showed normal first and second heart sounds with no gallop, rub, or murmur. CHEST: Showed central trachea, equal bilateral expansion, air entry, vesicular sounds, bilateral basal crepitation. I could not appreciate any rhonchi. ABDOMEN: Distended, soft, nontender. NEUROLOGIC: He is awake, alert, very anxious, restless at times. 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 His intake was 1000, output was 600. LABORATORY DATA: As of this morning showed a serum sodium 143, potassium 3.5, chloride 108, bicarbonate 25, anion gap of 10, BUN 16, creatinine 1.6, estimated GFR was 42 mL per minute. His glucose was 66, calcium was 9. Total bilirubin and ALT normal. AST and alkaline phosphatase slightly elevated. Total protein was 6.7, albumin was 2.4, his magnesium is low at 1.6. His white cell count was 8200, hemoglobin 9.7, hematocrit 27, MCV 92, and platelet count of 184,000. ASSESSMENT: 1. Acute on chronic diastolic heart failure. The patient continued to have bilateral pleural effusion. 2. The patient is known to have coronary artery disease; however, he is now chest pain free. 3. Chronic renal failure, with stable creatinine around 1.6. 4. Severe protein-calorie malnutrition. 5. Peripheral arterial disease, status post recent revascularization, bilateral lower extremities. 6. 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 He finished his antibiotic about 4 days ago and was discharged home to continue with oral Augmentin. PLAN: To continue with IV Lasix. I will add albumin 25 gram twice a day and Lasix twice a day. We will monitor his electrolytes closely. Probably require some potassium supplement. ABDON MABRY MD DR: KHADAR/shahla JOB#: [id number] / [id number]
[2018-07-25 23:14] VITALS: BP 148/66
[2018-07-26 05:48] VITALS: BP 153/69
[2018-07-26] MEDS: LEVOTHYROXINE 50 MCG TABLET PO SCH (05:54)
[2018-07-26] MEDS: INSULIN LISPRO 300 UNITS/3 ML INSULN.PEN. SQ SCH ×3 (08:00→17:31)
[2018-07-26] MEDS: NON FORMULARY ITEM (Dulaglutide (Trulicity) 1.5 MG) SQ SCH (09:00)
[2018-07-26] MEDS: LACTOBACILLUS RHAMNOSUS GG 1 CAPSULE. PO SCH ×2 (09:12→22:11)
[2018-07-26] MEDS: GLIMEPIRIDE 2 MG TABLET PO SCH ×2 (09:13→22:10)
[2018-07-26] MEDS: amLODIPine BESYLATE 5 MG TABLET PO SCH (09:13)
[2018-07-26] MEDS: CLOPIDOGREL BISULFATE 75 MG TABLET PO SCH (09:13)
[2018-07-26] MEDS: POTASSIUM CHLORIDE 20 MEQ TABLET.ER. PO SCH (09:13)
[2018-07-26] MEDS: METOPROLOL SUCC 24HR ER 25 MG TAB.ER.24H. PO SCH (09:14)
[2018-07-26] MEDS: MULTIVITAMIN with MINERAL TABLET. PO SCH (09:14)
[2018-07-26] MEDS: FUROSEMIDE 40 MG/4 ML VIAL IVP SCH ×2 (09:14→15:30)
[2018-07-26] MEDS: FERROUS SULFATE 325 MG TABLET. PO SCH (09:14)
[2018-07-26] MEDS: ASPIRIN 81 MG TAB.CHEW PO SCH (09:14)
[2018-07-26] MEDS: AMOXICILLIN/K CLAV 500/125MG TABLET. PO SCH ×2 (09:15→22:10)
[2018-07-26] MEDS: CHOLECALCIFEROL (VITAMIN D3) 1,000 UNIT TABLET PO SCH (09:15)
[2018-07-26] MEDS: ALBUMIN HUMAN 25% 50 ML IV SCH ×2 (09:24→15:30)
--- NOTE | 2018-07-26 10:27 | PDOC ---
ROMAINE PEREZ EXTRACT OPERATOR 07/26/18 1027: PROGRESS NOTES Assessment 1. acute on chronic diastolic heart failure - resume home meds. Continue IV lasix with albumin. accurate I/Os, daily weights. 2. Known prior coronary artery disease - angina free. trop 0.030 peak, continue medical mgmt 3. recent cryptogenic stroke - event monitoring ordered after TIA but not completed by patient. consider loop implantation as outpatient. Otherwise reorder MCT on discharge. 4. Anemia - Hgb stable. 5. Renal insufficiency - Cr appears to be baseline ~1.5 - 1.7, stable today at 1.6 6. protein malnutrition - per PCP 7. PAD s/p recent [employer] bilateral lower extremities 8. s/p recent amputation toes secondary to gangrene and osteomyelitis Subjective c/o not alot of sleep as up to bathroom frequently last night. remains short of breath (unsure if improved) and edematous. no chest pain. Objective Vital Signs Date Time Temp Pulse Resp B/P (MAP) Pulse Ox O2 Delivery O2 Flow Rate FiO2 07/26/18 09:14 86 153/69 07/26/18 08:11 Venturi Mask 3.0 07/26/18 06:55 93 07/26/18 05:55 20 07/26/18 05:48 98.6 Intake and Output 07/26/18 06:59 Intake Total 650 ml Output Total 950 ml Balance -300 ml Intake Oral 600 ml IV Total 50 ml Output Urine Total 950 ml # Voids 1 Physical Exam gen: awake, alert, NAD CV: RRR, no gallops, clicks or rubs lungs: bibasilar crackles abd: soft, nontender, bowel sounds present ext: edema unchanged. Review of Relevant I have reviewed the following items cathy (where applicable) has been applied. Labs Laboratory Tests Test 07/24/18 12:01 07/24/18 16:28 07/24/18 17:23 07/24/18 20:39 Glucose (Fingerstick) 201 mg/dL (70-99) 230 mg/dL (70-99) 258 mg/dL (70-99) Troponin I Quantitative 0.029 ng/mL (0-0.055) Test 07/24/18 20:45 07/25/18 06:20 07/25/18 07:16 4/16/19 07:42 Troponin I Quantitative 0.030 ng/mL (0-0.055) White Blood Count 8.2 x10^3/uL (4.0-11.0) Red Blood Count 3.00 x10^6/uL (4.30-5.70) Hemoglobin 9.2 g/dL (13.0-17.5) Hematocrit 27.7 % (39.0-53.0) Mean Corpuscular Volume 92 fL (79-100) Mean Corpuscular Hemoglobin 31 pg (25-35) Mean Corpuscular Hemoglobin Concent 33 g/dL (31-37) Red Cell Distribution Width 18.1 % (11.5-14.5) Platelet Count 184 x10^3/uL (140-400) Neutrophils (%) (Auto) 68 % (31-73) Lymphocytes (%) (Auto) 13 % (24-48) Monocytes (%) (Auto) 13 % (0-9) Eosinophils (%) (Auto) 5 % (0-3) Basophils (%) (Auto) 1 % (0-3) Neutrophils # (Auto) 5.6 x10^3uL (1.8-7.7) Lymphocytes # (Auto) 1.1 x10^3/uL (1.0-4.8) Monocytes # (Auto) 1.1 x10^3/uL (0.0-1.1) Eosinophils # (Auto) 0.4 x10^3/uL (0.0-0.7) Basophils # (Auto) 0.1 x10^3/uL (0.0-0.2) Sodium Level 143 mmol/L (136-145) Potassium Level 3.5 mmol/L (3.5-5.1) Chloride Level 108 mmol/L (98-107) Carbon Dioxide Level 25 mmol/L (21-32) Anion Gap 10 (6-14) Blood Urea Nitrogen 16 mg/dL (8-26) Creatinine 1.6 mg/dL (0.7-1.3) Estimated GFR (Cockcroft-Gault) 42.6 BUN/Creatinine Ratio 10 (6-20) Glucose Level 66 mg/dL (70-99) Calcium Level 9.0 mg/dL (8.5-10.1) Magnesium Level 1.6 mg/dL (1.8-2.4) Total Bilirubin 1.0 mg/dL (0.2-1.0) Aspartate Amino Transf (AST/SGOT) 44 U/L (15-37) Alanine Aminotransferase (ALT/SGPT) 32 U/L (16-63) Alkaline Phosphatase 277 U/L (46-116) Total Protein 6.7 g/dL (6.4-8.2) Albumin 2.4 g/dL (3.4-5.0) Albumin/Globulin Ratio 0.6 (1.0-1.7) Glucose (Fingerstick) 59 mg/dL (70-99) 100 mg/dL (70-99) Test 07/25/18 11:14 07/25/18 16:44 07/25/18 21:14 07/26/18 08:01 Glucose (Fingerstick) 110 mg/dL (70-99) 93 mg/dL (70-99) 109 mg/dL (70-99) 80 mg/dL (70-99) Medications Current Medications Albuterol Sulfate (Ventolin) 2.5 mg 1X ONCE NEB Last administered on at 03:01; Start 07/24/18 at 03:00; Stop 07/24/18 at 03:01; Status DC Furosemide (Lasix) 40 mg 1X ONCE IVP Last administered on 07/24/18at 03:11; Start 07/24/18 at 03:30; Stop 07/24/18 at 03:31; Status DC Ondansetron HCl (Zofran) 4 mg PRN Q4HRS PRN IV NAUSEA/VOMITING; Start 07/24/18 at 04:00; Stop 07/25/18 at 03:59; Status DC Acetaminophen (Tylenol) 650 mg PRN Q4HRS PRN PO FEVER; Start 07/24/18 at 04:00 ; Stop 07/25/18 at 03:59; Status DC Nitroglycerin (Nitrostat) 0.4 mg PRN Q5MIN PRN SL CHEST PAIN; Start 07/24/18 at 04:00; Stop 07/25/18 at 03:59; Status DC Albuterol/ Ipratropium (Duoneb) 3 ml RTQID NEB Last administered on 07/25/18at 05:26; Start 07/24/18 at 08:00; Stop 07/25/18 at 07:59; Status DC Clopidogrel Bisulfate (Plavix) 75 mg DAILY PO Last administered on 07/26/18 09 :13; Start 07/24/18 at 09:00 Ferrous Sulfate (Feosol) 325 mg DAILYWBKFT PO Last administered on 07/26/18at 09 :14; Start 07/24/18 at 09:00 Insulin Human Lispro (HumaLOG) TIDWMEALS SQ ; Start 07/24/18 at 12:00; Stop at 12:38; Status DC Metoprolol Succinate (Toprol Xl) 25 mg DAILY PO Last administered on 07/26/18 09:14; Start 07/24/18 at 09:00 Niacin (Slo-Niacin) 500 mg QHS PO Last administered on 07/25/18 21:27; Start 07/24/18 at 21:00 Tamsulosin HCl (Flomax) 0.4 mg HS PO Last administered on 07/25/18 21:27; Start 07/24/18 at 21:00 Acetaminophen/ Codeine Phosphate (Tylenol #3) 1 tab Q6HRS PRN PO PAIN Last administered on 07/26/18 05:55; Start 07/24/18 at 09:00 Amlodipine Besylate (Norvasc) 5 mg DAILY PO Last administered on 07/26/18 09: 13; Start 07/24/18 at 09:00 Aspirin (Children'S Aspirin) 81 mg DAILYWBKFT PO Last administered on at 09:14; Start 07/24/18 at 09:00 Atorvastatin Calcium (Lipitor) 40 mg QHS PO Last administered on 07/25/18at 21: 28; Start 07/24/18 at 21:00 Vitamin D (Vitamin D3) 5,000 unit DAILY PO Last administered on 07/26/18at 09:15 ; Start 07/24/18 at 09:00 Non-Formulary Medication (Dulaglutide (Trulicity)) 1.5 mg DAILY SQ ; Start 07/24 at 09:00; Status UNV Glimepiride (Amaryl) 1 mg BID PO Last administered on 07/26/18 09:13; Start at 09:00 Insulin Glargine (Lantus) 40 units QHS SQ Last administered on 07/24/18at 20:55 ; Start 07/24/18 at 21:00 Lactobacillus Rhamnosus (Culturelle) 1 cap BID PO Last administered on at 09:12; Start 07/24/18 at 09:00 Levothyroxine Sodium (Synthroid) 50 mcg DAILY06 PO Last administered on at 05:54; Start 07/24/18 at 11:00 Multivitamins/ Calcium (Thera-M Plus) 1 tab DAILY PO Last administered on at 09:14; Start 07/24/18 at 09:00 Furosemide (Lasix) 40 mg DAILY PO Last administered on 07/24/18at 10:39; Start 07/24/18 at 09:00; Stop 07/24/18 at 16:15; Status DC Insulin Human Lispro (HumaLOG) 0-5 UNITS TIDWMEALS SQ Last administered on 07/24at 17:25; Start 07/24/18 at 17:00 Dextrose 12.5 gm PRN Q15MIN PRN IV SEE COMMENTS; Start 07/24/18 at 12:45 Furosemide (Lasix) 40 mg DAILY IVP Last administered on 07/25/18at 08:26; Start 07/25/18 at 09:00; Stop 07/25/18 at 13:28; Status DC Amoxicillin/ Clavulanate Potassium (Augmentin 500/ 125mg) 1 tab BID PO Last administered on 07/26/18at 09:15; Start 07/24/18 at 21:00; Stop 08/21/18 at 20:59 Furosemide (Lasix) 40 mg BID IVP Last administered on 07/26/18at 09:14; Start at 21:00 Albumin Human 50 ml @ 50 mls/hr BID IV Last administered on 07/26/18at 09:24; Start 07/25/18 at 21:00 Potassium Chloride (Klor-Con) 20 meq DAILYWBKFT PO Last administered on at 09:13; Start 07/26/18 at 08:00 Active Scripts Active Humalog (Insulin Lispro) 100 Unit/1 Ml Insuln.pen 0 Units SQ TIDWMEALS Feosol (Ferrous Sulfate) 325 Mg Tablet 325 Mg PO DAILYWBKFT 30 Days Reported Zosyn 2.25 Gram Vial (Piperacillin Sodium/Tazobactam) 2.25 Gm Vial 2.25 Gm IV Q6HRS Trulicity (Dulaglutide) 1.5 Mg/0.5 Ml Pen.injctr 1.5 Mg SQ DAILY Toujuan manuel Solostar (Insulin Glargine,Hum.rec.anlog) 300 Unit/1 Ml Insuln.pen 40 Unit SQ HS Flomax (Tamsulosin Hcl) 0.4 Mg Cap.er.24h 1 Cap PO HS Niaspan (Niacin) 500 Mg Tab.er.24h 1 Tab PO QHS Multivitamins (Multivitamin) 1 Each Tablet 1 Tab PO DAILY Metoprolol Succinate ( Xl ) (Metoprolol Succinate) 25 Mg Tab.er.24h 1 Tab PO DAILY Levothyroxine Sodium 50 Mcg Tablet 1 Tab PO DAILY06 Acidophilus (Lactobacillus Acidophilus) 1 Each Capsule 1 Each PO BID Hydrochlorothiazide Tablet (Hydrochlorothiazide) 25 Mg Tablet 25 Mg PO DAILY Glimepiride 1 Mg Tablet 1 Tab PO BID Clopidogrel (Clopidogrel Bisulfate) 75 Mg Tablet 1 Tab PO DAILY Vitamin D (Cholecalciferol (Vitamin D3)) 2,000 Unit Capsule 5,000 Unit PO DAILY Atorvastatin Calcium 40 Mg Tablet 1 Tab PO QHS Aspirin 81 Mg Tab.chew 81 Mg PO DAILY Amlodipine Besylate 5 Mg Tablet 1 Tab PO DAILY Tylenol With Codeine #3 Tablet (Acetaminophen With Codeine) 1 Each Tablet 1 Tab PO Q6HRS PRN Vitals/I & O Vital Sign - Last 24 Hours 07/25/18 07/25/18 07/25/18 07/25/18 10:53 15:23 19:18 19:44 Temp 97.3 98.1 Pulse 60 80 87 Resp 24 20 24 B/P (MAP) 138/59 (85) 146/75 (98) 138/69 (92) Pulse Ox 96 93 91 O2 Delivery Nasal Cannula Nasal Cannula Venturi Mask Venturi Mask O2 Flow Rate 3.0 3.0 3.0 3.0 07/25/18 07/26/18 07/26/18 07/26/18 23:14 05:48 05:55 06:55 Temp 98.1 98.6 Pulse 82 86 Resp 24 24 20 B/P (MAP) 148/66 (93) 153/69 (97) Pulse Ox 93 93 93 O2 Delivery Venturi Mask Venturi Mask Venturi Mask Venturi Mask O2 Flow Rate 3.0 3.0 4.0 3.0 07/26/18 07/26/18 07/26/18 08:11 09:13 09:14 Pulse 86 86 B/P (MAP) 153/69 153/69 O2 Delivery Venturi Mask O2 Flow Rate 3.0 Intake and Output 07/25/18 07/25/18 07/26/18 14:59 22:59 06:59 Intake Total 360 ml 290 ml Output Total 950 ml Balance 360 ml -660 ml ELVIRA HAJI MD 07/26/18 1609: PROGRESS NOTES Review of Relevant Pt. seen and examined. Agree with above [employer] note. Supportive care. poor nursing home prognosis. Continue diuresis as tolerated. Recurrent HF admissions noted. ROMAINE PEREZ EXTRACT OPERATOR Jul 26, 2018 10:27 ELVIRA HAJI MD Jul 26, 2018 16:09
[2018-07-26 11:09] VITALS: BP 129/73
[2018-07-26 14:54] VITALS: BP 145/74
[2018-07-26 20:18] VITALS: BP 137/67
[2018-07-26] MEDS: NIACIN ER 500 MG TABLET.ER PO SCH (22:11)
[2018-07-26] MEDS: TAMSULOSIN 0.4 MG CAP.ER.24H. PO SCH (22:11)
[2018-07-26] MEDS: ATORVASTATIN CALCIUM 20 MG TABLET PO SCH (22:11)
[2018-07-26] MEDS: INSULIN GLARGINE 300 UNITS/3 ML INSULN.PEN. SQ SCH (22:23)
--- NOTE | 2018-07-26 22:25 | PN ---
DATE: 07/26/2018 SUBJECTIVE: The patient is sitting comfortably in his recliner, in no apparent respiratory distress. He continued to have desaturates quickly without oxygen, unfortunately does not tolerate nasal cannulas and he does not keep the facemask long time. We did start him on IV Lasix and human albumin. PHYSICAL EXAMINATION: GENERAL: When I examined him, he looked pale, but no jaundice, cyanosis, or thyromegaly. No jugular venous distention. No limb edema. VITAL SIGNS: Her heart rate was 74, blood pressure was 145/74, temperature was 97.9, respiratory rate 24, and oxygen saturation was 93% on 4 liters of oxygen by facemask. HEAD, EYES, EARS, NOSE AND THROAT: Showed normocephalic, atraumatic. NECK: Supple. HEART: Showed normal first and second heart sounds. No gallop or murmur. CHEST: Shows central trachea, equal bilateral expansion, air entry, vesicular sounds with bilateral basal crepitation. I could not appreciate any rhonchi. ABDOMEN: Distended, soft, nontender. NEUROLOGIC: He is awake, alert, responding appropriately. All her cranial nerves intact. He ambulates with a walker with standby assist. His intake was 1000 and output was 600. LABORATORY DATA: As of yesterday, his white cell count was 8200, hemoglobin 9.2, hematocrit 27.7, MCV 92, and platelet count of 184,000. His chemistry as of yesterday showed a serum sodium 143, potassium 3.5, chloride 108, bicarbonate 25, anion gap of 10, BUN 16, creatinine 1.6, estimated GFR was 42 mL per minute. His total protein was 6.7, albumin 2.4. ASSESSMENT: 1. [id number] diastolic congestive heart failure. The patient continued to have bilateral pleural effusion, marked bilateral lower limb edema. 2. Coronary artery disease, chest pain free. 3. Chronic renal failure, stable creatinine around 1.6, severe protein-calorie malnutrition with serum albumin is 2.4 mg/dL. 4. 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 In fact he finished his antibiotic about 5 days ago and was discharged home to continue with oral Augmentin. PLAN: To continue with the IV Lasix and we continued also 25 grams twice a day of human albumin. We will monitor his weight closely as well as electrolytes and replenish with potassium if needed. ABDON MABRY MD DR: KHADAR/shahla JOB#: [id number] / [id number]
[2018-07-27] VITALS (7 sets, daily range): BP systolic 109–151; BP diastolic 58–77
[2018-07-27] MEDS ORDERED: DEXTROSE ORAL GEL 15 GM TUBE. PO PRN (05:07)
[2018-07-27] MEDS: LEVOTHYROXINE 50 MCG TABLET PO SCH (05:42)
[2018-07-27 06:13] LABS: HEMATOCRIT 29.5 % (39.0-53.0); HEMOGLOBIN 9.6 g/dL (13.0-17.5)
[2018-07-27 06:26] LABS: CALCIUM 9.2 mg/dL (8.5-10.1); CREATININE 1.7 mg/dL (0.7-1.3); GFR 39.7; POTASSIUM 3.8 mmol/L (3.5-5.1)
[2018-07-27] MEDS: INSULIN LISPRO 300 UNITS/3 ML INSULN.PEN. SQ SCH ×3 (08:00→17:20)
[2018-07-27] MEDS: metOLazone 5 MG TABLET PO SCH (08:14)
[2018-07-27] MEDS: CHOLECALCIFEROL (VITAMIN D3) 1,000 UNIT TABLET PO SCH (08:14)
[2018-07-27] MEDS: MULTIVITAMIN with MINERAL TABLET. PO SCH (08:15)
[2018-07-27] MEDS: LACTOBACILLUS RHAMNOSUS GG 1 CAPSULE. PO SCH ×2 (08:15→20:42)
[2018-07-27] MEDS: amLODIPine BESYLATE 5 MG TABLET PO SCH (08:15)
[2018-07-27] MEDS: ASPIRIN 81 MG TAB.CHEW PO SCH (08:15)
[2018-07-27] MEDS: POTASSIUM CHLORIDE 20 MEQ TABLET.ER. PO SCH (08:15)
[2018-07-27] MEDS: FERROUS SULFATE 325 MG TABLET. PO SCH (08:15)
[2018-07-27] MEDS: CLOPIDOGREL BISULFATE 75 MG TABLET PO SCH (08:15)
[2018-07-27] MEDS: METOPROLOL SUCC 24HR ER 25 MG TAB.ER.24H. PO SCH (08:15)
[2018-07-27] MEDS: ALBUMIN HUMAN 25% 50 ML IV SCH ×2 (08:16→14:13)
[2018-07-27] MEDS: FUROSEMIDE 40 MG/4 ML VIAL IVP SCH ×2 (08:16→14:13)
[2018-07-27] MEDS: AMOXICILLIN/K CLAV 500/125MG TABLET. PO SCH ×2 (08:16→20:42)
[2018-07-27] MEDS: NON FORMULARY ITEM (Dulaglutide (Trulicity) 1.5 MG) SQ SCH (08:20)
[2018-07-27] MEDS: GLIMEPIRIDE 2 MG TABLET PO SCH ×2 (08:20→20:42)
--- NOTE | 2018-07-27 08:53 | PDOC ---
PROGRESS NOTES Assessment duplicate Objective Vital Signs Date Time Temp Pulse Resp B/P (MAP) Pulse Ox O2 Delivery O2 Flow Rate FiO2 07/27/18 08:15 67 151/77 07/27/18 05:00 96.8 14 94 Venturi Mask 4.0 Intake and Output 07/27/18 07:00 Intake Total 680 ml Output Total 1200 ml Balance -520 ml Intake Oral 680 ml Output Urine Total 1200 ml # Voids 3 Review of Relevant I have reviewed the following items cathy (where applicable) has been applied. Labs Laboratory Tests Test 07/25/18 11:14 07/25/18 16:44 07/25/18 21:14 07/26/18 08:01 Glucose (Fingerstick) 110 mg/dL (70-99) 93 mg/dL (70-99) 109 mg/dL (70-99) 80 mg/dL (70-99) Test 07/26/18 11:19 07/26/18 16:08 07/26/18 22:09 07/27/18 02:29 Glucose (Fingerstick) 128 mg/dL (70-99) 168 mg/dL (70-99) 211 mg/dL (70-99) 39 mg/dL (70-99) Test 07/27/18 02:45 07/27/18 02:53 07/27/18 05:02 07/27/18 05:22 Glucose Level 138 mg/dL (70-99) Glucose (Fingerstick) 94 mg/dL (70-99) 53 mg/dL (70-99) 87 mg/dL (70-99) Test 07/27/18 05:35 07/27/18 05:46 07/27/18 06:03 07/27/18 06:30 Hemoglobin 9.6 g/dL (13.0-17.5) Hematocrit 29.5 % (39.0-53.0) Sodium Level 141 mmol/L (136-145) Potassium Level 3.8 mmol/L (3.5-5.1) Chloride Level 105 mmol/L (98-107) Carbon Dioxide Level 28 mmol/L (21-32) Anion Gap 8 (6-14) Blood Urea Nitrogen 21 mg/dL (8-26) Creatinine 1.7 mg/dL (0.7-1.3) Estimated GFR (Cockcroft-Gault) 39.7 Glucose Level 86 mg/dL (70-99) Calcium Level 9.2 mg/dL (8.5-10.1) Glucose (Fingerstick) 74 mg/dL (70-99) 84 mg/dL (70-99) 98 mg/dL (70-99) Test 07/27/18 07:50 07/27/18 08:35 Glucose (Fingerstick) 68 mg/dL (70-99) 63 mg/dL (70-99) Medications Current Medications Albuterol Sulfate (Ventolin) 2.5 mg 1X ONCE NEB Last administered on at 03:01; Start 07/24/18 at 03:00; Stop 07/24/18 at 03:01; Status DC Furosemide (Lasix) 40 mg 1X ONCE IVP Last administered on 07/24/18at 03:11; Start 07/24/18 at 03:30; Stop 07/24/18 at 03:31; Status DC Ondansetron HCl (Zofran) 4 mg PRN Q4HRS PRN IV NAUSEA/VOMITING; Start 07/24/18 at 04:00; Stop 07/25/18 at 03:59; Status DC Acetaminophen (Tylenol) 650 mg PRN Q4HRS PRN PO FEVER; Start 07/24/18 at 04:00 ; Stop 07/25/18 at 03:59; Status DC Nitroglycerin (Nitrostat) 0.4 mg PRN Q5MIN PRN SL CHEST PAIN; Start 07/24/18 at 04:00; Stop 07/25/18 at 03:59; Status DC Albuterol/ Ipratropium (Duoneb) 3 ml RTQID NEB Last administered on 07/25/18at 05:26; Start 07/24/18 at 08:00; Stop 07/25/18 at 07:59; Status DC Clopidogrel Bisulfate (Plavix) 75 mg DAILY PO Last administered on 07/27/18at 08 :15; Start 07/24/18 at 09:00 Ferrous Sulfate (Feosol) 325 mg DAILYWBKFT PO Last administered on 07/27/18at 08 :15; Start 07/24/18 at 09:00 Insulin Human Lispro (HumaLOG) TIDWMEALS SQ ; Start 07/24/18 at 12:00; Stop at 12:38; Status DC Metoprolol Succinate (Toprol Xl) 25 mg DAILY PO Last administered on 07/27/18 08:15; Start 07/24/18 at 09:00 Niacin (Slo-Niacin) 500 mg QHS PO Last administered on 07/26/18 22:11; Start 07/24/18 at 21:00 Tamsulosin HCl (Flomax) 0.4 mg HS PO Last administered on 07/26/18 22:11; Start 07/24/18 at 21:00 Acetaminophen/ Codeine Phosphate (Tylenol #3) 1 tab Q6HRS PRN PO PAIN Last administered on 07/26/18 05:55; Start 07/24/18 at 09:00 Amlodipine Besylate (Norvasc) 5 mg DAILY PO Last administered on 07/27/18 08: 15; Start 07/24/18 at 09:00 Aspirin (Children'S Aspirin) 81 mg DAILYWBKFT PO Last administered on 08:15; Start 07/24/18 at 09:00 Atorvastatin Calcium (Lipitor) 40 mg QHS PO Last administered on 07/26/18 22: 11; Start 07/24/18 at 21:00 Vitamin D (Vitamin D3) 5,000 unit DAILY PO Last administered on 07/27/18 08:14 ; Start 07/24/18 at 09:00 Non-Formulary Medication (Dulaglutide (Trulicity)) 1.5 mg DAILY SQ ; Start 07/24 at 09:00; Status UNV Glimepiride (Amaryl) 1 mg BID PO Last administered on 07/26/18 22:10; Start at 09:00 Insulin Glargine (Lantus) 40 units QHS SQ Last administered on 07/26/18 22:23 ; Start 07/24/18 at 21:00 Lactobacillus Rhamnosus (Culturelle) 1 cap BID PO Last administered on 08:15; Start 07/24/18 at 09:00 Levothyroxine Sodium (Synthroid) 50 mcg DAILY06 PO Last administered on 05:54; Start 07/24/18 at 11:00 Multivitamins/ Calcium (Thera-M Plus) 1 tab DAILY PO Last administered on 08:15; Start 07/24/18 at 09:00 Furosemide (Lasix) 40 mg DAILY PO Last administered on 07/24/18at 10:39; Start 07/24/18 at 09:00; Stop 07/24/18 at 16:15; Status DC Insulin Human Lispro (HumaLOG) 0-5 UNITS TIDWMEALS SQ Last administered on 07/26 17:31; Start 07/24/18 at 17:00 Dextrose 12.5 gm PRN Q15MIN PRN IV SEE COMMENTS Last administered on 07/27/18 02:35; Start 07/24/18 at 12:45 Furosemide (Lasix) 40 mg DAILY IVP Last administered on 07/25/18 08:26; Start 07/25/18 at 09:00; Stop 07/25/18 at 13:28; Status DC Amoxicillin/ Clavulanate Potassium (Augmentin 500/ 125mg) 1 tab BID PO Last administered on 07/27/18 08:16; Start 07/24/18 at 21:00; Stop 08/21/18 at 20:59 Furosemide (Lasix) 40 mg BID IVP Last administered on 07/26/18 15:30; Start at 21:00; Stop 07/26/18 at 15:40; Status DC Albumin Human 50 ml @ 50 mls/hr BID IV Last administered on 07/26/18 15:30; Start 07/25/18 at 21:00; Stop 07/26/18 at 15:40; Status DC Potassium Chloride (Klor-Con) 20 meq DAILYWBKFT PO Last administered on 08:15; Start 07/26/18 at 08:00 Albumin Human 50 ml @ 50 mls/hr BID92 IV Last administered on 07/27/18 08:16; Start 07/27/18 at 09:00 Furosemide (Lasix) 40 mg BID92 IVP Last administered on 07/27/18 08:16; Start 07/27/18 at 09:00 Metolazone (Zaroxolyn) 5 mg DAILY PO Last administered on 07/27/18 08:14; Start 07/27/18 at 09:00 Glucose (Insta-Glucose) 15 gm PRN Q15MIN PRN PO LOW BLOOD SUGAR; Start at 05:07 Active Scripts Active Humalog (Insulin Lispro) 100 Unit/1 Ml Insuln.pen 0 Units SQ TIDWMEALS Feosol (Ferrous Sulfate) 325 Mg Tablet 325 Mg PO DAILYWBKFT 30 Days Reported Zosyn 2.25 Gram Vial (Piperacillin Sodium/Tazobactam) 2.25 Gm Vial 2.25 Gm IV Q6HRS Trulicity (Dulaglutide) 1.5 Mg/0.5 Ml Pen.injctr 1.5 Mg SQ DAILY Toujeo Solostar (Insulin Glargine,Hum.rec.anlog) 300 Unit/1 Ml Insuln.pen 40 Unit SQ HS Flomax (Tamsulosin Hcl) 0.4 Mg Cap.er.24h 1 Cap PO HS Niaspan (Niacin) 500 Mg Tab.er.24h 1 Tab PO QHS Multivitamins (Multivitamin) 1 Each Tablet 1 Tab PO DAILY Metoprolol Succinate ( Xl ) (Metoprolol Succinate) 25 Mg Tab.er.24h 1 Tab PO DAILY Levothyroxine Sodium 50 Mcg Tablet 1 Tab PO DAILY06 Acidophilus (Lactobacillus Acidophilus) 1 Each Capsule 1 Each PO BID Hydrochlorothiazide Tablet (Hydrochlorothiazide) 25 Mg Tablet 25 Mg PO DAILY Glimepiride 1 Mg Tablet 1 Tab PO BID Clopidogrel (Clopidogrel Bisulfate) 75 Mg Tablet 1 Tab PO DAILY Vitamin D (Cholecalciferol (Vitamin D3)) 2,000 Unit Capsule 5,000 Unit PO DAILY Atorvastatin Calcium 40 Mg Tablet 1 Tab PO QHS Aspirin 81 Mg Tab.chew 81 Mg PO DAILY Amlodipine Besylate 5 Mg Tablet 1 Tab PO DAILY Tylenol With Codeine #3 Tablet (Acetaminophen With Codeine) 1 Each Tablet 1 Tab PO Q6HRS PRN Vitals/I & O Vital Sign - Last 24 Hours 07/26/18 07/26/18 07/26/18 07/26/18 09:13 09:14 11:09 14:54 Temp 97.6 97.9 Pulse 86 86 73 74 Resp 24 24 B/P (MAP) 153/69 153/69 129/73 (91) 145/74 (97) Pulse Ox 94 93 O2 Delivery Venturi Mask Venturi Mask O2 Flow Rate 4.0 4.0 07/26/18 07/26/18 07/27/18 07/27/18 19:20 20:18 00:13 02:51 Temp 98.3 97.4 97.5 Pulse 90 77 72 Resp 22 24 24 B/P (MAP) 137/67 (90) 132/71 (91) 116/58 (77) Pulse Ox 93 93 92 O2 Delivery Venturi Mask Venturi Mask Venturi Mask Venturi Mask O2 Flow Rate 3.0 4.0 4.0 3.0 07/27/18 07/27/18 07/27/18 05:00 08:15 08:15 Temp 96.8 Pulse 67 67 67 Resp 14 B/P (MAP) 151/77 (101) 151/77 151/77 Pulse Ox 94 O2 Delivery Venturi Mask O2 Flow Rate 4.0 Intake and Output 07/26/18 07/26/18 07/27/18 15:00 23:00 07:00 Intake Total 440 ml 240 ml Output Total 550 ml 400 ml 250 ml Balance -110 ml -160 ml -250 ml ROMAINE PEREZ [employer] SUPER[employer]OR Jul 27, 2018 08:53
--- NOTE | 2018-07-27 10:13 | PDOC ---
ROMAINE PEREZ CRANE LADLE PERSON 07/27/18 1013: PROGRESS NOTES Assessment 1. acute on chronic diastolic heart failure - Repeat CXR. Remains very edematous. Continue IV lasix with albumin. accurate I/Os, daily weights. 2. Known prior coronary artery disease - angina free. trop 0.030 peak, continue medical mgmt 3. recent cryptogenic stroke - event monitoring ordered after TIA but not completed by patient. consider loop implantation as outpatient. Otherwise reorder MCT on discharge. 4. Anemia - Hgb stable. 5. Renal insufficiency - Cr appears to be baseline ~1.5 - 1.7, stable today at 1.7 6. protein malnutrition - per PCP 7. 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 no chest pain, breathing getting better, still has swelling Objective Vital Signs Date Time Temp Pulse Resp B/P (MAP) Pulse Ox O2 Delivery O2 Flow Rate FiO2 07/27/18 08:15 67 151/77 07/27/18 08:00 Venturi Mask 3.0 07/27/18 05:00 96.8 14 94 Intake and Output 07/27/18 07:00 Intake Total 680 ml Output Total 1200 ml Balance -520 ml Intake Oral 680 ml Output Urine Total 1200 ml # Voids 3 Physical Exam gen: awake, no acute distress CV: RRR, no gallops Lungs: scattered crackles, improved from yesterday abd: soft, non tender, +BS Ext: ++ edema, unchanged Review of Relevant I have reviewed the following items cathy (where applicable) has been applied. Labs Laboratory Tests Test 07/25/18 11:14 07/25/18 16:44 07/25/18 21:14 07/26/18 08:01 Glucose (Fingerstick) 110 mg/dL (70-99) 93 mg/dL (70-99) 109 mg/dL (70-99) 80 mg/dL (70-99) Test 07/26/18 11:19 07/26/18 16:08 07/26/18 22:09 07/27/18 02:29 Glucose (Fingerstick) 128 mg/dL (70-99) 168 mg/dL (70-99) 211 mg/dL (70-99) 39 mg/dL (70-99) Test 07/27/18 02:45 07/27/18 02:53 07/27/18 05:02 07/27/18 05:22 Glucose Level 138 mg/dL (70-99) Glucose (Fingerstick) 94 mg/dL (70-99) 53 mg/dL (70-99) 87 mg/dL (70-99) Test 07/27/18 05:35 07/27/18 05:46 07/27/18 06:03 07/27/18 06:30 Hemoglobin 9.6 g/dL (13.0-17.5) Hematocrit 29.5 % (39.0-53.0) Sodium Level 141 mmol/L (136-145) Potassium Level 3.8 mmol/L (3.5-5.1) Chloride Level 105 mmol/L (98-107) Carbon Dioxide Level 28 mmol/L (21-32) Anion Gap 8 (6-14) Blood Urea Nitrogen 21 mg/dL (8-26) Creatinine 1.7 mg/dL (0.7-1.3) Estimated GFR (Cockcroft-Gault) 39.7 Glucose Level 86 mg/dL (70-99) Calcium Level 9.2 mg/dL (8.5-10.1) Glucose (Fingerstick) 74 mg/dL (70-99) 84 mg/dL (70-99) 98 mg/dL (70-99) Test 07/27/18 07:50 07/27/18 08:35 07/27/18 09:51 Glucose (Fingerstick) 68 mg/dL (70-99) 63 mg/dL (70-99) 102 mg/dL (70-99) Medications Current Medications Albuterol Sulfate (Ventolin) 2.5 mg 1X ONCE NEB Last administered on at 03:01; Start 07/24/18 at 03:00; Stop 07/24/18 at 03:01; Status DC Furosemide (Lasix) 40 mg 1X ONCE IVP Last administered on 07/24/18at 03:11; Start 07/24/18 at 03:30; Stop 07/24/18 at 03:31; Status DC Ondansetron HCl (Zofran) 4 mg PRN Q4HRS PRN IV NAUSEA/VOMITING; Start 07/24/18 at 04:00; Stop 07/25/18 at 03:59; Status DC Acetaminophen (Tylenol) 650 mg PRN Q4HRS PRN PO FEVER; Start 07/24/18 at 04:00 ; Stop 07/25/18 at 03:59; Status DC Nitroglycerin (Nitrostat) 0.4 mg PRN Q5MIN PRN SL CHEST PAIN; Start 07/24/18 at 04:00; Stop 07/25/18 at 03:59; Status DC Albuterol/ Ipratropium (Duoneb) 3 ml RTQID NEB Last administered on 07/25/18at 05:26; Start 07/24/18 at 08:00; Stop 07/25/18 at 07:59; Status DC Clopidogrel Bisulfate (Plavix) 75 mg DAILY PO Last administered on 07/27/18at 08 :15; Start 07/24/18 at 09:00 Ferrous Sulfate (Feosol) 325 mg DAILYWBKFT PO Last administered on 07/27/18at 08 :15; Start 07/24/18 at 09:00 Insulin Human Lispro (HumaLOG) TIDWMEALS SQ ; Start 07/24/18 at 12:00; Stop at 12:38; Status DC Metoprolol Succinate (Toprol Xl) 25 mg DAILY PO Last administered on 07/27/18at 08:15; Start 07/24/18 at 09:00 Niacin (Slo-Niacin) 500 mg QHS PO Last administered on 07/26/18at 22:11; Start 07/24/18 at 21:00 Tamsulosin HCl (Flomax) 0.4 mg HS PO Last administered on 07/26/18at 22:11; Start 07/24/18 at 21:00 Acetaminophen/ Codeine Phosphate (Tylenol #3) 1 tab Q6HRS PRN PO PAIN Last administered on 07/26/18at 05:55; Start 07/24/18 at 09:00 Amlodipine Besylate (Norvasc) 5 mg DAILY PO Last administered on 07/27/18at 08: 15; Start 07/24/18 at 09:00 Aspirin (Children'S Aspirin) 81 mg DAILYWBKFT PO Last administered on at 08:15; Start 07/24/18 at 09:00 Atorvastatin Calcium (Lipitor) 40 mg QHS PO Last administered on 07/26/18 22: 11; Start 07/24/18 at 21:00 Vitamin D (Vitamin D3) 5,000 unit DAILY PO Last administered on 07/27/18 08:14 ; Start 07/24/18 at 09:00 Non-Formulary Medication (Dulaglutide (Trulicity)) 1.5 mg DAILY SQ ; Start 07/24 at 09:00; Status UNV Glimepiride (Amaryl) 1 mg BID PO Last administered on 07/26/18 22:10; Start at 09:00 Insulin Glargine (Lantus) 40 units QHS SQ Last administered on 07/26/18 22:23 ; Start 07/24/18 at 21:00 Lactobacillus Rhamnosus (Culturelle) 1 cap BID PO Last administered on 08:15; Start 07/24/18 at 09:00 Levothyroxine Sodium (Synthroid) 50 mcg DAILY06 PO Last administered on 05:54; Start 07/24/18 at 11:00 Multivitamins/ Calcium (Thera-M Plus) 1 tab DAILY PO Last administered on 08:15; Start 07/24/18 at 09:00 Furosemide (Lasix) 40 mg DAILY PO Last administered on 07/24/18 10:39; Start 07/24/18 at 09:00; Stop 07/24/18 at 16:15; Status DC Insulin Human Lispro (HumaLOG) 0-5 UNITS TIDWMEALS SQ Last administered on 07/26 17:31; Start 07/24/18 at 17:00 Dextrose 12.5 gm PRN Q15MIN PRN IV SEE COMMENTS Last administered on 07/27/18 02:35; Start 07/24/18 at 12:45 Furosemide (Lasix) 40 mg DAILY IVP Last administered on 07/25/18 08:26; Start 07/25/18 at 09:00; Stop 07/25/18 at 13:28; Status DC Amoxicillin/ Clavulanate Potassium (Augmentin 500/ 125mg) 1 tab BID PO Last administered on 07/27/18 08:16; Start 07/24/18 at 21:00; Stop 08/21/18 at 20:59 Furosemide (Lasix) 40 mg BID IVP Last administered on 07/26/18at 15:30; Start at 21:00; Stop 07/26/18 at 15:40; Status DC Albumin Human 50 ml @ 50 mls/hr BID IV Last administered on 07/26/18at 15:30; Start 07/25/18 at 21:00; Stop 07/26/18 at 15:40; Status DC Potassium Chloride (Klor-Con) 20 meq DAILYWBKFT PO Last administered on at 08:15; Start 07/26/18 at 08:00 Albumin Human 50 ml @ 50 mls/hr BID92 IV Last administered on 07/27/18at 08:16; Start 07/27/18 at 09:00 Furosemide (Lasix) 40 mg BID92 IVP Last administered on 07/27/18at 08:16; Start 07/27/18 at 09:00 Metolazone (Zaroxolyn) 5 mg DAILY PO Last administered on 07/27/18at 08:14; Start 07/27/18 at 09:00 Glucose (Insta-Glucose) 15 gm PRN Q15MIN PRN PO LOW BLOOD SUGAR; Start at 05:07 Active Scripts Active Humalog (Insulin Lispro) 100 Unit/1 Ml Insuln.pen 0 Units SQ TIDWMEALS Feosol (Ferrous Sulfate) 325 Mg Tablet 325 Mg PO DAILYWBKFT 30 Days Reported Zosyn 2.25 Gram Vial (Piperacillin Sodium/Tazobactam) 2.25 Gm Vial 2.25 Gm IV Q6HRS Trulicity (Dulaglutide) 1.5 Mg/0.5 Ml Pen.injctr 1.5 Mg SQ DAILY [place] Solostar (Insulin Glargine,Hum.rec.anlog) 300 Unit/1 Ml Insuln.pen 40 Unit SQ HS Flomax (Tamsulosin Hcl) 0.4 Mg Cap.er.24h 1 Cap PO HS Niaspan (Niacin) 500 Mg Tab.er.24h 1 Tab PO QHS Multivitamins (Multivitamin) 1 Each Tablet 1 Tab PO DAILY Metoprolol Succinate ( Xl ) (Metoprolol Succinate) 25 Mg Tab.er.24h 1 Tab PO DAILY Levothyroxine Sodium 50 Mcg Tablet 1 Tab PO DAILY06 Acidophilus (Lactobacillus Acidophilus) 1 Each Capsule 1 Each PO BID Hydrochlorothiazide Tablet (Hydrochlorothiazide) 25 Mg Tablet 25 Mg PO DAILY Glimepiride 1 Mg Tablet 1 Tab PO BID Clopidogrel (Clopidogrel Bisulfate) 75 Mg Tablet 1 Tab PO DAILY Vitamin D (Cholecalciferol (Vitamin D3)) 2,000 Unit Capsule 5,000 Unit PO DAILY Atorvastatin Calcium 40 Mg Tablet 1 Tab PO QHS Aspirin 81 Mg Tab.chew 81 Mg PO DAILY Amlodipine Besylate 5 Mg Tablet 1 Tab PO DAILY Tylenol With Codeine #3 Tablet (Acetaminophen With Codeine) 1 Each Tablet 1 Tab PO Q6HRS PRN Vitals/I & O Vital Sign - Last 24 Hours 07/26/18 07/26/18 07/26/18 07/26/18 11:09 14:54 19:20 20:18 Temp 97.6 97.9 98.3 Pulse 73 74 90 Resp 24 24 22 B/P (MAP) 129/73 (91) 145/74 (97) 137/67 (90) Pulse Ox 94 93 93 O2 Delivery Venturi Mask Venturi Mask Venturi Mask Venturi Mask O2 Flow Rate 4.0 4.0 3.0 4.0 07/27/18 07/27/18 07/27/18 07/27/18 00:13 02:51 05:00 08:00 Temp 97.4 97.5 96.8 Pulse 77 72 67 Resp 24 24 14 B/P (MAP) 132/71 (91) 116/58 (77) 151/77 (101) Pulse Ox 93 92 94 O2 Delivery Venturi Mask Venturi Mask Venturi Mask Venturi Mask O2 Flow Rate 4.0 3.0 4.0 3.0 07/27/18 07/27/18 08:15 08:15 Pulse 67 67 B/P (MAP) 151/77 151/77 Intake and Output 07/26/18 07/26/18 07/27/18 15:00 23:00 07:00 Intake Total 440 ml 240 ml Output Total 550 ml 400 ml 250 ml Balance -110 ml -160 ml -250 ml LOKESH PENA MD 07/27/18 7042: PROGRESS NOTES Assessment Patient seen and examined Acute on chronic diastolic heart failure. Continues to slowly improve. Continue medical treatment. Coronary artery disease. Minimal elevation of troponin to 0.03. Mild demand ischemia. Continuing present treatment. Recent cryptogenic stroke. Neurologically improved. Consider outpatient monitoring or implantable device. Renal insufficiency. Stable. Peripheral artery disease. Status post ELECTRONIC TEST TECHNICIAN of the lower extremities as well as recent toe amputation secondary to gangrene and osteomyelitis. ROMAINE PEREZ APRN Jul 27, 2018 10:13 LOKESH PENA MD Jul 27, 2018 18:45
[2018-07-27] MEDS ORDERED: EPOETIN ALFA 10,000 UNIT/ML VIAL. SQ ONE (14:00)
[2018-07-27] MEDS: ATORVASTATIN CALCIUM 20 MG TABLET PO SCH (20:42)
[2018-07-27] MEDS: TAMSULOSIN 0.4 MG CAP.ER.24H. PO SCH (20:42)
[2018-07-27] MEDS: NIACIN ER 500 MG TABLET.ER PO SCH (20:42)
[2018-07-27] MEDS: FUROSEMIDE 40 MG TABLET PO SCH (20:42)
--- NOTE | 2018-07-27 20:46 | PN ---
DATE: 07/27/2018 SUBJECTIVE: The patient is sitting comfortably in his recliner, in no apparent respiratory distress, awake, alert. On questioning him, he apparently had an episode of hypoglycemia last night, treated with orange juice and D50. He continued to complain of orthopnea, but he has been able to work with physical therapy keeping his oxygen saturation at 93-95%. We added metolazone this morning. PHYSICAL EXAMINATION: GENERAL: When I examined him, he looked pale, no jaundice, cyanosis, or thyromegaly. No jugular venous distension. No limb edema. VITAL SIGNS: His heart rate was 76, blood pressure was 143/72, temperature was 96.8, respiratory rate was 20, and oxygen saturation was 94% on 4 liters of oxygen. HEAD, EYES, EARS, NOSE AND THROAT: Showed normocephalic, atraumatic. NECK: Supple. HEART: Showed normal first and second heart sounds. No gallop, rub or murmur. CHEST: Clear to auscultation. No crepitation or rhonchi. ABDOMEN: Distended, soft, nontender. NEUROLOGIC: He is awake, alert, at times confused. All his cranial nerves are intact. He moves extremities without difficulty. He is able to walk with a walker. He has bilateral, forefoot amputation. His intake over the last 24 hours was 650, output was 950. LABORATORY DATA: As of this morning, his hemoglobin was 9.6, hematocrit 29.5. His chemistry showed a serum sodium 141, potassium 3.8, chloride 105, bicarbonate 28, anion gap of 8, BUN 21, creatinine 1.7. Estimated GFR was 40 mL per minute, his glucose 86, calcium was 9.2. ASSESSMENT: 1. Acute on chronic diastolic congestive heart failure. The patient continued to have bilateral pleural effusion, marked bilateral lower limb edema. 2. Coronary artery disease, chest pain free. 3. Chronic renal failure with his serum creatinine has risen slightly to 1.7. 4. Severe protein calorie malnutrition with serum albumin of 2.4 g/dL. 5. Peripheral vascular disease, status post bilateral forefoot amputation. 6. 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 PLAN: To continue with oral Augmentin. Continue with IV Lasix, 25 human albumin as well as Zaroxolyn. Apparently, he is scheduled for Procrit injection tomorrow. I contacted the pharmacy to see if we can arrange for that to be done here. ABDON MABRY MD DR: KHADAR/shahla JOB#: [id number] / [id number]
[2018-07-27] MEDS ORDERED: INSULIN GLARGINE 300 UNITS/3 ML INSULN.PEN. SQ SCH (21:00)
[2018-07-28 05:09] VITALS: BP 112/66
[2018-07-28] MEDS: LEVOTHYROXINE 50 MCG TABLET PO SCH (05:30)
[2018-07-28 06:24] LABS: HEMATOCRIT 29.1 % (39.0-53.0); HEMOGLOBIN 9.4 g/dL (13.0-17.5)
[2018-07-28 06:33] LABS: CALCIUM 8.8 mg/dL (8.5-10.1); GFR 32.9; POTASSIUM 4.3 mmol/L (3.5-5.1)
[2018-07-28] MEDS: INSULIN LISPRO 300 UNITS/3 ML INSULN.PEN. SQ SCH (07:51)
[2018-07-28] MEDS: CLOPIDOGREL BISULFATE 75 MG TABLET PO SCH (08:17)
[2018-07-28] MEDS: CHOLECALCIFEROL (VITAMIN D3) 1,000 UNIT TABLET PO SCH (08:17)
[2018-07-28] MEDS: FERROUS SULFATE 325 MG TABLET. PO SCH (08:17)
[2018-07-28] MEDS: MULTIVITAMIN with MINERAL TABLET. PO SCH (08:17)
[2018-07-28] MEDS: ASPIRIN 81 MG TAB.CHEW PO SCH (08:18)
[2018-07-28] MEDS: AMOXICILLIN/K CLAV 500/125MG TABLET. PO SCH (08:18)
[2018-07-28] MEDS: FUROSEMIDE 40 MG TABLET PO SCH (08:18)
[2018-07-28] MEDS: metOLazone 5 MG TABLET PO SCH (08:18)
[2018-07-28] MEDS: NON FORMULARY ITEM (Dulaglutide (Trulicity) 1.5 MG) SQ SCH (08:19)
[2018-07-28] MEDS: POTASSIUM CHLORIDE 20 MEQ TABLET.ER. PO SCH (08:19)
[2018-07-28] MEDS ORDERED: EPOETIN ALFA 10,000 UNIT/ML VIAL. SQ ONE (09:00)
[2018-07-28] MEDS: amLODIPine BESYLATE 5 MG TABLET PO SCH (09:00)
[2018-07-28] MEDS: LACTOBACILLUS RHAMNOSUS GG 1 CAPSULE. PO SCH (09:00)
[2018-07-28] MEDS: GLIMEPIRIDE 2 MG TABLET PO SCH (09:00)
[2018-07-28] MEDS: METOPROLOL SUCC 24HR ER 25 MG TAB.ER.24H. PO SCH (09:00)
--- NOTE | 2018-07-28 09:15 | PDOC ---
PROGRESS NOTES Assessment 1. acute on chronic diastolic heart failure - Repeat CXR. weight down 12 lbs. Cr increasing. decrease to oral lasix daily. 2. Known prior coronary artery disease - angina free. trop 0.030 peak, continue medical mgmt 3. recent cryptogenic stroke - event monitoring ordered after TIA but not completed by patient. consider loop implantation as outpatient. Otherwise reorder MCT on discharge. 4. Anemia - Hgb stable. 5. Renal insufficiency - Cr appears to be baseline ~1.5 - 1.7, up today to 2.0. decrease diuretic 6. protein malnutrition - per PCP 7. PAD s/p recent HAM FACER bilateral lower extremities 8. 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 breathing improving. no chest pain, no palpitations. Objective Vital Signs Date Time Temp Pulse Resp B/P (MAP) Pulse Ox O2 Delivery O2 Flow Rate FiO2 07/28/18 05:09 98.3 79 20 112/66 (81) 96 Venturi Mask 3.0 Intake and Output 07/28/18 06:59 Intake Total 270 ml Balance 270 ml Intake Oral 220 ml IV Total 50 ml # Voids 6 # Bowel Movements 4 Physical Exam gen: awake alert NAD CV: RRR, no gallops, clicks or rubs Lungs: few scattered basilar crackles abd: soft nontender bowel sounds present ext: +1-2 edema, improving Review of Relevant I have reviewed the following items cathy (where applicable) has been applied. Labs Laboratory Tests Test 07/26/18 11:19 07/26/18 16:08 07/26/18 22:09 07/27/18 02:29 Glucose (Fingerstick) 128 mg/dL (70-99) 168 mg/dL (70-99) 211 mg/dL (70-99) 39 mg/dL (70-99) Test 07/27/18 02:45 07/27/18 02:53 07/27/18 05:02 07/27/18 05:22 Glucose Level 138 mg/dL (70-99) Glucose (Fingerstick) 94 mg/dL (70-99) 53 mg/dL (70-99) 87 mg/dL (70-99) Test 07/27/18 05:35 07/27/18 05:46 07/27/18 06:03 07/27/18 06:30 Hemoglobin 9.6 g/dL (13.0-17.5) Hematocrit 29.5 % (39.0-53.0) Sodium Level 141 mmol/L (136-145) Potassium Level 3.8 mmol/L (3.5-5.1) Chloride Level 105 mmol/L (98-107) Carbon Dioxide Level 28 mmol/L (21-32) Anion Gap 8 (6-14) Blood Urea Nitrogen 21 mg/dL (8-26) Creatinine 1.7 mg/dL (0.7-1.3) Estimated GFR (Cockcroft-Gault) 39.7 Glucose Level 86 mg/dL (70-99) Calcium Level 9.2 mg/dL (8.5-10.1) Glucose (Fingerstick) 74 mg/dL (70-99) 84 mg/dL (70-99) 98 mg/dL (70-99) Test 07/27/18 07:50 07/27/18 08:35 07/27/18 09:51 07/27/18 12:06 Glucose (Fingerstick) 68 mg/dL (70-99) 63 mg/dL (70-99) 102 mg/dL (70-99) 132 mg/dL (70-99) Test 07/27/18 16:28 07/27/18 19:54 07/28/18 06:09 07/28/18 07:22 Glucose (Fingerstick) 188 mg/dL (70-99) 192 mg/dL (70-99) 132 mg/dL (70-99) Hemoglobin 9.4 g/dL (13.0-17.5) Hematocrit 29.1 % (39.0-53.0) Sodium Level 142 mmol/L (136-145) Potassium Level 4.3 mmol/L (3.5-5.1) Chloride Level 104 mmol/L (98-107) Carbon Dioxide Level 31 mmol/L (21-32) Anion Gap 7 (6-14) Blood Urea Nitrogen 26 mg/dL (8-26) Creatinine 2.0 mg/dL (0.7-1.3) Estimated GFR (Cockcroft-Gault) 32.9 Glucose Level 123 mg/dL (70-99) Calcium Level 8.8 mg/dL (8.5-10.1) Medications Current Medications Albuterol Sulfate (Ventolin) 2.5 mg 1X ONCE NEB Last administered on at 03:01; Start 07/24/18 at 03:00; Stop 07/24/18 at 03:01; Status DC Furosemide (Lasix) 40 mg 1X ONCE IVP Last administered on 07/24/18at 03:11; Start 07/24/18 at 03:30; Stop 07/24/18 at 03:31; Status DC Ondansetron HCl (Zofran) 4 mg PRN Q4HRS PRN IV NAUSEA/VOMITING; Start 07/24/18 at 04:00; Stop 07/25/18 at 03:59; Status DC Acetaminophen (Tylenol) 650 mg PRN Q4HRS PRN PO FEVER; Start 07/24/18 at 04:00 ; Stop 07/25/18 at 03:59; Status DC Nitroglycerin (Nitrostat) 0.4 mg PRN Q5MIN PRN SL CHEST PAIN; Start 07/24/18 at 04:00; Stop 07/25/18 at 03:59; Status DC Albuterol/ Ipratropium (Duoneb) 3 ml RTQID NEB Last administered on 07/25/18at 05:26; Start 07/24/18 at 08:00; Stop 07/25/18 at 07:59; Status DC Clopidogrel Bisulfate (Plavix) 75 mg DAILY PO Last administered on 07/28/18at 08 :17; Start 07/24/18 at 09:00 Ferrous Sulfate (Feosol) 325 mg DAILYWBKFT PO Last administered on 07/28/18at 08 :17; Start 07/24/18 at 09:00 Insulin Human Lispro (HumaLOG) TIDWMEALS SQ ; Start 07/24/18 at 12:00; Stop at 12:38; Status DC Metoprolol Succinate (Toprol Xl) 25 mg DAILY PO Last administered on 07/27/18at 08:15; Start 07/24/18 at 09:00 Niacin (Slo-Niacin) 500 mg QHS PO Last administered on 07/27/18at 20:42; Start 07/24/18 at 21:00 Tamsulosin HCl (Flomax) 0.4 mg HS PO Last administered on 07/27/18at 20:42; Start 07/24/18 at 21:00 Acetaminophen/ Codeine Phosphate (Tylenol #3) 1 tab Q6HRS PRN PO PAIN Last administered on 07/26/18 05:55; Start 07/24/18 at 09:00 Amlodipine Besylate (Norvasc) 5 mg DAILY PO Last administered on 07/27/18 08: 15; Start 07/24/18 at 09:00 Aspirin (Children'S Aspirin) 81 mg DAILYWBKFT PO Last administered on 08:18; Start 07/24/18 at 09:00 Atorvastatin Calcium (Lipitor) 40 mg QHS PO Last administered on 07/27/18 20: 42; Start 07/24/18 at 21:00 Vitamin D (Vitamin D3) 5,000 unit DAILY PO Last administered on 07/28/18 08:17 ; Start 07/24/18 at 09:00 Non-Formulary Medication (Dulaglutide (Trulicity)) 1.5 mg DAILY SQ ; Start 07/24 at 09:00; Status UNV Glimepiride (Amaryl) 1 mg BID PO Last administered on 07/27/18 20:42; Start at 09:00 Insulin Glargine (Lantus) 40 units QHS SQ Last administered on 07/26/18 22:23 ; Start 07/24/18 at 21:00; Stop 07/27/18 at 13:08; Status DC Lactobacillus Rhamnosus (Culturelle) 1 cap BID PO Last administered on 20:42; Start 07/24/18 at 09:00 Levothyroxine Sodium (Synthroid) 50 mcg DAILY06 PO Last administered on 05:30; Start 07/24/18 at 11:00 Multivitamins/ Calcium (Thera-M Plus) 1 tab DAILY PO Last administered on 08:17; Start 07/24/18 at 09:00 Furosemide (Lasix) 40 mg DAILY PO Last administered on 07/24/18 10:39; Start 07/24/18 at 09:00; Stop 07/24/18 at 16:15; Status DC Insulin Human Lispro (HumaLOG) 0-5 UNITS TIDWMEALS SQ Last administered on 4/18 /19at 17:20; Start 07/24/18 at 17:00 Dextrose 12.5 gm PRN Q15MIN PRN IV SEE COMMENTS Last administered on 07/27/18at 02:35; Start 07/24/18 at 12:45 Furosemide (Lasix) 40 mg DAILY IVP Last administered on 07/25/18 08:26; Start 07/25/18 at 09:00; Stop 07/25/18 at 13:28; Status DC Amoxicillin/ Clavulanate Potassium (Augmentin 500/ 125mg) 1 tab BID PO Last administered on 07/28/18 08:18; Start 07/24/18 at 21:00; Stop 08/21/18 at 20:59 Furosemide (Lasix) 40 mg BID IVP Last administered on 07/26/18at 15:30; Start at 21:00; Stop 07/26/18 at 15:40; Status DC Albumin Human 50 ml @ 50 mls/hr BID IV Last administered on 07/26/18at 15:30; Start 07/25/18 at 21:00; Stop 07/26/18 at 15:40; Status DC Potassium Chloride (Klor-Con) 20 meq DAILYWBKFT PO Last administered on 08:19; Start 07/26/18 at 08:00 Albumin Human 50 ml @ 50 mls/hr BID92 IV Last administered on 07/27/18at 08:16; Start 07/27/18 at 09:00; Stop 07/27/18 at 16:13; Status DC Furosemide (Lasix) 40 mg BID92 IVP Last administered on 07/27/18at 08:16; Start 07/27/18 at 09:00; Stop 07/27/18 at 16:13; Status DC Metolazone (Zaroxolyn) 5 mg DAILY PO Last administered on 07/28/18 08:18; Start 07/27/18 at 09:00 Glucose (Insta-Glucose) 15 gm PRN Q15MIN PRN PO LOW BLOOD SUGAR; Start at 05:07 Insulin Glargine (Lantus) 20 units QHS SQ Last administered on 07/27/18at 21:01 ; Start 07/27/18 at 21:00 Epoetin Justino (Procrit) 10,000 unit 1X ONCE SQ ; Start 07/27/18 at 14:00; Stop 07/27/18 at 14:01; Status Cancel Epoetin Justino (Procrit) 10,000 unit 1X ONCE SQ Last administered on 07/28/18at 08:37; Start 07/28/18 at 09:00; Stop 07/28/18 at 09:01; Status DC Furosemide (Lasix) 40 mg BID PO Last administered on 07/28/18at 08:18; Start at 21:00 Active Scripts Active Humalog (Insulin Lispro) 100 Unit/1 Ml Insuln.pen 0 Units SQ TIDWMEALS Feosol (Ferrous Sulfate) 325 Mg Tablet 325 Mg PO DAILYWBKFT 30 Days Reported Zosyn 2.25 Gram Vial (Piperacillin Sodium/Tazobactam) 2.25 Gm Vial 2.25 Gm IV Q6HRS Trulicity (Dulaglutide) 1.5 Mg/0.5 Ml Pen.injctr 1.5 Mg SQ DAILY [place] Solostar (Insulin Glargine,Hum.rec.anlog) 300 Unit/1 Ml Insuln.pen 40 Unit SQ HS Flomax (Tamsulosin Hcl) 0.4 Mg Cap.er.24h 1 Cap PO HS Niaspan (Niacin) 500 Mg Tab.er.24h 1 Tab PO QHS Multivitamins (Multivitamin) 1 Each Tablet 1 Tab PO DAILY Metoprolol Succinate ( Xl ) (Metoprolol Succinate) 25 Mg Tab.er.24h 1 Tab PO DAILY Levothyroxine Sodium 50 Mcg Tablet 1 Tab PO DAILY06 Acidophilus (Lactobacillus Acidophilus) 1 Each Capsule 1 Each PO BID Hydrochlorothiazide Tablet (Hydrochlorothiazide) 25 Mg Tablet 25 Mg PO DAILY Glimepiride 1 Mg Tablet 1 Tab PO BID Clopidogrel (Clopidogrel Bisulfate) 75 Mg Tablet 1 Tab PO DAILY Vitamin D (Cholecalciferol (Vitamin D3)) 2,000 Unit Capsule 5,000 Unit PO DAILY Atorvastatin Calcium 40 Mg Tablet 1 Tab PO QHS Aspirin 81 Mg Tab.chew 81 Mg PO DAILY Amlodipine Besylate 5 Mg Tablet 1 Tab PO DAILY Tylenol With Codeine #3 Tablet (Acetaminophen With Codeine) 1 Each Tablet 1 Tab PO Q6HRS PRN Vitals/I & O Vital Sign - Last 24 Hours 07/27/18 07/27/18 07/27/18 07/27/18 09:46 14:30 19:09 19:10 Temp 96.8 98.0 97.6 Pulse 76 73 81 Resp 20 22 20 B/P (MAP) 143/72 (95) 119/67 (84) 126/67 (86) Pulse Ox 94 91 94 O2 Delivery Venturi Mask Venturi Mask Venturi Mask O2 Flow Rate 4.0 3.0 3.0 07/27/18 07/28/18 22:12 05:09 Temp 97.2 98.3 Pulse 70 79 Resp 22 20 B/P (MAP) 109/71 (84) 112/66 (81) Pulse Ox 94 96 O2 Delivery Venturi Mask Venturi Mask O2 Flow Rate 3.0 3.0 Intake and Output 07/27/18 07/27/18 07/28/18 14:59 22:59 06:59 Intake Total 150 ml 120 ml Balance 150 ml 120 ml ROMAINE PEREZ ZANJERO Jul 28, 2018 09:15
[2018-07-28 10:39] VITALS: BP 137/70
--- NOTE | 2018-07-28 11:08 | RAD ---
Chest, 2 views, 07/28/2018: HISTORY: Congestive heart failure Comparison is made to a study from 07/24/2018. Moderate patchy bilateral pulmonary infiltrates have improved slightly. There is moderate residual right parahilar infiltrate. The pleural effusions have diminished. There is a small amount residual bilateral pleural fluid. The heart size is unchanged. No new abnormality is detected. IMPRESSION: Resolving pleural effusions with improvement in the patchy bilateral pulmonary infiltrates, compatible with improving congestive heart failure. A component of residual pneumonia cannot be excluded. Electronically signed by: Amador Suarez MD (07/28/2018 11:05 AM) [facility]
[2018-07-28] MEDS ORDERED: FURO-68 PO (12:12)
[2018-07-28] MEDS ORDERED: METO5TAB4 PO (12:12)
[2018-07-28] MEDS ORDERED: AMOX1TAB58 PO (12:12)
--- NOTE | 2018-07-28 14:02 | DS ---
DATE OF DISCHARGE: HOSPITAL COURSE: The patient is a 73-year-old male patient who was admitted shortly after his discharge from [facility] and [facility] with the complaint of severe shortness of breath for which he came to the Emergency Room of [facility] where he was found to have bilateral pleural effusion and there was pulmonary edema and marked bilateral lower extremity for which we started him on IV Lasix together with the human albumin given his severe hypoalbuminemia. We added also metolazone 5 mg every day. The patient did well, in fact, he lost about 12 pounds; unfortunately, his creatinine has started creeping up from 1.6-2 and as he felt much improved, has been able to walk around without any problem. A decision was made to discharge him home with home health to continue with his Lasix 40 mg once a day and metolazone 5 mg every Tuesday, Tuesday, Tuesday as well as Augmentin 500/125 one tablet twice a day. PHYSICAL EXAMINATION: GENERAL: When I examined him this afternoon, he looked pale, but no jaundice, cyanosis, or thyromegaly. No jugular venous distension. No lower limb edema. VITAL SIGNS: His heart rate was 77, blood pressure was 137/70, temperature was 98.2, respiratory rate 22, and oxygen saturation was 94% on 3 liters of oxygen by face mask as he does not tolerate nasal cannula. HEAD, EYES, EARS, NOSE AND THROAT: Showed normocephalic, atraumatic. NECK: Supple. HEART: Showed normal first and second heart sounds. No gallop, rub or murmur. CHEST: Clear to auscultation. No crepitation or rhonchi. ABDOMEN: Distended, soft, nontender. No guarding or rigidity. No organomegaly. All hernial orifices are intact. Bowel sounds normal. NEUROLOGIC: He was awake, alert, responding appropriately. He is very confused and forgetful, but he seemed to be neurologically grossly intact. He moves extremities without difficulty, ambulates with a walker. He has right transmetatarsal amputation and he has left first big toe amputation. His intake over the last 24 hours was 1600, output was 1200. LABORATORY DATA: As of this morning, his serum sodium 142, potassium 4.3, chloride 104, bicarbonate 31, anion gap of 7, BUN 26, creatinine 2, estimated GFR was 83 mL per minute, his glucose 123, calcium was 8.8. His hemoglobin was 9.4, hematocrit 29. DISCHARGE MEDICATIONS: He was discharged home to continue his furosemide 40 mg once a day; Lantus 20 units at bedtime; metolazone 5 mg every Tuesday, Tuesday, Tuesday. He is on potassium chloride 20 mEq once a day, Augmentin 500/125 one tablet twice a day for 10 more days, atorvastatin calcium 40 mg at bedtime, tamsulosin 0.4 mg at bedtime, niacin 500 mg at bedtime. He is on Humalog insulin as insulin sliding scale before meals. He is on levothyroxine 50 mcg once a day, multivitamin 1 tablet once a day, lactobacillus rhamnosus 1 capsule twice a day, glimepiride 1 mg twice a day. He is on Trulicity 1.5 mg subcutaneous once a week, vitamin D 5000 international units once a day, aspirin 81 mg once a day, amlodipine 5 mg once a day, Tylenol No. 3 one tablet every 6 hours, metoprolol succinate 25 mg once a day, ferrous sulfate 325 mg daily and Plavix 75 mg once a day. FINAL DISCHARGE DIAGNOSES: 1. Acute on chronic diastolic congestive heart failure. The patient presented with bilateral lower limb edema and bilateral pleural effusion. His most recent chest x-ray showed that the patient had resolving pleural effusion with improvement in the patchy bilateral pulmonary infiltrate compatible with improving congestive heart failure, component of residual pneumonia cannot be excluded. 2. Coronary artery disease, currently chest pain free. 3. [id number]-ogoqtbh kidney injury. Creatinine has risen from 1.6-2. 4. Severe protein calorie malnutrition with serum albumin is 2.4 g/dL. 5. Peripheral vascular disease, status post bilateral lower extremity revascularization. 6. 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 7. Type 2 diabetes mellitus with also peripheral neuropathy. 8. Anemia of chronic kidney disease for which he is getting Procrit 10,000 units every 2 weeks. ABDON MABRY MD DR: KHADAR/shahla JOB#: [id number] / [id number]
[2018-07-29] MEDS ORDERED: FUROSEMIDE 40 MG TABLET PO SCH (09:00)
--- NOTE | 2018-07-31 12:58 | EKG ---
[address] [address] Test Date: 2018-07-24 Test Time: 02:39:20 Pat Name: TIESHA YOUSIF Department: Room: Gender: M [employer]: : [id number] Requested By: FARA DEL TORO Order Number: [id number] Reading MD: Deep Spaulding Measurements Intervals [place] Rate: 78 P: 0 WA: 162 QRS: -3 QRSD: 84 T: 27 QT: 390 QTc: 448 Interpretive Statements SINUS RHYTHM LEFTWARD AXIS LOW LIMB LEAD VOLTAGE Electronically Signed On 07-31-2018 12:57:52 CDT by Deep Spaulding
== END 2018-07-28 14:42 | disposition home health service (06) | DRG 291 ==
LOC: ER 02:06 → 1 SOUTH 03:34
PROVIDERS: ADMIT Family Medicine; ATTEND Internal Medicine
DX: I13.0 Hypertensive heart and chronic kidney disease with heart failure and stage 1 through stage 4 chronic kidney disease, or unspecified chronic kidney disease (principal); I50.33 Acute on chronic diastolic (congestive) heart failure; E43 Unspecified severe protein-calorie malnutrition; N17.9 Acute kidney failure, unspecified; E11.52 Type 2 diabetes mellitus with diabetic peripheral angiopathy with gangrene; I24.8 Other forms of acute ischemic heart disease; D63.1 Anemia in chronic kidney disease; E03.9 Hypothyroidism, unspecified; E11.22 Type 2 diabetes mellitus with diabetic chronic kidney disease; E11.649 Type 2 diabetes mellitus with hypoglycemia without coma; E11.69 Type 2 diabetes mellitus with other specified complication; E78.5 Hyperlipidemia, unspecified; I25.10 Atherosclerotic heart disease of native coronary artery without angina pectoris; N18.9 Chronic kidney disease, unspecified; N40.0 Benign prostatic hyperplasia without lower urinary tract symptoms; R09.02 Hypoxemia; Z79.899 Other long term (current) drug therapy; Z86.73 Personal history of transient ischemic attack (TIA), and cerebral infarction without residual deficits; Z89.431 Acquired absence of right foot; Z89.432 Acquired absence of left foot; Z68.36 Body mass index [BMI] 36.0-36.9, adult
CPT/HCPCS: 36415; 71046; 80048; 80053; 82947; 83690; 83735; 83880; 84484; 85014; 85018; 85025; 85610; 93005; 93306; 94640; 96374; J0886; J1815; J1940; J7613; J7620; P9046; 97110; 97116; 97530; 99285-25; J0885